=== PATIENT | female | born 1930 | race Caucasian/White ===

== ENCOUNTER 2018-12-13 03:43 | Emergency (ER) | payer MEDICARE ==
--- NOTE | 2018-12-13 03:53 | Emergency Department Record ---
History of Present Illness - General Chief Complaint: Shortness of breath Stated Complaint: MARLON Time Seen by Provider: 12/13/18 03:47 Source: Patient, EMS Mode of Arrival: Ambulatory Limitations: No limitations - History of Present Illness Initial Comments: 88 yo female presents with shortness of breath for three days per EMS. The patient denies any chest pain. Per the retirement records she moved into the facility on December 10. The EMS providers otherwise were unable to provide any other history. The patient has dementia and is a limited historian regarding historical details. The patient has not been to [facility] prior. The patient states she has not had cough, fever, pain. Other than a medication list no other medical history was provided. The patient was found hypoxic at the retirement in the 's. She was placed on BiPap with improvement into the s. MD Complaint: Shortness of breath -: Days(s) Severity: Moderate Quality: Other Consistency: Constant Improves With: Nothing Worsens With: Exertion Known History Of: Other Context: Other Associated Symptoms: Denies other symptoms Treatments Prior to Arrival: Other (BiPap) - Related Data Home Medications Medication Instructions Recorded Confirmed Last Taken Acetaminophen [Tylenol Es] 1 tab PO Q8HR PRN 12/13/18 12/13/18 12/12/18 Alendronate Sodium 70 mg PO WEEKLY 12/13/18 12/13/18 12/07/18 Calcium Carbonate/Vitamin D3 1 each PO DAILY 12/13/18 12/13/18 12/12/18 [Calcium 600 + Vit D Tablet] Cyanocobalamin (Vitamin B-12) 5,000 mcg PO DAILY 12/13/18 12/13/18 12/12/18 [Vitamin B12] Danazol 200 mg PO DAILY 12/13/18 12/13/18 12/12/18 Eltrombopag Olamine [Promacta] 75 mg PO DAILY 12/13/18 12/13/18 12/12/18 Folic Acid 1 mg PO DAILY 12/13/18 12/13/18 12/12/18 Levothyroxine Sodium 50 mcg PO DAILY 12/13/18 12/13/18 12/12/18 Metoprolol Succinate 25 mg PO DAILY 12/13/18 12/13/18 12/12/18 Multivitamin [Multiple Vitamins] 1 each PO DAILY 12/13/18 12/13/18 12/12/18 Prednisone 10 mg PO DAILY 12/13/18 12/13/18 12/12/18 Sertraline HCl [Zoloft] 50 mg PO DAILY 12/13/18 12/13/18 12/12/18 Warfarin Sodium 2.5 mg PO DAILY 12/13/18 12/13/18 12/12/18 Allergies Allergy/AdvReac Type Severity Reaction Status Date / Time No Known Drug Allergies Allergy Verified 12/13/18 03:59 Review of Systems ROS unobtainable: Other (On BiPap) Constitutional: Reports: Malaise, Weakness. Denies: Chills, Fever Eyes: Denies: Eye discharge ENT: Denies: Congestion, Throat pain Respiratory: Reports: Dyspnea. Denies: Cough Cardiovascular: Reports: Dyspnea on exertion, Edema. Denies: Chest pain, Palpitations, Syncope Endocrine: Reports: Fatigue Gastrointestinal: Denies: Abdominal pain, Diarrhea, Nausea, Vomiting Genitourinary: Denies: Dysuria, Urgency Musculoskeletal: Denies: Arthralgia, Back pain, Myalgia Skin: Denies: Bruising, Change in color, Rash Neurological: Denies: Headache Psychiatric: Denies: Anxiety Hematological/Lymphatic: Reports: Blood Clots. Denies: Easy bleeding, Easy bruising Physical Exam - General General Appearance: Alert, Cooperative, Mild distress - Head Head exam: Atraumatic, Normal inspection - Eye Eye exam: Normal appearance, PERRL. negative: Conjunctival injection, Scleral icterus - ENT ENT exam: Normal exam Ear exam: Normal external inspection Nasal Exam: Normal inspection Mouth exam: Normal external inspection - Neck Neck exam: Normal inspection - Respiratory Respiratory exam: Accessory muscle use, Decreased breath sounds, Prolonged expiratory, Rales. negative: Normal lung sounds bilaterally, Rhonchi - Cardiovascular Cardiovascular Exam: Regular rate, Normal rhythm, Normal heart sounds - GI/Abdominal GI/Abdominal exam: Soft. negative: Tenderness - Rectal Rectal exam: Deferred - exam: Deferred - Extremities Extremities exam: Normal inspection, Pedal edema (+1 bilateral) - Back Back exam: Denies: CVA tenderness (R), CVA tenderness (L) - Neurological Neurological exam: Alert - Psychiatric Psychiatric exam: Normal affect, Normal mood - Skin Skin exam: Dry, Intact, Normal color, Warm Course - Reevaluation(s) Reevaluation #1: [facility] was reviewed. 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 12/13/18 04:24 CBC Hgb 7.8 Plt 66 ABG: pO2 118 pCO2 35 pH 7.48 Pt 14.7 INR 1.5 12/13/18 04:27 CR is 1.1 with a GFR of 50 Pro BNP is 9774 12/13/18 04:29 CXR reviewed by me. CMG with PVC 12/13/18 04:30 NO aspirin given due to anemia and thrombocytopenia 12/13/18 04:32 The patient continues to tolerate the Bipap with improved effort in breathing. 12/13/18 04:39 12/13/18 04:41 Troponin is elevated at 0.043 [facility] contacted for transfer. 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 12/13/18 05:12 [facility] called back. I SW Dr Cheema. The patient was accepted to [facility] but no female telemetry beds are available and she will wait for a bed The son ,Enrique, strongly prefers to wait for a bed at [facility] to become available and not pursue a bed at [facility] at this time. Enrique was informed if bed do not become available then other plans wound need to be made. The patient is stable and improving so she will be trialed off Bipap. [facility] call and stated they plan on opening an over flow unit at 7am and we will be updated. 12/13/18 06:04 850 ml or urine out put Medical Decision Making - Lab Data Result diagrams: 12/13/18 03:53 12/13/18 03:53 Disposition Disposition: Transfer Clinical Impression: Hypoxia, Acute CHF, DNR (do not resuscitate) Anemia Qualifiers: Anemia type: unspecified type Qualified Code(s): D64.9 - Anemia, unspecified Disposition: Acute Care Hospital Transfer Transfer To: [facility] Reason For Transfer: CHF Accepting Physician: Arturo Time Discussed w/Accepting Physician: 04:54 Condition: (3) Guarded Forms: Patient Portal Access Time of Disposition: 04:54 Quality - Quality Measures Quality Measures: N/A - Blood Pressure Screening Does Patient Have Any of the Following: Active Dx of HTN Blood Pressure Classification: Hypertensive Reading Systolic Measurement: 133 Diastolic Measurement: 95 Screening for High Blood Pressure: Patient Exclusion, Hx of HTN [G9744]
[2018-12-13 04:02] LABS: HEMATOCRIT 27.6 % (35.0-47.0); HEMOGLOBIN 7.8 gm/dl (11.6-16.0); MEAN CELL VOLUME 101.1 fl (81-97); MEAN CORPUSCULAR HGB CONC 28.3 g/dl (32-36); RED BLOOD COUNT 2.73 M/uL (3.80-5.40); RED CELL DISTRIBUTION WIDTH 21.5 % (11.5-14.5); WHITE BLOOD COUNT W/O DIFF 8.9 K/uL (4.2-12.2)
[2018-12-13] MEDS ORDERED: FUROSEMIDE IV 40MG/4ML VIAL IVP ONE (04:03)
[2018-12-13 04:08] LABS: MEAN CORPUSCULAR HEMOGLOBIN 28.5 pg (27-33)
[2018-12-13 04:10] LABS: INR 1.5; PARTIAL THROMBOPLASTIN TIME 30.1 SECONDS (24.5-39.1); PROTHROMBIN TIME (PATIENT) 14.7 SECONDS (9.5-12.1)
[2018-12-13] MEDS ORDERED: NITROGLYCERIN/D5W 50 MG/250 ML ML IV SCH (04:15)
[2018-12-13 04:18] LABS: BILIRUBIN,TOTAL 0.4 mg/dL (0.2-1.0); CREATININE 1.1 mg/dL (0.5-0.9); TOTAL PROTEIN 5.3 g/dL (6.6-8.7)
[2018-12-13 04:19] LABS: ARTERIAL BLOOD GAS BASE EXCESS 2.7 mmol/L (-2 - 3); ARTERIAL BLOOD GAS PCO2 35.7 mmHg (35-48); ARTERIAL BLOOD GAS pH 7.48 (7.35-7.45)
[2018-12-13 04:21] LABS: ARTERIAL BLD GAS O2 SATURATION 97.4 % (95-98)
[2018-12-13 04:22] LABS: CARBOXYHEMOGLOBIN 6.1 % (0-1.5); TOTAL HEMOGLOBIN 7.2 g/dl (11.6-16)
[2018-12-13 04:23] LABS: ALB/GLOB RATIO 1.7 (1.1-1.8); ALBUMIN 3.3 g/dL (4.0-5.0)
[2018-12-13 04:23] LABS: ALLEN TEST PASS; O2 HEMOGLOBIN 95.3 % vol (94-99)
[2018-12-13 04:36] LABS: ABSOLUTE NEUTROPHIL COUNT 5.42
[2018-12-13 04:37] LABS: ANISOCYTOSIS 2+; HYPOCHROMIA 1+; PLATELET COUNT 66 K/uL (130-400); PLATELET ESTIMATE DECREASED (NORMAL)
[2018-12-13 04:46] LABS: URINE APPEARANCE CLEAR; URINE BILIRUBIN NEGATIVE (NEGATIVE); URINE BLOOD NEGATIVE (NEGATIVE); URINE COLOR YELLOW; URINE GLUCOSE (UA) NEGATIVE (NEGATIVE); URINE KETONE NEGATIVE (NEGATIVE); URINE LEUKOCYTE ESTERASE NEGATIVE (NEGATIVE); URINE NITRITE NEGATIVE (NEGATIVE); URINE PROTEIN NEGATIVE (NEGATIVE); URINE UROBILINOGEN 0.2 E.U./dL (0.20 - 1.00)
--- NOTE | 2018-12-15 07:29 | RADIOLOGY REPORT ---
EXAM: CHEST, SINGLE VIEW HISTORY: DYSPNEA FOR 2-3 DAYS. TECHNIQUE: A single view of the chest was obtained. Comparison: None. FINDINGS: The cardiomediastinal silhouette is enlarged. There is moderate bilateral upper lobe air space disease. Scattered air space disease elsewhere. Small bilateral pleural effusions. There is a pleural opacity within the lateral right lung which may relate to loculated fluid. Additionally the trachea is initially deviated to the left and subsequently deviated to the right with space occupying mass is in these regions, not excluded. Some of this could relate to patient positioning. IMPRESSION: 1. MODERATE BILATERAL UPPER LOBE AIR SPACE DISEASE. 2. THERE APPEARS TO BE A PLEURAL OPACITY IN THE LATERAL RIGHT HEMITHORAX WHICH COULD RELATE TO LOCULATED FLUID OR OTHER PROCESS. 3. SMALL BILATERAL PLEURAL EFFUSIONS. 4. THERE IS SOME DEVIATION OF THE TRACHEA OF UNCERTAIN SIGNIFICANCE. MASS NOT EXCLUDED. 5. CT CHEST COULD BE PERFORMED FOR FURTHER ASSESSMENT CLINICALLY INDICATED. JOB NUMBER: [id number] MTDD
== END 2018-12-13 08:25 | disposition short-term general hospital (02) ==
LOC: ER 03:43
DX: I11.0 Hypertensive heart disease with heart failure (principal); I50.9 Heart failure, unspecified; E03.9 Hypothyroidism, unspecified; D59.1 Other autoimmune hemolytic anemias; B20 Human immunodeficiency virus [HIV] disease; F02.80 Dementia in other diseases classified elsewhere, unspecified severity, without behavioral disturbance, psychotic disturbance, mood disturbance, and anxiety; I25.2 Old myocardial infarction; Z79.01 Long term (current) use of anticoagulants
CPT/HCPCS: 36600; 71045; 80053; 81003; 82375; 82803; 83880; 84484; 85027; 85610; 85730; 93005; 93010; 93041; 94660; 96365; 96375; 99285; J1940

== ENCOUNTER 2018-12-17 23:07 | Emergency (ER) | payer MEDICARE ==
[2018-12-17 23:56] LABS: ABSOLUTE NEUTROPHIL COUNT 3.07; HEMATOCRIT 27.6 % (35.0-47.0); HEMOGLOBIN 7.7 gm/dl (11.6-16.0); MEAN CELL VOLUME 101.5 fl (81-97); MEAN CORPUSCULAR HEMOGLOBIN 28.3 pg (27-33); MEAN CORPUSCULAR HGB CONC 27.9 g/dl (32-36); PLATELET COUNT 97 K/uL (130-400); RED BLOOD COUNT 2.72 M/uL (3.80-5.40); RED CELL DISTRIBUTION WIDTH 20.1 % (11.5-14.5); WHITE BLOOD COUNT W/O DIFF 5.4 K/uL (4.2-12.2)
[2018-12-18 00:03] LABS: HYPOCHROMIA 1+
[2018-12-18 00:08] LABS: INR 2.3; PARTIAL THROMBOPLASTIN TIME 34.7 SECONDS (24.5-39.1); PROTHROMBIN TIME (PATIENT) 22.4 SECONDS (9.5-12.1)
--- NOTE | 2018-12-18 00:23 | Emergency Department Record ---
History of Present Illness - General Chief Complaint: Fall Injury Stated Complaint: FALL Time Seen by Provider: 12/17/18 23:25 Source: Patient, EMS Mode of Arrival: EMS Limitations: No limitations - History of Present Illness Initial Comments: pt fell tripping over oxygen tubing. she hit head and r elbow. she has pain in her r hip. she was just d/cd from [facility] for chf and copd and was sent home on o2. originally we were told that she did not have coumadin since 12/13. MD Complaint: Fall Onset/Timin -: Days(s) Fall From: Standing When Fall Occurred: Just prior to arrival Fall Witnessed: No Place Fall Occurred: jail[facility]SNF Loss of Consciousness: None Prolonged Down Time?: No Symptoms Prior to Fall: None Location: Head, Neck Location - Extremities: Right: Elbow, Thigh Severity: Moderate Context: Tripped/slipped Associated Symptoms: Denies - [place] Coma Scale Eye Response: (4) Open spontaneously Motor Response: (6) Obeys commands Verbal Response: (5) Oriented [place] Total: 15 - Related Data Home Medications Medication Instructions Recorded Confirmed Last Taken Furosemide 40 mg PO DAILY 12/17/18 12/17/18 Unknown Potassium Chloride 10 meq PO DAILY 12/17/18 12/17/18 Unknown Previous Rx's Medication Instructions Recorded Cephalexin [Keflex] 500 mg PO TID #20 cap 12/18/18 Allergies Allergy/AdvReac Type Severity Reaction Status Date / Time No Known Drug Allergies Allergy Verified 12/13/18 03:59 Travel Screening - Travel/Exposure Within Last 30 Days Have you traveled within the last 30 days?: No Review of Systems Reviewed: No additional complaints except as noted below Constitutional: Reports: As per HPI. Denies: Chills, Fever, Malaise, Night sweats, Weakness, Weight change Eyes: Reports: As per HPI. Denies: Eye discharge, Eye pain, Photophobia, Vision change ENT: Reports: As per HPI. Denies: Congestion, Dental pain, Ear pain, Epistaxis, Hearing loss, Throat pain Respiratory: Reports: As per HPI, Dyspnea. Denies: Cough, Hemoptysis, Stridor, Wheezes Cardiovascular: Reports: As per HPI, Arrhythmia. Denies: Chest pain, Dyspnea on exertion, Edema, Murmurs, Orthopnea, Palpitations, Paroxysmal nocturnal dyspnea, Rheumatic Fever, Syncope Endocrine: Reports: As per HPI. Denies: Fatigue, Heat or cold intolerance, Polydipsia, Polyuria Gastrointestinal: Reports: As per HPI. Denies: Abdominal pain, Constipation, Diarrhea, Hematemesis, Hematochezia, Melena, Nausea, Vomiting Genitourinary: Reports: As per HPI. Denies: Abnormal menses, Discharge, Dyspareunia, Dysuria, Frequency, Hematuria, Incontinence, Retention, Urgency Musculoskeletal: Reports: As per HPI. Denies: Arthralgia, Back pain, Gout, Joint swelling, Myalgia, Neck pain Skin: Reports: As per HPI. Denies: Bruising, Change in color, Change in hair/nails, Lesions, Pruritus, Rash Neurological: Reports: As per HPI. Denies: Abnormal gait, Confusion, Headache, Numbness, Paresthesias, Seizure, Tingling, Tremors, Vertigo, Weakness Psychiatric: Reports: As per HPI. Denies: Anxiety, Auditory hallucinations, Depression, Homicidal thoughts, Suicidal thoughts, Visual hallucinations Hematological/Lymphatic: Reports: As per HPI. Denies: Anemia, Blood Clots, Easy bleeding, Easy bruising, Swollen glands Past Medical History - SOCIAL HISTORY Smoking Status: Never smoker Alcohol Use: None Drug Use: None - RESPIRATORY Hx Respiratory Disorders: Yes Hx COPD: Yes - CARDIOVASCULAR Hx Cardio Disorders: Yes Hx Heart Attack: Yes - NEURO Hx Neuro Disorders: Yes Hx CVA: Yes - GI Hx GI Disorders: No - Hx Genitourinary Disorders: No - ENDOCRINE Hx Endocrine Disorders: No - MUSCULOSKELETAL Hx Musculoskeletal Disorders: No - PSYCH Hx Psych Problems: No - HEMATOLOGY/ONCOLOGY Hx Hematology/Oncology Disorders: No Family Medical History Any Significant Family History?: No Physical Exam - General General Appearance: Alert, Oriented x3, Cooperative, Mild distress - Head Head exam: Normal inspection - Eye Eye exam: Normal appearance, PERRL, EOMI Pupils: Normal accommodation - ENT ENT exam: Normal exam, Mucous membranes moist, Normal external ear exam, Normal orophraynx Ear exam: Normal external inspection. negative: External canal tenderness Nasal Exam: Normal inspection. negative: Discharge, Sinus tenderness Mouth exam: Normal external inspection, Tongue normal Teeth exam: Normal inspection. negative: Dental caries Throat exam: Normal inspection. negative: Tonsillar erythema, Tonsillar exudate - Neck Neck exam: Normal inspection, Full ROM. negative: Tenderness - Respiratory Respiratory exam: Normal lung sounds bilaterally. negative: Respiratory distress - Cardiovascular Cardiovascular Exam: Regular rate, Normal heart sounds, Irregular rhythm - GI/Abdominal GI/Abdominal exam: Soft, Normal bowel sounds. negative: Tenderness - Rectal Rectal exam: Deferred - exam: Deferred - Extremities Extremities exam: Normal inspection, Full ROM, Normal capillary refill, Tenderness (r elbow and r hip. bursa has swelling) - Back Back exam: Reports: Normal inspection, Full ROM. Denies: Muscle spasm, Rash noted, Tenderness - Neurological Neurological exam: Alert, Normal gait, Oriented X3, Reflexes normal - Psychiatric Psychiatric exam: Normal affect, Normal mood - Skin Skin exam: Dry, Intact, Normal color, Warm Course Vital Signs 12/17/18 23:23 Temperature 97.6 F Pulse Rate [ 89 Pulse Ox Probe] Respiratory 20 Rate Blood Pressure 132/80 [Left Arm] Pulse Ox 99 Medical Decision Making - Lab Data Result diagrams: 12/17/18 23:52 12/17/18 23:52 Lab Results 12/17/18 12/17/18 12/17/18 Range/Units 23:52 23:52 23:52 WBC 5.4 (4.2-12.2) K/uL RBC 2.72 L (3.80-5.40) M/uL Hgb 7.7 L (11.6-16.0) gm/dl Hct 27.6 L (35.0-47.0) % MCV 101.5 H (81-97) fl MCH 28.3 (27-33) pg MCHC 27.9 L (32-36) g/dl RDW 20.1 H (11.5-14.5) % Plt Count 97 L (130-400) K/uL Neutrophils % 60.0 (47-80) % Band Neutrophils % 0.0 (0-5) % Eosinophils % Not Reportable Basophils % Not Reportable Absolute Neutrophils 3.07 Lymphocytes 13.0 L (16-45) % Monocytes 27.0 H (0-9) % Basophils 0.0 (0-6) % Hypochromasia 1+ Eosinophil Count 0.0 (0-6) % PT 22.4 H (9.5-12.1) SECONDS INR 2.3 APTT 34.7 (24.5-39.1) SECONDS Sodium 144 (136-145) mmol/L Potassium 4.6 H (3.4-4.5) mmol/L Chloride 103 (98-107) mmol/L Carbon Dioxide 29.0 (22-29) mmol/L Anion Gap 12.0 (7-16) BUN 33 H (8-23) mg/dL Creatinine 1.0 H (0.5-0.9) mg/dL Estimated GFR 56 mL/min Random Glucose 101 (74-109) mg/dL Calcium 8.7 L (8.8-10.2) mg/dL Disposition Disposition: Discharge Clinical Impression: Multiple contusions Head injury Qualifiers: Encounter type: initial encounter Qualified Code(s): S09.90XA - Unspecified injury of head, initial encounter Anemia Qualifiers: Anemia type: unspecified type Qualified Code(s): D64.9 - Anemia, unspecified Bursitis Qualifiers: Bursitis location: elbow Elbow bursitis location: olecranon bursitis Laterality: right Qualified Code(s): M70.21 - Olecranon bursitis, right elbow Disposition: [facility] Care Facility Condition: (1) Good Instructions: Fall Prevention for Older Adults (ED), Head Injury (ED), Contusion in Adults (ED), Anemia (ED) Additional Instructions: recheck hgb in 4 days and PT and transfuse if necessary if below 7.5. return sooner if worse Prescriptions: Cephalexin [Keflex] 500 mg PO TID #20 cap Forms: Patient Portal Access Quality - Quality Measures Quality Measures: N/A - Blood Pressure Screening Does Patient Have Any of the Following: Active Dx of HTN Blood Pressure Classification: Pre-Hypertensive BP Reading Systolic Measurement: 132 Diastolic Measurement: 80 Screening for High Blood Pressure: Patient Exclusion, Hx of HTN [G9744]
--- NOTE | 2018-12-20 20:55 | RADIOLOGY REPORT ---
EXAM: HIP,UNILAT, 2-3 VIEW RIGHT HISTORY: RIGHT HIP PAIN STATUS POST FALL. PREVIOUS ARTHROPLASTY. TECHNIQUE: An AP view of the pelvis and AP and lateral views of the right hip were obtained. COMPARISON: None. FINDINGS: The patient is status post right total hip arthroplasty. The orthopedic components appear normal. There is no evidence for component loosening or dislocation. There is the suggestion for a nondisplaced fracture involving the right inferior pubic ramus. No other fractures are identified. IMPRESSION: 1. SUSPECTED NONDISPLACED FRACTURE OF THE RIGHT INFERIOR PUBIC RAMUS. 2. STATUS POST RIGHT TOTAL HIP ARTHROPLASTY WITH NO COMPLICATING FEATURES. JOB NUMBER: [id number] MTDD
--- NOTE | 2018-12-20 20:59 | RADIOLOGY REPORT ---
EXAM: ELBOW, RIGHT 3 VIEWS HISTORY: RIGHT ELBOW PAIN STATUS POST FALL. TECHNIQUE: Three views of the right elbow were obtained. COMPARISON: None. ENCOUNTER: Initial. FINDINGS: There is prominent soft tissue swelling within the region of the olecranon bursa suggesting traumatic bursitis. The bones appear intact. There is no acute fracture or joint effusion. There is an oval circumscribed lucent mass- like lesion involving the anterolateral aspect of the elbow just deep to the skin surface at the olecranon process. This may represent a lipoma or sebaceous cyst. Correlate clinically. IMPRESSION: 1. FINDINGS SUGGESTIVE OF TRAUMATIC OLECRANON BURSITIS. 2. NO ACUTE FRACTURE OR JOINT EFFUSION. 3. SUSPECTED SEBACEOUS CYST OR LIPOMA SUPERFICIALLY ALONG THE ANTEROLATERAL ASPECT OF THE ELBOW. JOB NUMBER: [id number] MTDD
--- NOTE | 2018-12-20 21:19 | CT SCAN REPORT ---
EXAM: CT SCAN HEAD WO CONTRAST HISTORY: PATIENT FELL AND HIT THE BACK OF THE HEAD. TECHNIQUE: Standard CT imaging of the brain was performed in the axial plane without contrast. HAND DOMINANCE: Unknown. ENCOUNTER: Initial. COMPARISON: None. FINDINGS: There is mild generalized atrophy. Mild chronic small vessel ischemic changes are present within the periventricular and subcortical white matter of both cerebral hemispheres. There are small old infarcts involving the left parietal and bilateral occipital lobes. There is no mass, mass effect, intracranial hemorrhage, visible acute infarct, or abnormal extraaxial fluid. The skull is intact. There is a mucous retention cyst at the floor of the right maxillary sinus. The sinuses and mastoids are otherwise normal. The orbits are unremarkable. IMPRESSION: 1. NO ACUTE INTRACRANIAL ABNORMALITY OR SKULL FRACTURE. 2. MILD ATROPHY AND CHRONIC SMALL VESSEL ISCHEMIC CHANGES. 3. SMALL OLD CORTICAL INFARCTS WITHIN THE LEFT PARIETAL AND BOTH OCCIPITAL LOBES. JOB NUMBER: [id number] MTDD
--- NOTE | 2018-12-20 21:24 | CT SCAN REPORT ---
EXAM: CT SCAN CERVICAL SPINE WO CONTRAST HISTORY: STATUS POST FALL. HIT THE BACK OF THE HEAD. TECHNIQUE: Standard CT imaging of the cervical spine was performed in the axial plane without contrast. Additional coronal and sagittal reformatted images were also performed. COMPARISON: None. ENCOUNTER: Initial. FINDINGS: There is normal cervical lordosis. The craniocervical and cervicothoracic junctions are normal. Disc space narrowing, endplate degenerative changes, and facet arthropathy are present throughout. There is no central canal stenosis. There is mild neural foraminal narrowing at multiple levels. Very slight anterolisthesis of C7 on T1 appears degenerative in nature. Multiple old right posterior rib fractures are present. Dextroconvex scoliosis is noted within the upper thoracic spine. The neck soft tissues appear normal. A mucous retention cyst is present within the right maxillary sinus. Pleural and parenchymal scarring are noted at the lung apices. IMPRESSION: 1. NO ACUTE CERVICAL SPINE PATHOLOGY. 2. MULTILEVEL DEGENERATIVE DISC DISEASE AND FACET ARTHROPATHY. JOB NUMBER: [id number] [facility]
== END 2018-12-18 02:02 ==
LOC: ER 23:07
DX: S70.01XA Contusion of right hip, initial encounter (principal); S09.90XA Unspecified injury of head, initial encounter; S50.811A Abrasion of right forearm, initial encounter; M70.32 Other bursitis of elbow, left elbow; D64.9 Anemia, unspecified; M54.2 Cervicalgia; I50.9 Heart failure, unspecified; J44.9 Chronic obstructive pulmonary disease, unspecified; Z99.81 Dependence on supplemental oxygen; W01.10XA Fall on same level from slipping, tripping and stumbling with subsequent striking against unspecified object, initial encounter; Y92.129 Unspecified place in nursing home as the place of occurrence of the external cause; I25.2 Old myocardial infarction; Z96.641 Presence of right artificial hip joint
CPT/HCPCS: 70450; 72125; 80048; 85027; 85610; 85730; 99284

== ENCOUNTER 2019-01-15 16:20 | Inpatient (IN) | payer MEDICARE ==
[2019-01-15] MEDS ORDERED: ACETAMINOPHEN 325 MG TAB PO PRN (19:12)
[2019-01-15] MEDS: DANAZOL 200 MG MC SCH (21:25)
[2019-01-15] MEDS: PROMACTA 75 MG MC SCH (21:26)
[2019-01-16] MEDS: HYDROCODONE/APAP 7.5/325MG TABLET PO PRN (06:29)
[2019-01-16] MEDS: LEVOTHYROXINE SODIUM 50 MCG TABLET PO SCH (06:29)
[2019-01-16] MEDS: PREDNISONE 1 MG TABLET PO SCH (09:18)
[2019-01-16] MEDS: POTASSIUM CHLORIDE 10 MEQ TAB PO SCH (09:19)
[2019-01-16] MEDS: FOLIC ACID 1 MG TABLET PO SCH (09:19)
[2019-01-16] MEDS: FUROSEMIDE 40 MG TABLET PO SCH (09:20)
[2019-01-16] MEDS: POLYETHYLENE GLY 17 GM PACKET PO SCH (09:20)
[2019-01-16] MEDS: DANAZOL 200 MG MC SCH (09:22)
[2019-01-16] MEDS: PROMACTA 75 MG MC SCH (09:22)
[2019-01-16] MEDS: METOPROLOL SUCC 25 MG TAB.ER PO SCH (09:23)
[2019-01-16] MEDS: CYANOCOBALAMIN (VITAMIN B-12) 100 MCG TABLET PO SCH (09:24)
[2019-01-16] MEDS: SERTRALINE HCL 50 MG TABLET PO SCH (09:25)
[2019-01-16] MEDS ORDERED: ACETAMINOPHEN 500 MG TABLET PO PRN (10:28)
--- NOTE | 2019-01-16 10:45 | History & Physical ---
History of Present Illness - Date Date of Service for History & Physical: 01/16/19 General - Cognitive Patterns Orientation: Oriented x3 - Communication Preferred Language?: [place] Car Trimmer Required: No Level of Education: College Preferred Method of Learning: Seeing, Doing, Reading Comprehension Ability: No Impairment Able to Read: Yes Able to Write: Yes Select best description of speech pattern: Clear Speech Ability to express ideas and wants: Understood Understanding verbal content: Understands - Psychosocial Well-Being Usual Living Arrangement: Custodial Facility Living Arrangement Comment: ICAL - Physical Functioning Activity Level: Up with assist x2 Turning: With partial assist Ambulation Ability: Needs Assist Bed Mobility: Needs Assist Transfer Ability: Needs Assist Bathing Ability: Needs Assist Personal Hygiene: Needs Assist Dressing Ability: Needs Assist Eating (Feeding) Ability: Independent Toileting Ability: Needs Assist Administer Own Medication: Needs Assist - Continence Bowel Pattern: Normal for Patient Bladder Pattern: Normal, Incontinent - Dental Status Unable to examine: No Broken or loosely fitting full or partial dentures: No No natural teeth or tooth fragment(s) (edentulous): No Abnormal mouth tissue (ulcers, masses, oral lesions, etc.): No Obvious or likely cavity or broken natural teeth: No Inflamed or bleeding gums or loose natural teeth: No Mouth/facial pain, discomfort or difficulty chewing: No - Nutrition Screening Poor oral intake > 1 week: No Unplanned weight loss in specified time frame: No Nutrition Support via tube feedings or parenteral nutrition: No Pressure Ulcer: No Significantly underweight define as BMI <18.5 kg/m2: No Albumin <2.5mg/dL: No Persistent nausea/vomiting/diarrhea >3 days: No Difficulty chewing/swallowing/mouth sores: No Admitting Diagnosis: Yes Nutrition Risk Score: Low Risk Past Medical History - SOCIAL HISTORY Smoking Status: Never smoker Alcohol Use: None - SURGICAL HISTORY Past Surgical History: hyesterectomy. tonsils - RESPIRATORY Hx Respiratory Disorders: Yes Hx COPD: Yes - CARDIOVASCULAR Hx Cardio Disorders: Yes Hx Heart Attack: Yes - NEURO Hx Neuro Disorders: Yes Hx CVA: Yes - GI Hx GI Disorders: No - Hx Genitourinary Disorders: No - ENDOCRINE Hx Endocrine Disorders: No - MUSCULOSKELETAL Hx Musculoskeletal Disorders: No - PSYCH Hx Psych Problems: No - HEMATOLOGY/ONCOLOGY Hx Hematology/Oncology Disorders: No Family Medical History Any Significant Family History?: No Hx Dementia: Father, Brother/Sister Hx Diabetes: Grandparents Hx Heart Disease: Father H&P Meds/Allergies - Allergies Allergies: Allergies Allergy/AdvReac Type Severity Reaction Status Date / Time No Known Drug Allergies Allergy Verified 12/13/18 03:59 - Home Medications Previous Rx's Medication Instructions Recorded Cephalexin [Keflex] 500 mg PO TID #20 cap 12/18/18 - Active Medications Active Medications: Current Medications Acetaminophen (Tylenol 325mg) 500 mg PO Q6H PRN PRN Reason: PAIN/HEADACHE/TEMP>100.5 Hydrocodone Bitart/Acetaminophen ([place] 7.5mg/325mg) 1 each PO Q6H PRN PRN Reason: PAIN - MILD (1-4) Last Admin: 01/16/19 06:29 Dose: 1 each Documented by: Cyanocobalamin (Vitamin B-12) 500 mcg PO DAILY [facility] Last Admin: 01/16/19 09:24 Dose: 500 mcg Documented by: Folic Acid () 1 mg PO DAILY [facility] Last Admin: 01/16/19 09:19 Dose: 1 mg Documented by: Furosemide (Lasix) 40 mg PO DAILY [facility] Last Admin: 01/16/19 09:20 Dose: 40 mg Documented by: Levothyroxine Sodium (Synthroid) 50 mcg PO DAILYTHY [facility] Last Admin: 01/16/19 06:29 Dose: 50 mcg Documented by: Metoprolol Succinate (Toprol Xl) 12.5 mg PO DAILY [facility] Last Admin: 01/16/19 09:23 Dose: 12.5 mg Documented by: Patient Own Med: (Promacta 75mg) 1 each MC DAILY [facility] Last Admin: 01/16/19 09:22 Dose: 1 each Documented by: Patient Own Med: (Danazol 200mg) 1 each MC DAILY [facility] Last Admin: 01/16/19 09:22 Dose: 1 each Documented by: Polyethylene Glycol (Miralax) 17 gm PO DAILY [facility] Last Admin: 01/16/19 09:20 Dose: 17 gm Documented by: Potassium Chloride (Klor-Con) 10 meq PO DAILY [facility] Last Admin: 01/16/19 09:19 Dose: 10 meq Documented by: Prednisone (Prednisone 1mg) 2.5 mg PO DAILYWM [facility] Last Admin: 01/16/19 09:18 Dose: 2.5 mg Documented by: Sertraline HCl (Zoloft) 50 mg PO DAILY [facility] Last Admin: 01/16/19 09:25 Dose: 50 mg Documented by: Warfarin Sodium (Coumadin) 3 mg PO [id number] [facility] Physical Exam - Vital Signs Vital Signs: Vital Signs - Last 24 Hrs Temp Pulse Resp BP Pulse Ox 01/16/19 07:39 98.4 F 94 H 18 136/78 97 01/15/19 21:14 98.3 F 109 H 20 141/73 92 L 01/15/19 18:34 97.8 F 110 H 18 130/58 91 L Discharge Potential - Discharge Needs Community Services Used Prior to Admission: None Patient Discharge Plan Description: AFC/Assisted Living Community Services Needed at Discharge: None Plan - Swing Bed Certification Initial Certification Due: 01/16/19 14 Day Re-Cert Due: 01/30/19 44 Day Re-Cert Due: 03/01/19 74 Day Re-Cert Due: 03/31/19
[2019-01-16 11:17] LABS: INR 1.5; PROTHROMBIN TIME (PATIENT) 15.5 SECONDS (9.5-12.1)
--- NOTE | 2019-01-16 14:08 | History & Physical ---
History of Present Illness - Date Date of Service for History & Physical: 01/16/19 - History of Present Illness History of Present Illness: Mrs. Sousa is an 88 y/o female with recent admission to [facility] after developing a a hematoma of the right hip. The patient hand total right hip replacement in September of this year and and subsequently she had a dislocation of the prosthetic joint. The joint was reduced by Orthopedic surgery and knee immobilizer fitted. It was recommended that the patient go to subacute rehab on after recent admission for CHF exacerbation but the family and the patient decided to have the patient return to [facility] living. 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 The patient is admitting to swing bed for deconditioning. PCP: Dr. Maurice Gracia General - Cognitive Patterns Orientation: Oriented x3, Person, Place, Time - Communication Preferred Language?: Romanian Bed Teacher Required: No Level of Education: College Preferred Method of Learning: Seeing, Doing, Reading Comprehension Ability: No Impairment Able to Read: Yes Able to Write: Yes Select best description of speech pattern: Clear Speech Ability to express ideas and wants: Understood Understanding verbal content: Understands - Psychosocial Well-Being Usual Living Arrangement: [facility] Living Arrangement Comment: ICAL - Physical Functioning Activity Level: Up with assist x2 Turning: With partial assist ROM Ability: Moves all extremities Assistive Devices: Walker Ambulation Ability: Needs Assist Bed Mobility: Needs Assist Transfer Ability: Needs Assist Bathing Ability: Needs Assist Personal Hygiene: Needs Assist Dressing Ability: Needs Assist Eating (Feeding) Ability: Independent Toileting Ability: Needs Assist Administer Own Medication: Needs Assist - Continence Bowel Pattern: Normal for Patient Bladder Pattern: Normal - Dental Status Unable to examine: No Broken or loosely fitting full or partial dentures: No No natural teeth or tooth fragment(s) (edentulous): No Abnormal mouth tissue (ulcers, masses, oral lesions, etc.): No Obvious or likely cavity or broken natural teeth: No Inflamed or bleeding gums or loose natural teeth: No Mouth/facial pain, discomfort or difficulty chewing: No - Nutrition Screening Poor oral intake > 1 week: No Unplanned weight loss in specified time frame: No Nutrition Support via tube feedings or parenteral nutrition: No Pressure Ulcer: No Significantly underweight define as BMI <18.5 kg/m2: No Albumin <2.5mg/dL: No Persistent nausea/vomiting/diarrhea >3 days: No Difficulty chewing/swallowing/mouth sores: No Admitting Diagnosis: Yes Nutrition Risk Score: Low Risk Past Medical History - SOCIAL HISTORY Smoking Status: Never smoker Alcohol Use: None - SURGICAL HISTORY Past Surgical History: hyesterectomy. tonsils - RESPIRATORY Hx Respiratory Disorders: Yes Hx COPD: Yes - CARDIOVASCULAR Hx Cardio Disorders: Yes Hx Heart Attack: Yes - NEURO Hx Neuro Disorders: Yes Hx CVA: Yes - GI Hx GI Disorders: No - Hx Genitourinary Disorders: No - ENDOCRINE Hx Endocrine Disorders: No - MUSCULOSKELETAL Hx Musculoskeletal Disorders: No - PSYCH Hx Psych Problems: No - HEMATOLOGY/ONCOLOGY Hx Hematology/Oncology Disorders: No Family Medical History Any Significant Family History?: No Hx Dementia: Father, Brother/Sister Hx Diabetes: Grandparents Hx Heart Disease: Father H&P Meds/Allergies - Allergies Allergies: Allergies Allergy/AdvReac Type Severity Reaction Status Date / Time No Known Drug Allergies Allergy Verified 12/13/18 03:59 - Home Medications Previous Rx's Medication Instructions Recorded Cephalexin [Keflex] 500 mg PO TID #20 cap 12/18/18 - Active Medications Active Medications: Current Medications Acetaminophen (Tylenol 325mg) 500 mg PO Q6H PRN PRN Reason: PAIN/HEADACHE/TEMP>100.5 Hydrocodone Bitart/Acetaminophen ([place] 7.5mg/325mg) 1 each PO Q6H PRN PRN Reason: PAIN - MILD (1-4) Last Admin: 01/16/19 06:29 Dose: 1 each Documented by: Cyanocobalamin (Vitamin B-12) 500 mcg PO DAILY [facility] Last Admin: 01/16/19 09:24 Dose: 500 mcg Documented by: Folic Acid () 1 mg PO DAILY [facility] Last Admin: 01/16/19 09:19 Dose: 1 mg Documented by: Furosemide (Lasix) 40 mg PO DAILY [facility] Last Admin: 01/16/19 09:20 Dose: 40 mg Documented by: Levothyroxine Sodium (Synthroid) 50 mcg PO DAILYTHY [facility] Last Admin: 01/16/19 06:29 Dose: 50 mcg Documented by: Metoprolol Succinate (Toprol Xl) 12.5 mg PO DAILY [facility] Last Admin: 01/16/19 09:23 Dose: 12.5 mg Documented by: Patient Own Med: (Promacta 75mg) 1 each MC DAILY [facility] Last Admin: 01/16/19 09:22 Dose: 1 each Documented by: Patient Own Med: (Danazol 200mg) 1 each MC DAILY [facility] Last Admin: 01/16/19 09:22 Dose: 1 each Documented by: Polyethylene Glycol (Miralax) 17 gm PO DAILY [facility] Last Admin: 01/16/19 09:20 Dose: 17 gm Documented by: Potassium Chloride (Klor-Con) 10 meq PO DAILY [facility] Last Admin: 01/16/19 09:19 Dose: 10 meq Documented by: Prednisone (Prednisone 1mg) 2.5 mg PO DAILYWM [facility] Last Admin: 01/16/19 09:18 Dose: 2.5 mg Documented by: Sertraline HCl (Zoloft) 50 mg PO DAILY [facility] Last Admin: 01/16/19 09:25 Dose: 50 mg Documented by: Warfarin Sodium (Coumadin) 3 mg PO [id number] [facility] Physical Exam - Vital Signs Vital Signs: Vital Signs - Last 24 Hrs Temp Pulse Resp BP Pulse Ox 01/16/19 07:39 98.4 F 94 H 18 136/78 97 01/15/19 21:14 98.3 F 109 H 20 141/73 92 L 01/15/19 18:34 97.8 F 110 H 18 130/58 91 L - General General Appearance: Alert, Cooperative Limitations: Physical limitation - Head Head exam: Atraumatic, Normocephalic - Eye Eye exam: Normal appearance, PERRL - ENT ENT exam: Normal exam - Respiratory Respiratory exam: Normal lung sounds bilaterally - Cardiovascular Cardiovascular Exam: Regular rate, Normal rhythm Peripheral Pulses: 3+: Radial (R), Radial (L), Dorsalis Pedis (R), Dorsalis Pedis (L) - GI/Abdominal GI/Abdominal exam: Soft, Normal bowel sounds - Extremities Extremities exam: Tenderness (right hip), Other (right hip/trochanter mildly tender to touch, no significant erythema ). negative: Normal inspection (postsurgical scar of right hip, right knee immobilzer. ) - Neurological Neurological exam: negative: Abnormal gait - Skin Skin exam: Erythema (mild of right hip), Other (ecchymosis of bilateral right upper ext) H&P Results - Labs Labs Last 24 Hours: Laboratory Results - last 24 hr 01/16/19 10:54 PT 15.5 H INR 1.5 Discharge Potential - Discharge Needs Community Services Used Prior to Admission: None Patient Discharge Plan Description: AFC/Assisted Living Community Services Needed at Discharge: None Plan - Swing Bed Certification Initial Certification Due: 01/16/19 14 Day Re-Cert Due: 01/30/19 44 Day Re-Cert Due: 03/01/19 74 Day Re-Cert Due: 03/31/19 - Detailed Diagnosis and Plan (1) Physical deconditioning Current Visit: Yes Status: Acute Base Code: R53.81 - OTHER MALAISE Comment: 01/16/19: - 2/2 to right hip pain from recent total hip replacement with complication of dislocation and hematoma. - Difficulty with transfering from wheelchair and is an assist with ambulation. - PT/OT evaluation on FridayJanuary 18. (2) Hematoma of right hip Current Visit: Yes Status: Acute Base Code: S70.01XA - CONTUSION OF RIGHT HIP, INITIAL ENCOUNTER Comment: 01/16/19: - Resolving. - PT/INR at [facility] 01/14: 15/1.6 - Resuming Warfarin dose of 3mg QD. - Repeat PT/INR today. (3) Status post right hip replacement Current Visit: Yes Status: Acute Base Code: Z96.641 - PRESENCE OF RIGHT ARTIFICIAL HIP JOINT Comment: 01/16/19: - Total hip replacement 09/2018 w/ complication of dislocation and most recently hematoma. - Baldwin 7.5mg/325mg Q6H prn, Tylenol 500mg Q6H prn. - Follow up with Orthopedic surgery as planned. (4) History of ITP Current Visit: Yes Status: Acute Base Code: Z86.2 - PRSNL HISTORY OF DIS OF THE BLD/BLD-FORM ORG/IMMUN MECHNSM Comment: 01/16/19: - Resume Prednisone 2.5 mg, Danocrine 200mg QD, and Promacta 75mg daily. (5) Systolic and diastolic CHF, chronic Current Visit: Yes Status: Chronic Base Code: I50.42 - CHRONIC COMBINED SYSTOLIC AND DIASTOLIC HRT FAIL Comment: 01/16/19: - Reported EF 45-50% - On Metoprolol 12.5mg daily, Lasix 40mg daily. (6) CAD (coronary artery disease) Current Visit: Yes Status: Acute Base Code: I25.10 - ATHSCL HEART DISEASE OF [place] CORONARY ARTERY W/O ANG PCTRS Comment: 01/16/19: - Hx of NSTEMI - Continue with BB, Nitrostat. Not on statin or ASA. (7) Hypothyroidism Current Visit: Yes Status: Chronic Base Code: E03.9 - HYPOTHYROIDISM, UNSPECIFIED Comment: 01/16/19: - Resume Levothyroxine 50mcg daily. 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 - Warfarin held 2/2 hematoma formation. - Ordered PT/INR, resuming Warfarin 30mg daily. (9) Anticoagulated Current Visit: Yes Status: Acute Base Code: Z79.01 - AEROLOGIST (CURRENT) USE OF ANTICOAGULANTS Comment: 01/16/19: - Resume Warfarin 3mg. - PT/INR ordered. (10) Depression Current Visit: Yes Status: Chronic Base Code: F32.9 - MAJOR DEPRESSIVE DISORDER, SINGLE EPISODE, UNSPECIFIED Comment: 01/16/19: - Resume Zoloft 50mg daily. (11) Chronic anemia Current Visit: Yes Status: Acute Base Code: D64.9 - ANEMIA, UNSPECIFIED Comment: 01/16/19: - Hx of Autoimmune hemolytic anemia. - Labs from [facility] 01/14: Hgb 8, MCV 84, Plts 150. (12) DNR (do not resuscitate) Current Visit: No Status: Acute Base Code: Z66 - DO NOT RESUSCITATE Comment: 01/16/19: - Discussed code status with the patient and her son.
[2019-01-16] MEDS: WARFARIN 1 MG TABLET PO SCH (18:06)
[2019-01-17] MEDS: HYDROCODONE/APAP 7.5/325MG TABLET PO PRN ×3 (05:18→20:19)
[2019-01-17] MEDS: LEVOTHYROXINE SODIUM 50 MCG TABLET PO SCH ×2 (05:19→06:00)
[2019-01-17] MEDS: PREDNISONE 1 MG TABLET PO SCH (07:50)
[2019-01-17] MEDS: SERTRALINE HCL 50 MG TABLET PO SCH (09:31)
[2019-01-17] MEDS: CYANOCOBALAMIN (VITAMIN B-12) 100 MCG TABLET PO SCH (09:31)
[2019-01-17] MEDS: POTASSIUM CHLORIDE 10 MEQ TAB PO SCH (09:31)
[2019-01-17] MEDS: POLYETHYLENE GLY 17 GM PACKET PO SCH (09:31)
[2019-01-17] MEDS: METOPROLOL SUCC 25 MG TAB.ER PO SCH (09:32)
[2019-01-17] MEDS: FUROSEMIDE 40 MG TABLET PO SCH (09:32)
[2019-01-17] MEDS: FOLIC ACID 1 MG TABLET PO SCH (09:32)
[2019-01-17] MEDS: DANAZOL 200 MG MC SCH (09:35)
[2019-01-17] MEDS: PROMACTA 75 MG MC SCH (09:36)
[2019-01-17] MEDS: WARFARIN 1 MG TABLET PO SCH (16:35)
[2019-01-18] MEDS: HYDROCODONE/APAP 7.5/325MG TABLET PO PRN ×3 (00:21→12:47)
[2019-01-18] MEDS: LEVOTHYROXINE SODIUM 50 MCG TABLET PO SCH (06:13)
[2019-01-18] MEDS: PREDNISONE 1 MG TABLET PO SCH (09:01)
[2019-01-18] MEDS: CYANOCOBALAMIN (VITAMIN B-12) 100 MCG TABLET PO SCH (10:30)
[2019-01-18] MEDS: METOPROLOL SUCC 25 MG TAB.ER PO SCH (10:32)
[2019-01-18] MEDS: FOLIC ACID 1 MG TABLET PO SCH (10:33)
[2019-01-18] MEDS: POLYETHYLENE GLY 17 GM PACKET PO SCH (10:33)
[2019-01-18] MEDS: POTASSIUM CHLORIDE 10 MEQ TAB PO SCH (10:33)
[2019-01-18] MEDS: FUROSEMIDE 40 MG TABLET PO SCH (10:33)
[2019-01-18] MEDS: SERTRALINE HCL 50 MG TABLET PO SCH (10:33)
[2019-01-18] MEDS: DANAZOL 200 MG MC SCH (10:34)
[2019-01-18] MEDS: PROMACTA 75 MG MC SCH (10:35)
--- NOTE | 2019-01-18 11:33 | Rehab Evaluation ---
Patient Information - Patient Information Diagnosis: Deconditioning, R hip hematoma s/p R RETA dislocation/reduction Ordered Treatment: PT Evaluate and Treat Status: Initial Evaluation Surgery: Yes (R RETA 09/2018) History: Detail (Pt lives at [facility], apparently had a fall resulting in RETA dislocation that was reduced in the ED at [facility]. She was admitted for short term rehabilitation.) Past Medical/Surgical Hx: PAST MEDICAL/SURGICAL HISTORY Past Surgical History hyesterectomy tonsils PMH - Respiratory Hx Respiratory Disorders Yes Hx Chronic Obstructive Yes Pulmonary Disease (COPD) PMH - Cardiovascular Hx Cardiovascular Disorders Yes Hx Heart Attack Yes PMH - Neuro Hx Neurological Disorders Yes Hx Cerebrovascular Accident Yes PMH - GI Hx Gastrointestinal Disorders No PMH - Hx Genitourinary Disorders No PMH - Endocrine Hx Endocrine Disorders No PMH - Musculoskeletal Hx Musculoskeletal Disorders No PMH - Psych Hx Psychiatric Problems No PMH - Hematology/Oncology Hx Hematology/Oncology No Disorders Premorbid Status: Detail (Pt lives at [facility]; she states she was not walking since her surgery, but was walking with a walker prior to surgery. It was not clear if she required assist for self-care activities.) Precautions: [place], Fall, Other (RETA precautions for posterior surgical approach; to wear knee immobilizer when up and hip abduction pillow in bed.) - Time With Patient Total Time Spent With Patient (Min): 35 Treatment Procedures: Detail (PT Evaluation) Subjective Information - Subjective Information Per Patient (Pt reported pain in R hip and lateral thigh at rest; unable to rate on pain scale.) Objective Data - Pain Pain Present: Yes - Mental Status Patient Orientation: Person, Place - Visual Perception Appears within normal limits for therapeutic activities - ROM Not within normal limits (Seated in recliner and in wheelchair, R hip is flexed to about 80 degrees; maintains R LE adducted and somewhat internally rotated despite knee immobilizer. R ankle ROM is WNL. L LE AROM is grossly WNL at the hip, knee and ankle.), Other - Strength/Tone Not within normal limits (4/5 strength in L hip flexion and extension, R hip extension. 3-/5 L hip adduction and abduction, R hip flexion, abduction, adduction; 3/5 B ankle dorsiflexion, plantarflexion.) - Coordination Appears within normal limits for therapeutic activities - Bed Mobility Needs Assist (Not assessed at this time, as pt was up in recliner upon arrival.) - Transfers Needs Assist (Required minimal assist of 2 to stand initially to pull pants up, sat with poor control after weight obtained on standing scale, requiring minimal assist to control descent. Required minimal assistance of 1 to stand to front wheeled walker from wheelchair.) - Balance Balance Sitting: Good Balance Standing: Fair, Poor (Pt tended to lean backward somewhat with pulling pants up and with initial standing at walker.) - Sensation Intact - Gait Detail (Ambulated from recliner to standing scale w/minimal assist of 1, VCs to ascend/descend scale. Ambulated from room to hallway to [facility] station, about 25 feet, with CGA/min assist. Transported back to room in wheelchair.) Therapy Assessment - Therapy Assessment Detail (Pt exhibits general weakness and specific weakness of R LE consistent with her post surgical condition and subsequent dislocation/reduction. She is a good candidate for physical therapy.) Patient Education - Patient Education Teaching Topic: Equipment Use Response: Reinforcement Needed Teaching Method: Discussion Teaching Recipient: Patient Barriers To Learning: Age Related Problem List - Problem List Physical Therapy Problem List: Detail (1. Requires assist w/bed mobility and transfers. 2. Difficulty walking. 3. Weakness in R hip. 4. History of falls.) Goals - Goals Physical Therapy Goals: 1. Pt will be independent with bed mobility. 2. Pt will be independent with transfers. 3. Pt will safely ambulate with front wheeled walker over household distances/surfaces with supervision. 4. Pt will exhibit 4/5 strength in proximal R LE and weak LE muscles for greater stability w/ambulation. Prognosis - Prognosis Good Plan - Plan Physical Therapy Plan: Patient will be seen 1-2x/daily M-F for bed mobility and transfer traing, gait training, LE strengthening and endurance training, balance training.
--- NOTE | 2019-01-18 12:02 | Rehab Evaluation ---
Patient Information - Patient Information Diagnosis: Deconditioning D/T R hip hematoma, s/p R RETA dislocation/reduction Ordered Treatment: OT Evaluate and Treat Status: Initial Evaluation Surgery: Yes (R RETA 09/2018) History: Detail (Pt lives at [facility], apparently had a fall resulting in RETA dislocation that was reduced in the ED at [facility]. She was admitted for short term rehabilitation.) Past Medical/Surgical Hx: PAST MEDICAL/SURGICAL HISTORY Past Surgical History hyesterectomy tonsils PMH - Respiratory Hx Respiratory Disorders Yes Hx Chronic Obstructive Yes Pulmonary Disease (COPD) PMH - Cardiovascular Hx Cardiovascular Disorders Yes Hx Heart Attack Yes PMH - Neuro Hx Neurological Disorders Yes Hx Cerebrovascular Accident Yes PMH - GI Hx Gastrointestinal Disorders No PMH - Hx Genitourinary Disorders No PMH - Endocrine Hx Endocrine Disorders No PMH - Musculoskeletal Hx Musculoskeletal Disorders No PMH - Psych Hx Psychiatric Problems No PMH - Hematology/Oncology Hx Hematology/Oncology No Disorders Premorbid Status: Detail (Pt lives at [facility]; she states she was not walking since her surgery, but was walking with a walker prior to surgery. Pt reports staff at [facility] assist with all self cares including showering and dressing.) Precautions: Mary D, Fall, Other (RETA precautions for posterior surgical approach; to wear knee immobilizer when up and hip abduction pillow in bed; WBAT right LE) - Time With Patient Total Time Spent With Patient (Min): 50 Treatment Procedures: Detail (OT eval low complexity) Subjective Information - Subjective Information Per Patient Objective Data - Pain Pain Present: Yes (Pt reports pain at 2-3/10 during rest and 10/10 with mobility) - Mental Status Patient Orientation: Person (Pt oriented to self, birthday. States location as [facility]. She was not oriented to month, year, age or reason for hospitalization. She required repeated verbal cues throughout the evaluation although this may have been due to impaired hearing.), Place - Visual Perception Deficit (Pt wears glasses and reports she was scheduled to have cataract surgery prior to fall.) - ROM Within normal limits (Juan R UE AROM WNL) - Strength/Tone Not within normal limits (Juan R UE strength 4/5 throughout) - Coordination Appears within normal limits for therapeutic activities (Coordination appears WNL per observation with self cares.) - Bed Mobility Needs Assist (Pt requires min assist to move legs to EOB and mod-hand held assist to pull self to sitting at EOB.) - Transfers Needs Assist (Min assist x 1-2 for sit to stand from EOB, chair and wheelchair heights. Pt c/o significant increase in pain with transfers.) - Balance Balance Sitting: Fair Balance Standing: Fair - Sensation Intact - Gait Detail (Pt able to ambulate several feet with 2 wheeled walker and min assist x 1.) - ADL's/IADL's Detail (Pt able to complete washing face, brushing hair and oral hygiene with set up and min assist. Pt was able to don shirt with mod assist and pants with total assist to start over feet as well as mod assist to stand and pull pants over hips.) Therapy Assessment - Therapy Assessment Detail (Pt requires significant assist with self cares and functional mobility due to increased pain and decreased endurance.) Problem List - Problem List Physical Therapy Problem List: Detail (1. Requires assist w/bed mobility and transfers. 2. Difficulty walking. 3. Weakness in R hip. 4. History of falls.) Occupational Therapy Problem List: Detail (1. Decreased Ind with total body dressing. 2. Decreased Ind with grooming/hygiene tasks. 3. Decreased Ind with showering. 4. Decreased endurance needed for safe and Ind mobility and self cares.) Goals - Goals Physical Therapy Goals: 1. Pt will be independent with bed mobility. 2. Pt will be independent with transfers. 3. Pt will safely ambulate with front wheeled walker over household distances/surfaces with supervision. 4. Pt will exhibit 4/5 strength in proximal R LE and weak LE muscles for greater stability w/ambulation. Occupational Therapy Goals: 1. Pt will be Ind with total body dressing using adaptive equipment while maintaining total hip precautions. 2. Pt will be Ind with grooming/hygiene tasks. 3. Pt will be Ind with showering in sitting. 4. Pt will demonstrate improved overall endurance needed for safe and Ind ADLs and functional mobility. Prognosis - Prognosis Good Plan - Plan Physical Therapy Plan: Patient will be seen 1-2x/daily M-F for bed mobility and transfer traing, gait training, LE strengthening and endurance training, balance training. Occupational Therapy Plan: OT 2-4 times per week to address goals and problem list as above.
[2019-01-18] MEDS: WARFARIN 1 MG TABLET PO SCH (16:54)
[2019-01-18 20:00] LABS: URINE APPEARANCE CLOUDY; URINE BILIRUBIN NEGATIVE (NEGATIVE); URINE BLOOD SMALL (NEGATIVE); URINE COLOR YELLOW; URINE GLUCOSE (UA) NEGATIVE (NEGATIVE); URINE KETONE NEGATIVE (NEGATIVE); URINE LEUKOCYTE ESTERASE LARGE (NEGATIVE); URINE NITRITE POSITIVE (NEGATIVE); URINE PROTEIN TRACE (NEGATIVE); URINE UROBILINOGEN 0.2 E.U./dL (0.20 - 1.00)
[2019-01-18 20:05] LABS: URINE BACTERIA 2+; URINE RBC 0 - 2 (NONE SEEN)
[2019-01-18] MEDS: CIPROFLOXACIN HCL 500 MG TABLET PO SCH (20:57)
[2019-01-18] MEDS ORDERED: GUAIFENESIN/D-METH. 10 ML UDC PO PRN (21:48)
[2019-01-19] MEDS: LEVOTHYROXINE SODIUM 50 MCG TABLET PO SCH (06:13)
[2019-01-19 06:58] LABS: ABSOLUTE NEUTROPHIL COUNT 11.96; HEMATOCRIT 27.7 % (35.0-47.0); HEMOGLOBIN 7.8 gm/dl (11.6-16.0); MEAN CELL VOLUME 91.4 fl (81-97); MEAN CORPUSCULAR HEMOGLOBIN 25.7 pg (27-33); MEAN CORPUSCULAR HGB CONC 28.2 g/dl (32-36); PLATELET COUNT 163 K/uL (130-400); RED BLOOD COUNT 3.03 M/uL (3.80-5.40); RED CELL DISTRIBUTION WIDTH 20.1 % (11.5-14.5); WHITE BLOOD COUNT W/O DIFF 17.8 K/uL (4.2-12.2)
[2019-01-19 07:18] LABS: CREATININE 1.2 mg/dL (0.5-0.9)
--- NOTE | 2019-01-19 08:10 | Occupational Therapy Tx Note ---
Occupational Therapy Tx Note - Treatment Note Tolerated: Good Total Time Spent With Patient: 35 (ADL) Occupational Therapy Treatment Note: Detail (S: Pt awake but confused about what day it is and where she is. O: Pt reoriented to place, date and reason for hospitalization. Pt able to complete supine to sit with verbal encouragement. Pt doffed hospital gown with min assist and donned button down shirt with verbal cues/encouragement. Pt educated re:total hip precautions but will require ongoing education. She was unable to use diesel instructor or dressing stick to don pants even with physical cues. Pants donned over right foot/lower leg with max assist and pt then able to don left pant leg with verbal cues. Sit to stand from EOB with min assist to walker. Pt able to pull pants over hips with min assist to maintain balance and with verbal cues for technique with walker. Pt amb 5 feet to recliner with 2 wheeled walker and min assist and completed stand to sit with verbal cues. Pt brushed hair Indly. Pt was positioned with pillow between legs and she was educated again re: hip precautions as she did not like pillow between knees. Pt repeatedly ask the date and was reoriented. Provided pt with large print date and location which was left on bedside table. Pt left up in recliner. A: Pt continues to be very confused, improved mobility and participation today.) Occupational Therapy Problem List: Detail (1. Decreased Ind with total body dressing. 2. Decreased Ind with grooming/hygiene tasks. 3. Decreased Ind with showering. 4. Decreased endurance needed for safe and Ind mobility and self cares.) Occupational Therapy Goals: 1. Pt will be Ind with total body dressing using adaptive equipment while maintaining total hip precautions. 2. Pt will be Ind with grooming/hygiene tasks. 3. Pt will be Ind with showering in sitting. 4. Pt will demonstrate improved overall endurance needed for safe and Ind ADLs and functional mobility. Prognosis: Good Occupational Therapy Plan: OT 2-4 times per week to address goals and problem list as above.
[2019-01-19 08:29] LABS: HYPOCHROMIA 2+
[2019-01-19] MEDS: PREDNISONE 1 MG TABLET PO SCH (08:58)
[2019-01-19] MEDS: POLYETHYLENE GLY 17 GM PACKET PO SCH (08:59)
[2019-01-19] MEDS: FUROSEMIDE 40 MG TABLET PO SCH (09:00)
[2019-01-19] MEDS: METOPROLOL SUCC 25 MG TAB.ER PO SCH (09:00)
[2019-01-19] MEDS: SERTRALINE HCL 50 MG TABLET PO SCH (09:00)
[2019-01-19] MEDS: CIPROFLOXACIN HCL 500 MG TABLET PO SCH ×2 (09:01→20:45)
[2019-01-19] MEDS: DANAZOL 200 MG MC SCH (09:02)
[2019-01-19] MEDS: CYANOCOBALAMIN (VITAMIN B-12) 100 MCG TABLET PO SCH (09:02)
[2019-01-19] MEDS: POTASSIUM CHLORIDE 10 MEQ TAB PO SCH (09:03)
[2019-01-19] MEDS: PROMACTA 75 MG MC SCH (09:03)
[2019-01-19] MEDS: FOLIC ACID 1 MG TABLET PO SCH (09:05)
--- NOTE | 2019-01-19 13:40 | Physical Therapy Tx Note ---
Physical Therapy Tx Note - Treatment Note Tolerated: Fair (Patient c/o R hip pain with WB but states pain was decreased u frank sitting. Patient has difficulty with verbal commands secondary to diminished hearing.) Total Time Spent With Patient: 30 Physical Therapy Tx Note: Detail (Patient required Ax2 to get sitting at edge of bed, Mod Ax2 for sit to stand WB as tad to wheeled walker. Patient amb with wheeled walker Min/Mod Ax1, 2x15 feet then patient wheeled herself back to room x approx. 30 feet with some A to get thru doorway. Patient use the bathroom with A of nursing and amb to hip chair x10 feet and was left sitting in hip chair with chair alarm in place.) Physical Therapy Problem List: Detail (1. Requires assist w/bed mobility and transfers. 2. Difficulty walking. 3. Weakness in R hip. 4. History of falls.) Physical Therapy Goals: 1. Pt will be independent with bed mobility. 2. Pt will be independent with transfers. 3. Pt will safely ambulate with front wheeled walker over household distances/surfaces with supervision. 4. Pt will exhibit 4/5 strength in proximal R LE and weak LE muscles for greater stability w/ambulation. Prognosis: Moderate (Patient has low tolerance to exercise secondary to pain. Patient not eating well either which may decrease her endurance and drive.) Physical Therapy Plan: Patient will be seen 1-2x/daily M-F for bed mobility and transfer traing, gait training, LE strengthening and endurance training, balance training.
[2019-01-19] MEDS: WARFARIN 1 MG TABLET PO SCH (16:59)
[2019-01-19] MEDS: HYDROCODONE/APAP 7.5/325MG TABLET PO PRN (20:46)
[2019-01-20] MEDS: HYDROCODONE/APAP 7.5/325MG TABLET PO PRN (03:41)
[2019-01-20] MEDS: LEVOTHYROXINE SODIUM 50 MCG TABLET PO SCH (06:46)
[2019-01-20 08:49] LABS: INR 4.8
[2019-01-20 08:54] LABS: PROTHROMBIN TIME (PATIENT) 46.2 SECONDS (9.5-12.1)
[2019-01-20] MEDS: PREDNISONE 1 MG TABLET PO SCH (09:00)
[2019-01-20] MEDS: POLYETHYLENE GLY 17 GM PACKET PO SCH (09:03)
[2019-01-20] MEDS: SERTRALINE HCL 50 MG TABLET PO SCH (09:05)
[2019-01-20] MEDS: FUROSEMIDE 40 MG TABLET PO SCH (09:05)
[2019-01-20] MEDS: POTASSIUM CHLORIDE 10 MEQ TAB PO SCH (09:06)
[2019-01-20] MEDS: METOPROLOL SUCC 25 MG TAB.ER PO SCH (09:06)
[2019-01-20] MEDS: CYANOCOBALAMIN (VITAMIN B-12) 100 MCG TABLET PO SCH (09:06)
[2019-01-20] MEDS: FOLIC ACID 1 MG TABLET PO SCH (09:06)
[2019-01-20] MEDS: CIPROFLOXACIN HCL 500 MG TABLET PO SCH ×2 (09:09→21:24)
[2019-01-20] MEDS: DANAZOL 200 MG MC SCH (09:09)
[2019-01-20] MEDS: PROMACTA 75 MG MC SCH (09:10)
[2019-01-20] MEDS ORDERED: POLYVINYL ALCOHOL OPTH OPTH PRN (10:32)
--- NOTE | 2019-01-20 11:53 | Physical Therapy Tx Note ---
Physical Therapy Tx Note - Treatment Note Tolerated: Fair Total Time Spent With Patient: 30 Physical Therapy Tx Note: Detail (Patient was sleeping in chair reclined upon MULTIPLE SCLEROSIS NURSE arrival. Patient states right LE painful today. Patient transferred sit to and from stand min x1. Patient ambulated 10 feet with wheeled walker CGA x1. Patient transferred sit to and from stand mod assist x1. Patient ambulated 10 feet with wheeled walker CGA x1. Patient transferred sit to and from stand mod assist x1. Patient performed the following exercises reclined in chair x5-10 reps each: ankle pumps, left SAQ, left isometric hamstring sets, glut squeezes, and abdominal isometrics. Patient reported increased complaints of right hip pain with scooting forward in chair, sit to and from stand transfers, and ambulation with walker. Patient started to fall asleep in chair while p erforming exercises, required verbal cueing to continue. Patient reports feeling tired after treatment. Patient was left reclined in chair with call light within reach.) Physical Therapy Problem List: Detail (1. Requires assist w/bed mobility and transfers. 2. Difficulty walking. 3. Weakness in R hip. 4. History of falls.) Physical Therapy Goals: 1. Pt will be independent with bed mobility. 2. Pt will be independent with transfers. 3. Pt will safely ambulate with front wheeled walker over household distances/surfaces with supervision. 4. Pt will exhibit 4/5 strength in proximal R LE and weak LE muscles for greater stability w/ambulation. Prognosis: Good Physical Therapy Plan: Patient will be seen 1-2x/daily M-F for bed mobility and transfer traing, gait training, LE strengthening and endurance training, balance training.
--- NOTE | 2019-01-20 14:54 | Occupational Therapy Tx Note ---
Occupational Therapy Tx Note - Treatment Note Tolerated: Fair Total Time Spent With Patient: 30 (ther ex) Occupational Therapy Treatment Note: Detail (S: Pt finishing toileting with nursing. O: Pt seated in wheelchair and transported to rehab gym. Pt completed shruti UE strengthening/endurance activities using graded resistive clothespins and overhead reaching with right UE and she required min physical assist and mod verbal cues due to impaired vision and mild confusion. Attempted clothespins with left UE but pt reports she is too fatigued. Completed shruti UE yellow theraband exercises x 10 reps - scapular retraction, triceps and biceps with verbal cues for technique. Pt reports she is very fatigued. Transported back to room via wheelchair. Sit to stand from wheelchair to walker with min assist and took several steps to recliner with walker and min assist and verbal cues for technique. Pt left up in chair with alarm in place and call button in reach. A: Pt very fatigued, confusion continues) Occupational Therapy Problem List: Detail (1. Decreased Ind with total body dressing. 2. Decreased Ind with grooming/hygiene tasks. 3. Decreased Ind with showering. 4. Decreased endurance needed for safe and Ind mobility and self cares.) Occupational Therapy Goals: 1. Pt will be Ind with total body dressing using adaptive equipment while maintaining total hip precautions. 2. Pt will be Ind with grooming/hygiene tasks. 3. Pt will be Ind with showering in sitting. 4. Pt will demonstrate improved overall endurance needed for safe and Ind ADLs and functional mobility. Prognosis: Good Occupational Therapy Plan: OT 2-4 times per week to address goals and problem list as above.
--- NOTE | 2019-01-20 16:26 | Physician Progress Note ---
Subjective - Date Date of Progress Note: 01/20/19 - Admitting Diagnosis Diagnosis: deconditioning due to Rt hip hematoma - Subjective Nursing Care Plan Problem List Activity Intolerance (Swing Bed) Start: 01/15/19 19:16 Freq: Status: Active Protocol: Created 01/15/19 19:16 HMF (Rec: 01/15/19 19:16 HMF ASTS-1) Altered Thought Process (Fall Risk) Start: 01/15/19 19:16 Freq: Status: Active Protocol: Created 01/15/19 19:16 HMF (Rec: 01/15/19 19:16 HMF ASTS-1) Impaired Mobility (Fall Risk) Start: 01/15/19 19:16 Freq: Status: Active Protocol: Created 01/15/19 19:16 HMF (Rec: 01/15/19 19:16 HMF ASTS-1) Knowledge Deficit (Swing Bed) Start: 01/15/19 19:16 Freq: Status: Active Protocol: Created 01/15/19 19:16 HMF (Rec: 01/15/19 19:16 HMF ASTS-1) Pain (Swing Bed) Start: 01/15/19 19:16 Freq: Status: Active Protocol: Created 01/15/19 19:16 HMF (Rec: 01/15/19 19:16 HMF ASTS-1) Risk for Injury (Fall Risk) Start: 01/15/19 19:16 Freq: Status: Active Protocol: Created 01/15/19 19:16 HMF (Rec: 01/15/19 19:16 HMF ASTS-1) General - Cognitive Patterns Speech: Normal Thought Process: Intact Thought Content: Normal - Communication Select best description of speech pattern: Clear Speech Ability to express ideas and wants: Understood Understanding verbal content: Understands - Mood and Behavior Patterns Appearance: Well Groomed Mood: Normal Attitude: Cooperative Motor Activity: Calm Affect: Appropriate Hallucinations: Denies - Physical Functioning Activity Level: Up with assist x2 Turning: With partial assist ROM Ability: Moves all extremities Assistive Devices: Walker Ambulation Ability: Needs Assist Bed Mobility: Needs Assist Transfer Ability: Needs Assist Bathing Ability: Needs Assist Personal Hygiene: Needs Assist Dressing Ability: Needs Assist Eating (Feeding) Ability: Independent Toileting Ability: Needs Assist Administer Own Medication: Needs Assist - Continence Bowel Pattern: Normal for Patient Bladder Pattern: Normal, Incontinent Urinary Incontinence: Unconscious Meds/Allergies - Allergies Allergies Allergy/AdvReac Type Severity Reaction Status Date / Time No Known Drug Allergies Allergy Verified 12/13/18 03:59 - Active Medications Current Medications Acetaminophen (Tylenol 500mg Tab) 500 mg PO Q6H PRN PRN Reason: PAIN/HEADACHE/TEMP>100.5 Hydrocodone Bitart/Acetaminophen ([place] 7.5mg/325mg) 1 each PO Q6H PRN PRN Reason: PAIN - MILD (1-4) Last Admin: 01/20/19 03:41 Dose: 1 each Documented by: Artificial Tears (Akwa Tears) 1 drop OPTH QID PRN PRN Reason: DRY EYE Last Admin: 01/20/19 15:42 Dose: 1 drop Documented by: Ciprofloxacin (Cipro) 500 mg PO 0900,2100 [facility] Last Admin: 01/20/19 09:09 Dose: 500 mg Documented by: Cyanocobalamin (Vitamin B-12) 500 mcg PO DAILY [facility] Last Admin: 01/20/19 09:06 Dose: 500 mcg Documented by: Folic Acid () 1 mg PO DAILY [facility] Last Admin: 01/20/19 09:06 Dose: 1 mg Documented by: Furosemide (Lasix) 40 mg PO DAILY [facility] Last Admin: 01/20/19 09:05 Dose: 40 mg Documented by: Guaifenesin (Robitussin Dm) 10 ml PO Q6H PRN PRN Reason: COUGH Last Admin: 01/18/19 21:52 Dose: 10 ml Documented by: [facility]othyroxine [facility]) [facility] Last Admin: 01/20/19 06:46 Dose: 50 mcg Documented by: Metoprolol Succinate (Toprol Xl) 12.5 mg PO DAILY [facility] Last Admin: 01/20/19 09:06 Dose: 12.5 mg Documented by: Patient Own Med: (Promacta 75mg) 1 each MC DAILY [facility] Last Admin: 01/20/19 09:10 Dose: 1 each Documented by: Patient Own Med: (Danazol 200mg) 1 each MC DAILY [facility] Last Admin: 01/20/19 09:09 Dose: 1 each Documented by: Polyethylene Glycol (Miralax) 17 gm PO DAILY [facility] Last Admin: 01/20/19 09:03 Dose: 17 gm Documented by: Potassium Chloride (Klor-Con) 10 meq PO DAILY [facility] Last Admin: 01/20/19 09:06 Dose: 10 meq Documented by: Prednisone (Prednisone 1mg) 2.5 mg PO DAILYWM [facility] Last Admin: 01/20/19 09:00 Dose: 2.5 mg Documented by: Sertraline HCl (Zoloft) 50 mg PO DAILY [facility] Last Admin: 01/20/19 09:05 Dose: 50 mg Documented by: Warfarin Sodium (Coumadin) 2 mg PO [id number] [facility] Objective - Vital Signs Vital Signs: Vital Signs - Last 24 Hrs Temp Pulse Resp BP Pulse Ox 01/20/19 07:53 97.7 F 97 H 18 119/63 95 01/19/19 20:00 98.1 F 80 20 108/61 95 - General General Appearance: Alert, Cooperative, No acute distress Limitations: Physical limitation - Head Head exam: Atraumatic, Normocephalic - Eye Eye exam: Normal appearance, PERRL - ENT ENT exam: Normal exam, Mucous membranes moist Ear exam: Normal external inspection Nasal Exam: Normal inspection - Respiratory Respiratory exam: Normal lung sounds bilaterally - Cardiovascular Cardiovascular Exam: Normal heart sounds, Irregular rhythm Peripheral Pulses: 3+: Radial (R), Radial (L), Dorsalis Pedis (R), Dorsalis Pedis (L) - GI/Abdominal GI/Abdominal exam: Soft, Normal bowel sounds - Rectal Rectal exam: Deferred - exam: Deferred - Extremities Extremities exam: Tenderness (right hip), Other (right hip/trochanter mildly tender to touch, no significant erythema ). negative: Normal inspection (postsurgical scar of right hip, right knee immobilzer. ) - Neurological Neurological exam: negative: Abnormal gait - Skin Skin exam: Erythema (mild of right hip), Other (ecchymosis of bilateral right up per ext) H&P Results - Labs Result Diagrams: 01/19/19 06:10 01/19/19 06:10 Labs Last 24 Hours: Laboratory Results - last 24 hr 01/20/19 08:31 PT 46.2 H* INR 4.8 Discharge Potential - Discharge Needs Community Services Used Prior to Admission: Home Health Nurse, Occupational Therapy, Physical Therapy Patient Discharge Plan Description: Return Home, AFC/Assisted Living Community Services Needed at Discharge: Home Health Nurse, Occupational Therapy, Physical Therapy Discharge Needs Comment: Current with [facility] for in home services Plan - Swing Bed Certification Initial Certification Due: 01/16/19 14 Day Re-Cert Due: 01/30/19 44 Day Re-Cert Due: 03/01/19 74 Day Re-Cert Due: 03/31/19 - Detailed Diagnosis and Plan (1) Physical deconditioning Current Visit: Yes Status: Acute Base Code: R53.81 - OTHER MALAISE Comment: 01/20/19: - 2/2 to right hip pain from recent total hip replacement with complication of dislocation and hematoma. - Difficulty with transfering from wheelchair and is an assist with ambulation. - PT/OT evaluation on FridayJanuary 18. (2) Anticoagulated Current Visit: Yes Status: Acute Base Code: Z79.01 - USP (CURRENT) USE OF ANTICOAGULANTS Comment: 01/20/19 -pharmacy managing INR -INR 4.5, holding for 2 days and then decreased dosing -continue to monitor PT/INR 01/16/19: - Resume Warfarin 3mg. - PT/INR ordered. (3) CAD (coronary artery disease) Current Visit: Yes Status: Acute Base Code: I25.10 - ATHSCL HEART DISEASE OF [place] CORONARY ARTERY W/O ANG PCTRS Comment: 01/20/19: - Hx of NSTEMI - Continue with BB, Nitrostat. Not on statin or ASA. (4) Chronic anemia Current Visit: Yes Status: Acute Base Code: D64.9 - ANEMIA, UNSPECIFIED Comment: 01/20/19: - Hx of Autoimmune hemolytic anemia. - Labs from [facility] 01/14: Hgb 8, MCV 84, Plts 150. -pt has lab orders from [facility] Hemoc to be completed before next OV (5) Hematoma of right hip Current Visit: Yes Status: Acute Base Code: S70.01XA - CONTUSION OF RIGHT HIP, INITIAL ENCOUNTER Comment: 01/20/19: -elevated PT/INR, holding coumadin for 2 days, pharmacy adjusting - Resolving. - PT/INR at [facility] 01/14: 15/1.6, - Resuming Warfarin dose of 3mg QD. - Repeat PT/INR today. (6) History of ITP Current Visit: Yes Status: Acute Base Code: Z86.2 - PRSNL HISTORY OF DIS OF THE BLD/BLD-FORM ORG/IMMUN MECHNSM Comment: 01/20/19: - Resume Prednisone 2.5 mg, Danocrine 200mg QD, and Promacta 75mg daily. (7) Status post right hip replacement Current Visit: Yes Status: Acute Base Code: Z96.641 - PRESENCE OF RIGHT ARTIFICIAL HIP JOINT Comment: 01/20/19: - Total hip replacement 09/2018 w/ complication of dislocation and most recently hematoma. - [place] 7.5mg/325mg Q6H prn, Tylenol 500mg Q6H prn. - Follow up with Orthopedic surgery as planned. (8) Depression Current Visit: Yes Status: Chronic Base Code: F32.9 - MAJOR DEPRESSIVE DISORDER, SINGLE EPISODE, UNSPECIFIED Comment: 01/20/19: - Resume Zoloft 50mg daily. (9) Hypothyroidism Current Visit: Yes Status: Chronic Base Code: E03.9 - HYPOTHYROIDISM, UNSPECIFIED Comment: 01/20/19: - Resume Levothyroxine 50mcg daily. 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 (11) UTI (urinary tract infection) Current Visit: Yes Status: Acute Base Code: N39.0 - URINARY TRACT INFECTION, SITE NOT SPECIFIED Comment: 01/20/19 -UA positive, Cipro 500mg PO BID started several days ago -mentation improved with tx -INR elevated with tx, phamacy dosing adjustments (12) DNR (do not resuscitate) Current Visit: No Status: Acute Base Code: Z66 - DO NOT RESUSCITATE Comment: 01/20/19 -maintain DNR status 01/16/19: - Discussed code status with the patient and her son.
[2019-01-21] MEDS: HYDROCODONE/APAP 7.5/325MG TABLET PO PRN ×3 (03:23→17:57)
[2019-01-21] MEDS ORDERED: ZINC OXIDE 28.35 GM TUBE TOP ONE (03:25)
[2019-01-21] MEDS ORDERED: ZINC OXIDE 28.35 GM TUBE TOP PRN (03:27)
[2019-01-21] MEDS: LEVOTHYROXINE SODIUM 50 MCG TABLET PO SCH (06:06)
[2019-01-21] MEDS: PREDNISONE 1 MG TABLET PO SCH (09:12)
[2019-01-21] MEDS: CIPROFLOXACIN HCL 500 MG TABLET PO SCH ×2 (09:12→21:20)
[2019-01-21] MEDS: CYANOCOBALAMIN (VITAMIN B-12) 100 MCG TABLET PO SCH (09:34)
[2019-01-21] MEDS: POTASSIUM CHLORIDE 10 MEQ TAB PO SCH (09:35)
[2019-01-21] MEDS: FOLIC ACID 1 MG TABLET PO SCH (09:35)
[2019-01-21] MEDS: FUROSEMIDE 40 MG TABLET PO SCH (09:35)
[2019-01-21] MEDS: SERTRALINE HCL 50 MG TABLET PO SCH (09:35)
[2019-01-21] MEDS: METOPROLOL SUCC 25 MG TAB.ER PO SCH (09:36)
[2019-01-21] MEDS: POLYETHYLENE GLY 17 GM PACKET PO SCH (09:37)
[2019-01-21] MEDS: DANAZOL 200 MG MC SCH (09:40)
[2019-01-21] MEDS: PROMACTA 75 MG MC SCH (09:40)
--- NOTE | 2019-01-21 11:41 | Physical Therapy Tx Note ---
Physical Therapy Tx Note - Treatment Note Tolerated: Good Total Time Spent With Patient: 20 Physical Therapy Tx Note: Detail (Patient was reclined in chair upon WATER OPERATOR arrival. Patient states no complaints of right hip pain at rest. Patient transferred sit to and from stand min assist x1. Patient ambulated 23 feet with wheeled walker CGA x1. Patient transferred sit to and from stand min assist x1. Patient ambulated 25 feet with wheeled walker CGA x1. Patient transferred sit to and from stand min assist x1. Patient ambulated 48 feet with wheeled walker CGA x1. Patient tolerated treatment well. Patient reports dizziness with ambulation and standing. Patient required several seated rest breaks with ambulation due to fatigue. Patient required some verbal cueing to keep walker close to body with ambulation. Patient declined exercises due to fatigue. Juhi ent was left reclined in chair with call light within reach.) Physical Therapy Problem List: Detail (1. Requires assist w/bed mobility and transfers. 2. Difficulty walking. 3. Weakness in R hip. 4. History of falls.) Physical Therapy Goals: 1. Pt will be independent with bed mobility. 2. Pt will be independent with transfers. 3. Pt will safely ambulate with front wheeled walker over household distances/surfaces with supervision. 4. Pt will exhibit 4/5 strength in proximal R LE and weak LE muscles for greater stability w/ambulation. Prognosis: Good Physical Therapy Plan: Patient will be seen 1-2x/daily M-F for bed mobility and transfer traing, gait training, LE strengthening and endurance training, balance training.
--- NOTE | 2019-01-21 13:49 | Physical Therapy Tx Note ---
Physical Therapy Tx Note - Treatment Note Tolerated: Good Total Time Spent With Patient: 20 Physical Therapy Tx Note: Detail (Patient was reclined in chair upon PHOTO OPTICS TECHNICIAN arrival. Patient states she's dizzy this afternoon. Patient declined ambulation due to dizziness. Patient performed the following exercises x10 reps in chair: ankle pumps, quad sets, glut squeezes, hip abduction ROM right, isometric hip abduction left, adductor squeezes, isometric hamstring sets left, SLR left x10, SLR right x5, shoulder flexion, shoulder abduction, bicep curls with yellow theraband, and tricep extension with yellow theraband. Patient required verbal cueing to rouse throughout exercises due to falling asleep. Patient declined further exercises due to fatigue. Patient was left reclined in chair with call light within reach.) Physical Therapy Problem List: Detail (1. Requires assist w/bed mobility and transfers. 2. Difficulty walking. 3. Weakness in R hip. 4. History of falls.) Physical Therapy Goals: 1. Pt will be independent with bed mobility. 2. Pt will be independent with transfers. 3. Pt will safely ambulate with front wheeled walker over household distances/surfaces with supervision. 4. Pt will exhibit 4/5 strength in proximal R LE and weak LE muscles for greater stability w/ambulation. Prognosis: Good Physical Therapy Plan: Patient will be seen 1-2x/daily M-F for bed mobility and transfer traing, gait training, LE strengthening and endurance training, balance training.
[2019-01-22] MEDS: HYDROCODONE/APAP 7.5/325MG TABLET PO PRN ×2 (01:03→06:28)
[2019-01-22] MEDS: LEVOTHYROXINE SODIUM 50 MCG TABLET PO SCH (06:28)
--- NOTE | 2019-01-22 08:13 | Occupational Therapy Tx Note ---
Occupational Therapy Tx Note - Treatment Note Tolerated: Fair Total Time Spent With Patient: 50 (ADL) Occupational Therapy Treatment Note: Detail (S: Pt in bed, sleepy but willing to begin OT. O: Supine to sit with verbal cues for technique and using bed rail. Sit to stand with min assist to walker and amb 15 feet to shower with walker and CG assist. Pt seated on shower bench with verbal cues to use grab bar. Pt doffed shirt and bra with verbal cues for modified technique (for bra). Pt sit to stand to walker and pulled briefs over hips with min-mod assist and doffed briefs over feet with dressing stick, verbal cues and min assist. Pt doffed left slipper sock Indly and right slipper sock with min assist using dressing stick. Pt completed partial body shower in sitting and standing with verbal cues for upper body and mod-max assist for lower body including standing for alicia area. Pt dried self with min assist for upper body and max assist for lower body. Pt donned bra with total assist to hook and mod assist for positioning, shirt with verbal cues, brace with total assist, pants with max assist, left slipper sock Ind, right slipper sock max assist. Pt amb to chair with walker and min assist. Pt brushed hair Indly. A: Pt requires significant assist with showering and dressing due to mild confusion, significant fatigue and also she has significant difficulty with vision which is impeding her ability to use adaptive equipment for total hip precautions.) Occupational Therapy Problem List: Detail (1. Decreased Ind with total body dressing. 2. Decreased Ind with grooming/hygiene tasks. 3. Decreased Ind wit h showering. 4. Decreased endurance needed for safe and Ind mobility and self cares.) Occupational Therapy Goals: 1. Pt will be Ind with total body dressing using adaptive equipment while maintaining total hip precautions. 2. Pt will be Ind with grooming/hygiene tasks. 3. Pt will be Ind with showering in sitting. 4. Pt will demonstrate improved overall endurance needed for safe and Ind ADLs and functional mobility. Prognosis: Moderate Occupational Therapy Plan: OT 2-4 times per week to address goals and problem list as above.
[2019-01-22] MEDS: PREDNISONE 1 MG TABLET PO SCH (09:18)
[2019-01-22] MEDS: CIPROFLOXACIN HCL 500 MG TABLET PO SCH ×2 (09:19→21:02)
[2019-01-22] MEDS: CYANOCOBALAMIN (VITAMIN B-12) 100 MCG TABLET PO SCH (09:19)
[2019-01-22] MEDS: METOPROLOL SUCC 25 MG TAB.ER PO SCH (09:20)
[2019-01-22] MEDS: FUROSEMIDE 40 MG TABLET PO SCH (09:20)
[2019-01-22] MEDS: POTASSIUM CHLORIDE 10 MEQ TAB PO SCH (09:20)
[2019-01-22] MEDS: SERTRALINE HCL 50 MG TABLET PO SCH (09:26)
[2019-01-22] MEDS: FOLIC ACID 1 MG TABLET PO SCH (09:27)
[2019-01-22] MEDS: DANAZOL 200 MG MC SCH (09:27)
[2019-01-22] MEDS: POLYETHYLENE GLY 17 GM PACKET PO SCH (09:27)
[2019-01-22] MEDS: PROMACTA 75 MG MC SCH (09:27)
[2019-01-22 09:34] LABS: INR 4.3
--- NOTE | 2019-01-22 14:07 | Physical Therapy Tx Note ---
Physical Therapy Tx Note - Treatment Note Tolerated: Fair Total Time Spent With Patient: 30 Physical Therapy Tx Note: Detail (The patient was up in chair when PT arrived and moaning. Patient complained of R hip pain. Patient refused pain meds when offered by RN, stating they didn't help. The patient was independent with sit to stand transfer from recliner. The patient ambulated with front wheeled walker 20 feet x 2 with CG for safety. The patient ambulated back to bed. The patient was independent with sit to supine. The patient scooted up in bed with minimal to moderate PA of 1. The patient completed the following LE exercies supine: ankle pumps, gluteal sets, quad sets, hip adductor squeezes, SAQ L LE and L SLRm x 10 reps. The patient's son arrived during PT session and was updated on the patient's progress. The patient was left in bed with son present. Will practice car transfer in patient's car on 01/25/19.) Physical Therapy Problem List: Detail (1. Requires assist w/bed mobility and transfers. 2. Difficulty walking. 3. Weakness in R hip. 4. History of falls.) Physical Therapy Goals: 1. Pt will be independent with bed mobility. 2. Pt will be independent with transfers. 3. Pt will safely ambulate with front wheeled walker over household distances/surfaces with supervision. 4. Pt will exhibit 4/5 strength in proximal R LE and weak LE muscles for greater stability w/ambulation. Physical Therapy Plan: Patient will be seen 1-2x/daily M-F for bed mobility and transfer traing, gait training, LE strengthening and endurance training, balance training.
[2019-01-22] MEDS ORDERED: WARFARIN 1 MG TABLET PO SCH (16:00)
[2019-01-22] MEDS: ACETAMINOPHEN 500 MG TABLET PO PRN (21:02)
[2019-01-23] MEDS: HYDROCODONE/APAP 7.5/325MG TABLET PO PRN ×2 (00:36→13:51)
[2019-01-23] MEDS: LEVOTHYROXINE SODIUM 50 MCG TABLET PO SCH (06:22)
[2019-01-23] MEDS: ACETAMINOPHEN 500 MG TABLET PO PRN ×2 (06:48→23:55)
[2019-01-23] MEDS ORDERED: TEMAZEPAM 15 MG CAPSULE PO PRN (09:51)
[2019-01-23] MEDS ORDERED: PREGABALIN 25 MG CAPSULE PO SCH (10:00)
[2019-01-23] MEDS: CYANOCOBALAMIN (VITAMIN B-12) 100 MCG TABLET PO SCH (10:04)
[2019-01-23] MEDS: FOLIC ACID 1 MG TABLET PO SCH (10:04)
[2019-01-23] MEDS: POTASSIUM CHLORIDE 10 MEQ TAB PO SCH (10:05)
[2019-01-23] MEDS: SERTRALINE HCL 50 MG TABLET PO SCH (10:05)
[2019-01-23] MEDS: METOPROLOL SUCC 25 MG TAB.ER PO SCH (10:05)
[2019-01-23] MEDS: PREDNISONE 1 MG TABLET PO SCH (10:06)
[2019-01-23] MEDS: PREGABALIN 25 MG CAPSULE PO SCH ×2 (10:06→21:22)
[2019-01-23] MEDS: FUROSEMIDE 40 MG TABLET PO SCH (10:07)
[2019-01-23] MEDS: CIPROFLOXACIN HCL 500 MG TABLET PO SCH ×2 (10:07→21:22)
[2019-01-23] MEDS: POLYETHYLENE GLY 17 GM PACKET PO SCH (10:11)
--- NOTE | 2019-01-23 10:33 | Physician Progress Note ---
Subjective - Date Date of Progress Note: 01/23/19 - Admitting Diagnosis Diagnosis: deconditioning due to Rt hip hematoma - Subjective Nursing Care Plan Problem List Activity Intolerance (Swing Bed) Start: 01/15/19 19:16 Freq: Status: Active Protocol: Created 01/15/19 19:16 HMF (Rec: 01/15/19 19:16 HMF ASTS-1) Altered Thought Process (Fall Risk) Start: 01/15/19 19:16 Freq: Status: Active Protocol: Created 01/15/19 19:16 HMF (Rec: 01/15/19 19:16 HMF ASTS-1) Impaired Mobility (Fall Risk) Start: 01/15/19 19:16 Freq: Status: Active Protocol: Created 01/15/19 19:16 HMF (Rec: 01/15/19 19:16 HMF ASTS-1) Impaired Skin Integrity Start: 01/22/19 01:57 Freq: Status: Active Protocol: Created 01/22/19 01:57 LMS (Rec: 01/22/19 01:57 LMS ASTS-1) Knowledge Deficit (Swing Bed) Start: 01/15/19 19:16 Freq: Status: Active Protocol: Created 01/15/19 19:16 HMF (Rec: 01/15/19 19:16 HMF ASTS-1) Pain (Swing Bed) Start: 01/15/19 19:16 Freq: Status: Active Protocol: Created 01/15/19 19:16 HMF (Rec: 01/15/19 19:16 HMF ASTS-1) Risk for Injury (Fall Risk) Start: 01/15/19 19:16 Freq: Status: Active Protocol: Created 01/15/19 19:16 HMF (Rec: 01/15/19 19:16 HMF ASTS-1) General - Cognitive Patterns Speech: Normal Thought Process: Intact Thought Content: Normal - Communication Select best description of speech pattern: Clear Speech Ability to express ideas and wants: Understood Understanding verbal content: Understands - Mood and Behavior Patterns Appearance: Well Groomed Mood: Normal Attitude: Cooperative Motor Activity: Calm Affect: Appropriate Hallucinations: Denies - Physical Functioning Activity Level: Up with assist x1 Turning: With partial assist ROM Ability: Moves all extremities, Limited/Compromised Assistive Devices: 2 Wheel Walker Ambulation Ability: Dependent Bed Mobility: Dependent Transfer Ability: Independent Bathing Ability: Independent Personal Hygiene: Independent Dressing Ability: Independent Eating (Feeding) Ability: Independent Toileting Ability: Independent Administer Own Medication: Dependent - Continence Bowel Pattern: Normal for Patient Bladder Pattern: Normal Urinary Incontinence: Unconscious Meds/Allergies - Allergies Allergies Allergy/AdvReac Type Severity Reaction Status Date / Time No Known Drug Allergies Allergy Verified 12/13/18 03:59 - Active Medications Current Medications Acetaminophen (Tylenol 500mg Tab) 500 mg PO Q6H PRN PRN Reason: PAIN/HEADACHE/TEMP>100.5 Last Admin: 01/23/19 06:48 Dose: 500 mg Documented by: Hydrocodone Bitart/Acetaminophen ([place] 7.5mg/325mg) 1 each PO Q6H PRN PRN Reason: PAIN - MILD (1-4) Last Admin: 01/23/19 00:36 Dose: 1 each Documented by: Artificial Tears (Akwa Tears) 1 drop OPTH QID PRN PRN Reason: DRY EYE Last Admin: 01/20/19 15:42 Dose: 1 drop Documented by: Ciprofloxacin (Cipro) 500 mg PO 0900,2100 [facility] Last Admin: 01/23/19 10:07 Dose: 500 mg Documented by: Cyanocobalamin (Vitamin B-12) 500 mcg PO DAILY [facility] Last Admin: 01/23/19 10:04 Dose: 500 mcg Documented by: Folic Acid () 1 mg PO DAILY [facility] Last Admin: 01/23/19 10:04 Dose: 1 mg Documented by: Furosemide (Lasix) 40 mg PO DAILY [facility] Last Admin: 01/23/19 10:07 Dose: 40 mg Documented by: Guaifenesin (Robitussin Dm) 10 ml PO Q6H PRN PRN Reason: COUGH Last Admin: 01/18/19 21:52 Dose: 10 ml Documented by: [facility]othy[facility]ine [facility]) [facility] Admin: 01/23/19 06:22 Dose: 50 mcg Documented by: Metoprolol Succinate (Toprol Xl) 12.5 mg PO DAILY [facility] Last Admin: 01/23/19 10:05 Dose: 12.5 mg Documented by: Patient Own Med: (Promacta 75mg) 1 each MC DAILY [facility] Last Admin: 01/22/19 09:27 Dose: 1 each Documented by: Patient Own Med: (Danazol 200mg) 1 each MC DAILY [facility] Last Admin: 01/22/19 09:27 Dose: 1 each Documented by: Polyethylene Glycol (Miralax) 17 gm PO DAILY [facility] Last Admin: 01/23/19 10:11 Dose: Not Given Documented by: Potassium Chloride (Klor-Con) 10 meq PO DAILY [facility] Last Admin: 01/23/19 10:05 Dose: 10 meq Documented by: Prednisone (Prednisone 1mg) 2.5 mg PO DAILYWM [facility] Last Admin: 01/23/19 10:06 Dose: 2.5 mg Documented by: Pregabalin (Lyrica) 25 mg PO BID [facility] Last Admin: 01/23/19 10:06 Dose: 25 mg Documented by: Sertraline HCl (Zoloft) 50 mg PO DAILY [facility] Last Admin: 01/23/19 10:05 Dose: 50 mg Documented by: Temazepam (Restoril) 7.5 mg PO QHS PRN PRN Reason: INSOMNIA Warfarin Sodium (Coumadin) 2 mg PO [id number] [facility] Zinc Oxide (Desitin) 10 gm TOP ASDIR PRN PRN Reason: RASH Objective - Vital Signs Vital Signs: Vital Signs - Last 24 Hrs Temp Pulse Resp BP BP Pulse Ox 01/22/19 20:00 98.8 F 79 16 116/75 94 L 01/22/19 14:07 97.5 F L 136/73 - General General Appearance: Alert, Cooperative, No acute distress Limitations: Physical limitation - Head Head exam: Atraumatic, Normocephalic - Eye Eye exam: Normal appearance, PERRL - ENT ENT exam: Normal exam, Mucous membranes moist Ear exam: Normal external inspection Nasal Exam: Normal inspection - Respiratory Respiratory exam: Normal lung sounds bilaterally - Cardiovascular Cardiovascular Exam: Normal heart sounds, Irregular rhythm Peripheral Pulses: 3+: Radial (R), Radial (L), Dorsalis Pedis (R), Dorsalis Pedis (L) - GI/Abdominal GI/Abdominal exam: Soft, Normal bowel sounds - Rectal Rectal exam: Deferred - exam: Deferred - Extremities Extremities exam: Tenderness (right hip), Other (right hip/trochanter mildly tender to touch, no significant erythema ). negative: Normal inspection (postsurgical scar of right hip, right knee immobilzer. ), Full ROM - Neurological Neurological exam: negative: Abnormal gait - Skin Skin exam: Erythema (mild of right hip), Other (ecchymosis of bilateral right upper ext) H&P Results - Labs Result Diagrams: 01/19/19 06:10 01/19/19 06:10 Discharge Potential - Discharge Needs Community Services Used Prior to Admission: Home Health Nurse, Occupational Therapy, Physical Therapy Patient Discharge Plan Description: Return Home, AFC/Assisted Living Community Services Needed at Discharge: Home Health Nurse, Occupational Therapy, Physical Therapy Discharge Needs Comment: Current with [facility] home services Plan - Swing Bed Certification Initial Certification Due: 01/16/19 14 Day Re-Cert Due: 01/30/19 44 Day Re-Cert Due: 03/01/19 74 Day Re-Cert Due: 03/31/19 - Detailed Diagnosis and Plan (1) Physical deconditioning Current Visit: Yes Status: Acute Base Code: R53.81 - OTHER MALAISE Comment: 01/20/19: - 2/2 to right hip pain from recent total hip replacement with complication of dislocation and hematoma. - Difficulty with transfering from wheelchair and is an assist with ambulation. - PT/OT evaluation on FridayJanuary 18. 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 - PT/INR ordered. (3) CAD (coronary artery disease) Current Visit: Yes Status: Acute Base Code: I25.10 - ATHSCL HEART DISEASE OF [place] CORONARY ARTERY W/O ANG PCTRS Comment: 01/20/19: - Hx of NSTEMI - Continue with BB, Nitrostat. Not on statin or ASA. (4) Chronic anemia Current Visit: Yes Status: Acute Base Code: D64.9 - ANEMIA, UNSPECIFIED Comment: 01/20/19: - Hx of Autoimmune hemolytic anemia. - Labs from [facility] 01/14: Hgb 8, MCV 84, Plts 150. -pt has lab orders from [facility]oc to be completed before next OV (5) Hematoma of right hip Current Visit: Yes Status: Acute Base Code: S70.01XA - CONTUSION OF RIGHT HIP, INITIAL ENCOUNTER Comment: 01/23/19 -pt heard moaning from pain, reports "nerve pain" from right lateral hip to the ankle -hematoma is resolving from closed relocation done in ER, no worsen of edema or hematoma -starting lyrica 25mg BID today 01/20/19: -elevated PT/INR, holding coumadin for 2 days, pharmacy adjusting - Resolving. - PT/INR at [facility] 01/14: 15/1.6, - Resuming Warfarin dose of 3mg QD. - Repeat PT/INR today. (6) History of ITP Current Visit: Yes Status: Acute Base Code: Z86.2 - PRSNL HISTORY OF DIS OF THE BLD/BLD-FORM ORG/IMMUN MECHNSM Comment: 01/20/19: - Resume Prednisone 2.5 mg, Danocrine 200mg QD, and Promacta 75mg daily. (7) Status post right hip replacement Current Visit: Yes Status: Acute Base Code: Z96.641 - PRESENCE OF RIGHT ARTIFICIAL HIP JOINT Comment: 01/23/19 -pt heard moaning from pain, reports "nerve pain" from right lateral hip to the ankle -hematoma is resolving from closed relocation done in ER, no worsen of edema or hematoma -starting lyrica 25mg BID today 01/20/19: - Total hip replacement 09/2018 w/ complication of dislocation and most recently hematoma. - Layton 7.5mg/325mg Q6H prn, Tylenol 500mg Q6H prn. - Follow up with Orthopedic surgery as planned. (8) Depression Current Visit: Yes Status: Chronic Base Code: F32.9 - MAJOR DEPRESSIVE DISORDER, SINGLE EPISODE, UNSPECIFIED Comment: 01/20/19: - Resume Zoloft 50mg daily. (9) Hypothyroidism Current Visit: Yes Status: Chronic Base Code: E03.9 - HYPOTHYROIDISM, UNSPECIFIED Comment: 01/20/19: - Resume Levothyroxine 50mcg daily. 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 (11) UTI (urinary tract infection) Current Visit: Yes Status: Acute Base Code: N39.0 - URINARY TRACT INFECTION, SITE NOT SPECIFIED Comment: 01/20/19 -UA positive, Cipro 500mg PO BID started several days ago -mentation improved with tx -INR elevated with tx, phamacy dosing adjustments (12) DNR (do not resuscitate) Current Visit: No Status: Acute Base Code: Z66 - DO NOT RESUSCITATE Comment: 01/20/19 -maintain DNR status 01/16/19: - Discussed code status with the patient and her son.
[2019-01-23] MEDS: DANAZOL 200 MG MC SCH (11:30)
[2019-01-23] MEDS: PROMACTA 75 MG MC SCH (11:30)
[2019-01-24] MEDS: LEVOTHYROXINE SODIUM 50 MCG TABLET PO SCH (07:52)
[2019-01-24] MEDS: METOPROLOL SUCC 25 MG TAB.ER PO SCH ×2 (08:16→11:18)
[2019-01-24] MEDS: PREDNISONE 1 MG TABLET PO SCH (08:17)
[2019-01-24] MEDS: CIPROFLOXACIN HCL 500 MG TABLET PO SCH ×2 (08:18→21:16)
[2019-01-24] MEDS: FOLIC ACID 1 MG TABLET PO SCH ×2 (08:18→11:17)
[2019-01-24] MEDS: FUROSEMIDE 40 MG TABLET PO SCH ×2 (08:18→11:17)
[2019-01-24] MEDS: PREGABALIN 25 MG CAPSULE PO SCH (08:22)
[2019-01-24 09:46] LABS: INR 3.6; PROTHROMBIN TIME (PATIENT) 35.1 SECONDS (9.5-12.1)
[2019-01-24] MEDS: POLYETHYLENE GLY 17 GM PACKET PO SCH (11:18)
[2019-01-24] MEDS: CYANOCOBALAMIN (VITAMIN B-12) 100 MCG TABLET PO SCH (11:20)
[2019-01-24] MEDS: SERTRALINE HCL 50 MG TABLET PO SCH (11:21)
[2019-01-24] MEDS: POTASSIUM CHLORIDE 10 MEQ TAB PO SCH (11:21)
[2019-01-24] MEDS: DANAZOL 200 MG MC SCH (11:27)
[2019-01-24] MEDS: PROMACTA 75 MG MC SCH (11:27)
[2019-01-24] MEDS ORDERED: PREGABALIN 25 MG CAPSULE PO SCH (22:00)
[2019-01-25] MEDS: CYANOCOBALAMIN (VITAMIN B-12) 100 MCG TABLET PO SCH (09:17)
[2019-01-25] MEDS: LEVOTHYROXINE SODIUM 50 MCG TABLET PO SCH (09:17)
[2019-01-25] MEDS: METOPROLOL SUCC 25 MG TAB.ER PO SCH (09:17)
[2019-01-25] MEDS: POTASSIUM CHLORIDE 10 MEQ TAB PO SCH (09:18)
[2019-01-25] MEDS: FOLIC ACID 1 MG TABLET PO SCH (09:18)
[2019-01-25] MEDS: FUROSEMIDE 40 MG TABLET PO SCH (09:18)
[2019-01-25] MEDS: CIPROFLOXACIN HCL 500 MG TABLET PO SCH (09:18)
[2019-01-25] MEDS: SERTRALINE HCL 50 MG TABLET PO SCH (09:18)
[2019-01-25] MEDS: PROMACTA 75 MG MC SCH (09:21)
[2019-01-25] MEDS: DANAZOL 200 MG MC SCH (09:21)
[2019-01-25] MEDS: PREDNISONE 1 MG TABLET PO SCH (09:27)
[2019-01-25] MEDS: POLYETHYLENE GLY 17 GM PACKET PO SCH (09:28)
--- NOTE | 2019-01-25 10:14 | Physical Therapy Tx Note ---
Physical Therapy Tx Note - Treatment Note Tolerated: Fair Total Time Spent With Patient: 25 Physical Therapy Tx Note: Detail (The patient was up in chair when PT arrived and moaning in pain which she stated was her R hip. The patient put on bra and shirt with assist to hook bra only and minimal PA and occasional assist to button . The patient required minimal to moderate assist to pull up briefs and pants. The patient was independent with sit to and from stand transfer with verbal cues to push up from chair. The patient ambulated with front wheeled walker with CG of one to bathroom x 10 feet. The patient stood to sink and brushed teeth and required CG due to LOB x 1. The patient walked 5 feet out of bathroom with walker then stated she had to go to bathroom. Patient transfered to toilet with CG of 1 with use of wheeled walker. The patient then ambulated back to recliner with front wheeled walker with CG a distance of 12 feet. Patient stated she was too fatigued to complete further physical activities. The patient was left in recliner with chair alarm set and son present.) Physical Therapy Problem List: Detail (1. Requires assist w/bed mobility and transfers. 2. Difficulty walking. 3. Weakness in R hip. 4. History of falls.) Physical Therapy Goals: 1. Pt will be independent with bed mobility. 2. Pt will be independent with transfers. 3. Pt will safely ambulate with front wheeled walker over household distances/surfaces with supervision. 4. Pt will exhibit 4/5 strength in proximal R LE and weak LE muscles for greater stability w/ambulation. Physical Therapy Plan: Patient will be seen 1-2x/daily M-F for bed mobility and transfer traing, gait training, LE strengthening and endurance training, balance training.
[2019-01-25 10:36] LABS: HEMOGLOBIN 8.7 gm/dl (11.6-16.0); MEAN CORPUSCULAR HEMOGLOBIN 25.8 pg (27-33); MEAN CORPUSCULAR HGB CONC 28.1 g/dl (32-36); PLATELET COUNT 188 K/uL (130-400); RED BLOOD COUNT 3.37 M/uL (3.80-5.40); RED CELL DISTRIBUTION WIDTH 21.4 % (11.5-14.5); RETICULOCYTE COUNT 3.5 % (0.0-2.0); WHITE BLOOD COUNT W/O DIFF 9.2 K/uL (4.2-12.2)
[2019-01-25 10:58] LABS: ALB/GLOB RATIO 1.5 (1.1-1.8); ALBUMIN 3.5 g/dL (4.0-5.0); BILIRUBIN,TOTAL 0.3 mg/dL (0.2-1.0); CREATININE 1.7 mg/dL (0.5-0.9); TOTAL PROTEIN 5.9 g/dL (6.6-8.7)
[2019-01-25 11:00] LABS: ANISOCYTOSIS 2+; HYPOCHROMIA 2+; PLATELET ESTIMATE NORMAL (NORMAL); POIKILOCYTOSIS 1+
[2019-01-25 11:03] LABS: FERRITIN 130.2 ng/mL (13-150)
[2019-01-25] MEDS: 0.9 % SODIUM CHLORIDE 1000ML 1,000 ML IV PRN (13:00)
--- NOTE | 2019-01-25 13:59 | Occupational Therapy Tx Note ---
Occupational Therapy Tx Note - Treatment Note Tolerated: Good Total Time Spent With Patient: 20 Occupational Therapy Treatment Note: Detail (Pt up in chair upon arrival w/ nsg getting IV in order to rehydrate kidneys. Cleared to work with OT/PT for car t/f. See PT note for car t/f details. Patient able to don L sock with min A and mod verbal cues using sock aid. Attempted to complete with R sock but unable to see R foot or maneuver sock aid effectively enough to thread over R foot. Dependent w/c mobility to rehab gym to complete UE exercises from table top level. Patient completed resistive clothespins yellow, red and green on vertical pole with BUE's. Patient required multiple rest breaks to complete this exercise and requested to be taken back to room due to fatigue. Patient escorted back to room by PT.) Occupational Therapy Problem List: Detail (1. Decreased Ind with total body dressing. 2. Decreased Ind with grooming/hygiene tasks. 3. Decreased Ind with showering. 4. Decreased endurance needed for safe and Ind mobility and self cares.) Occupational Therapy Goals: 1. Pt will be Ind with total body dressing using adaptive equipment while maintaining total hip precautions. 2. Pt will be Ind with grooming/hygiene tasks. 3. Pt will be Ind with showering in sitting. 4. Pt will demonstrate improved overall endurance needed for safe and Ind ADLs and functional mobility. Prognosis: Moderate Occupational Therapy Plan: OT 2-4 times per week to address goals and problem list as above.
--- NOTE | 2019-01-25 15:16 | Physical Therapy Tx Note ---
Physical Therapy Tx Note - Treatment Note Tolerated: Fair Total Time Spent With Patient: 15 Physical Therapy Tx Note: Detail (The patient was up in recliner when PT arrived. The patient ambulated 10 feet to wheelchair with front wheeled walker with CG of 1 and verbal cues for proper use of walker. The patient was taken to her car and completed car transfer with CG/minimal assist of 1 and minimal PA to scoot R LE in. Patient was unable to get R LE in with shoe on due to R knee immobilizer. With shoe off, patient was able to get foot in with seat positioned all the way back and tilted all the way back. The patient was able to get out of car with just minimal assist to lift R LE out of car. The patient was too fatigued to attempt another car transfer. Will practice car transfer tomorrow. The patient exhibited some unsteadiness with both ambulation and transferring due to occasional L knee buckling.) Physical Therapy Problem List: Detail (1. Requires assist w/bed mobility and transfers. 2. Difficulty walking. 3. Weakness in R hip. 4. History of falls.) Physical Therapy Goals: 1. Pt will be independent with bed mobility. 2. Pt will be independent with transfers. 3. Pt will safely ambulate with front wheeled walker over household distances/surfaces with supervision. 4. Pt will exhibit 4/5 strength in proximal R LE and weak LE muscles for greater stability w/ambulation. Physical Therapy Plan: Patient will be seen 1-2x/daily M-F for bed mobility and transfer traing, gait training, LE strengthening and endurance training, balance training.
[2019-01-25] MEDS ORDERED: WARFARIN 1 MG TABLET PO SCH (16:00)
[2019-01-25] MEDS: GABAPENTIN 100 MG CAPSULE PO SCH (22:43)
[2019-01-26] MEDS: LEVOTHYROXINE SODIUM 50 MCG TABLET PO SCH (06:01)
[2019-01-26] MEDS: 0.9 % SODIUM CHLORIDE 1000ML 1,000 ML IV PRN (08:08)
[2019-01-26] MEDS: SERTRALINE HCL 50 MG TABLET PO SCH (09:00)
[2019-01-26] MEDS: PREDNISONE 1 MG TABLET PO SCH (09:01)
[2019-01-26] MEDS: POLYETHYLENE GLY 17 GM PACKET PO SCH (09:03)
[2019-01-26] MEDS: CYANOCOBALAMIN (VITAMIN B-12) 100 MCG TABLET PO SCH (09:04)
[2019-01-26] MEDS: DANAZOL 200 MG MC SCH (09:04)
[2019-01-26] MEDS: PROMACTA 75 MG MC SCH (09:04)
[2019-01-26] MEDS: METOPROLOL SUCC 25 MG TAB.ER PO SCH (09:04)
[2019-01-26] MEDS: POTASSIUM CHLORIDE 10 MEQ TAB PO SCH (09:05)
[2019-01-26] MEDS: FUROSEMIDE 40 MG TABLET PO SCH (09:07)
[2019-01-26] MEDS: CIPROFLOXACIN HCL 500 MG TABLET PO SCH (09:08)
[2019-01-26] MEDS: FOLIC ACID 1 MG TABLET PO SCH (09:08)
[2019-01-26 09:45] LABS: CREATININE 1.4 mg/dL (0.5-0.9)
[2019-01-26] MEDS ORDERED: CIPROFLOXACIN HCL 500 MG TABLET PO SCH (10:00)
--- NOTE | 2019-01-26 10:34 | Physical Therapy Tx Note ---
Physical Therapy Tx Note - Treatment Note Tolerated: Good Total Time Spent With Patient: 20 Physical Therapy Tx Note: Detail (The patient was seen this am for car transfer after OT treatment. Patient completed car transfer x 3 with CG to minimal PA of 1 and verbal cues for proper technique(scooting over prior to putting legs in)and not to break THR precautions. Patient was returned to room and transferred to chair with use of walker to recliner. Knee immobilizer was in place and chair alarm set. The call light was within reach. Will see patient this pm for ambulation, LE strengthening exercises.) Physical Therapy Problem List: Detail (1. Requires assist w/bed mobility and transfers. 2. Difficulty walking. 3. Weakness in R hip. 4. History of falls.) Physical Therapy Goals: 1. Pt will be independent with bed mobility. 2. Pt will be independent with transfers. 3. Pt will safely ambulate with front wheeled walker over household distances/surfaces with supervision. 4. Pt will exhibit 4/5 strength in proximal R LE and weak LE muscles for greater stability w/ambulation. Physical Therapy Plan: Patient will be seen 1-2x/daily M-F for bed mobility and transfer traing, gait training, LE strengthening and endurance training, balance training.
--- NOTE | 2019-01-26 11:00 | Swing Bed Certification/Recert ---
Initial Certification Due: 01/16/19 14 Day Re-Cert Due: 01/30/19 44 Day Re-Cert Due: 03/01/19 74 Day Re-Cert Due: 03/31/19 CERTIFICATION CERTIFICATION OF PATIENT ADMISSION Required at time of admission. Due: 01/16/19 I certify that SNF services are required to be given on an inpatient basis because of the above named patient's need for intermediate care on a continui ng basis for the condition(s) for which he/she was receiving inpatient hospital services prior to his/her transfer to the SNF. The patient's current needs for skilled care includes: [PT/OT, intermediate care, lab monitoring] Shwetha Haro N.P. 01/26/19 Swing bed re-certification, pt continues PT/OT services for weakness, as well as lab monitoring
[2019-01-26] MEDS ORDERED: CALCIUM CARBONATE 500 MG TAB.CHEW PO PRN (11:58)
--- NOTE | 2019-01-26 12:28 | Occupational Therapy Tx Note ---
Occupational Therapy Tx Note - Treatment Note Tolerated: Good Total Time Spent With Patient: 32 (2 ADL) Occupational Therapy Treatment Note: Detail (significant assist with showering and dressing due to mild confusion, significant fatigue and also she has significant difficulty with vision which is impeding her ability to use adaptive equipment for total hip precautions.) Occupational Therapy Problem List: Detail (1. Decreased Ind with total body dressing. 2. Decreased Ind with grooming/hygiene tasks. 3. Decreased Ind with showering. 4. Decreased endurance needed for safe and Ind mobility and self cares.) Occupational Therapy Goals: 1. Pt will be Ind with total body dressing using adaptive equipment while maintaining total hip precautions. 2. Pt will be Ind with grooming/hygiene tasks. 3. Pt will be Ind with showering in sitting. 4. Pt will demonstrate improved overall endurance needed for safe and Ind ADLs and functional mobility. Prognosis: Good Occupational Therapy Plan: OT 2-4 times per week to address goals and problem list as above.
--- NOTE | 2019-01-26 13:28 | Physical Therapy Tx Note ---
Physical Therapy Tx Note - Treatment Note Physical Therapy Tx Note: Detail (patient refused pm treatment stating she was tired and did not feel well. Will check on patient tomorrow afternoon after her doctor's appt.) Physical Therapy Problem List: Detail (1. Requires assist w/bed mobility and tr ansfers. 2. Difficulty walking. 3. Weakness in R hip. 4. History of falls.) Physical Therapy Goals: 1. Pt will be independent with bed mobility. 2. Pt will be independent with transfers. 3. Pt will safely ambulate with front wheeled walker over household distances/surfaces with supervision. 4. Pt will exhibit 4/5 strength in proximal R LE and weak LE muscles for greater stability w/ambulation. Physical Therapy Plan: Patient will be seen 1-2x/daily M-F for bed mobility and transfer traing, gait training, LE strengthening and endurance training, balance training.
[2019-01-26] MEDS: WARFARIN 1 MG TABLET PO SCH (17:28)
[2019-01-26] MEDS: GABAPENTIN 100 MG CAPSULE PO SCH (21:22)
[2019-01-27] MEDS: LEVOTHYROXINE SODIUM 50 MCG TABLET PO SCH (06:38)
[2019-01-27] MEDS: CYANOCOBALAMIN (VITAMIN B-12) 100 MCG TABLET PO SCH (09:58)
[2019-01-27] MEDS: FUROSEMIDE 40 MG TABLET PO SCH (09:58)
[2019-01-27] MEDS: SERTRALINE HCL 50 MG TABLET PO SCH (09:59)
[2019-01-27] MEDS: FOLIC ACID 1 MG TABLET PO SCH (09:59)
[2019-01-27] MEDS: METOPROLOL SUCC 25 MG TAB.ER PO SCH (09:59)
[2019-01-27] MEDS: POTASSIUM CHLORIDE 10 MEQ TAB PO SCH (09:59)
[2019-01-27] MEDS: POLYETHYLENE GLY 17 GM PACKET PO SCH (10:01)
[2019-01-27] MEDS: DANAZOL 200 MG MC SCH (10:01)
[2019-01-27] MEDS: PROMACTA 75 MG MC SCH (10:01)
[2019-01-27] MEDS: CIPROFLOXACIN HCL 500 MG TABLET PO SCH (10:44)
[2019-01-27] MEDS: PREDNISONE 1 MG TABLET PO SCH (10:44)
--- NOTE | 2019-01-27 14:50 | Physical Therapy Tx Note ---
Physical Therapy Tx Note - Treatment Note Tolerated: Good Total Time Spent With Patient: 30 Physical Therapy Tx Note: Detail (Patient was in chair when PT arrived. Per orthopedic physician's order R knee immobilizer was discontinued. NMES was placed on R gluteus medius (per Orthopedic Physician's order) x 3 min. 10/10 cycle with patient completing gluteal set during active cycle. Patient reported she did not feel NMES- trace contraction palpated. Patient feel asleep during treatment. The patient then completed the following LE exercises standing gluteal sets, resisted hip abduction/adduction, LAQ and resisted hamstring curls all x 10 reps. The patient was able to acheive sit to stand from recliner independently. The patient ambulated with front wheeled walker with CG and verbal cues to stand tall a distance of 15 feet x 1 and 10 feet x 1. Patient has difficulty weight bearing on R LE and states" it feels like my right leg is going to give out." Will reposition electrodes next session to maximize / increase palpable contractions of R gluteal musculature.) Physical Therapy Problem List: Detail (1. Requires assist w/bed mobility and transfers. 2. Difficulty walking. 3. Weakness in R hip. 4. History of falls.) Physical Therapy Goals: 1. Pt will be independent with bed mobility. 2. Pt will be independent with transfers. 3. Pt will safely ambulate with front wheeled walker over household distances/surfaces with supervision. 4. Pt will exhibit 4/5 strength in proximal R LE and weak LE muscles for greater stability w/ambulation. Physical Therapy Plan: Patient will be seen 1-2x/daily M-F for bed mobility and transfer traing, gait training, LE strengthening and endurance training, balance training.
[2019-01-27] MEDS: WARFARIN 1 MG TABLET PO SCH (17:35)
[2019-01-27] MEDS: GABAPENTIN 100 MG CAPSULE PO SCH (21:22)
[2019-01-28] MEDS: LEVOTHYROXINE SODIUM 50 MCG TABLET PO SCH (06:07)
[2019-01-28] MEDS: PREDNISONE 1 MG TABLET PO SCH (07:46)
[2019-01-28 08:40] LABS: INR 2.1; PROTHROMBIN TIME (PATIENT) 20.9 SECONDS (9.5-12.1)
[2019-01-28] MEDS: CIPROFLOXACIN HCL 500 MG TABLET PO SCH (09:08)
[2019-01-28] MEDS: SERTRALINE HCL 50 MG TABLET PO SCH (09:48)
[2019-01-28] MEDS: FOLIC ACID 1 MG TABLET PO SCH (09:48)
[2019-01-28] MEDS: CYANOCOBALAMIN (VITAMIN B-12) 100 MCG TABLET PO SCH (09:48)
[2019-01-28] MEDS: POLYETHYLENE GLY 17 GM PACKET PO SCH (09:49)
[2019-01-28] MEDS: METOPROLOL SUCC 25 MG TAB.ER PO SCH (09:49)
[2019-01-28] MEDS: POTASSIUM CHLORIDE 10 MEQ TAB PO SCH (09:49)
[2019-01-28] MEDS: FUROSEMIDE 40 MG TABLET PO SCH (09:49)
[2019-01-28] MEDS: DANAZOL 200 MG MC SCH (09:50)
[2019-01-28] MEDS: PROMACTA 75 MG MC SCH (09:50)
--- NOTE | 2019-01-28 15:27 | Physical Therapy Tx Note ---
Physical Therapy Tx Note - Treatment Note Tolerated: Good Total Time Spent With Patient: 30 Physical Therapy Tx Note: Detail (Patient was sleeping in chair upon [employer]PECT[employer] arrival. Patient states she's feeling good today. Patient transferred sit to and from stand x3 CGA x1. Patient ambulated 25 feet, 30 feet, and 55 feet with wheeled walker CGA x1. Patient performed the following seated exercises x10 reps each: heel raises, toe raises, LAQ, hamstring curls with yellow theraband, hip abduction with yellow theraband, isometric hip adduction, glut squeezes, and marching. Patient tolerated treatment well. Patient displays decreased endurance with ambulation, requiring seated rest breaks. Patient required verbal cueing with stand to sit transfers to reach back for chair and with ambulation to keep walker close to body. Patient was left seated in chair with call light within reach.) Physical Therapy Problem List: Detail (1. Requires assist w/bed mobility and transfers. 2. Difficulty walking. 3. Weakness in R hip. 4. History of falls.) Physical Therapy Goals: 1. Pt will be independent with bed mobility. 2. Pt will be independent with transfers. 3. Pt will safely ambulate with front wheeled walker over household distances/surfaces with supervision. 4. Pt will exhibit 4/5 strength in proximal R LE and weak LE muscles for greater stability w/ambulation. Prognosis: Good Physical Therapy Plan: Patient will be seen 1-2x/daily M-F for bed mobility and transfer traing, gait training, LE strengthening and endurance training, balance training.
[2019-01-28] MEDS: WARFARIN 1 MG TABLET PO SCH (16:45)
--- NOTE | 2019-01-28 20:11 | Physical Therapy Tx Note ---
Physical Therapy Tx Note - Treatment Note Tolerated: Good Total Time Spent With Patient: 40 Physical Therapy Tx Note: Detail (Pt asleep in chair upon arrival; awakened easily and cooperative for therapy. Discussed planned activity (electrical stimulation for hip); applied electrodes to R gluteus medius with no muscle contraction elicited. Pt recruits muscle effectively with isometric gluteal and with resisted hip abduction. Pt performed 10 reps each of seated hip flexion, isometric hip abduction and adduction, isometric knee flexion, seated knee extension, and ankle dorsiflexion. Performed sit/stand transfer with SBA, was able to stand unsupported briefly while attempting to button her pants, then ambulated with front wheeled walker out to wheelchair in hallway by chapel (about 40 feet) w/CGA. Sat and rested briefly in wheelchair then stood w/CGA and ambulated back to bedside chair (another 40 feet) w/CGA. Positioned in chair w/towel roll around neck and pillow behind head to attempt to change sleeping posture where head leans heavily to L. Call light placed in reach, bedside table next to chair, chair alarm in place and active. Nrsg notified.) Physical Therapy Problem List: Detail (1. Requires assist w/bed mobility and transfers. 2. Difficulty walking. 3. Weakness in R hip. 4. History of falls.) Physical Therapy Goals: 1. Pt will be independent with bed mobility. 2. Pt will be independent with transfers. 3. Pt will safely ambulate with front wheeled walker over household distances/surfaces with supervision. 4. Pt will exhibit 4/5 strength in proximal R LE and weak LE muscles for greater stability w/ambulation. Physical Therapy Plan: Patient will be seen 1-2x/daily M-F for bed mobility and transfer traing, gait training, LE strengthening and endurance training, balance training.
[2019-01-28] MEDS: ACETAMINOPHEN 500 MG TABLET PO PRN (21:31)
[2019-01-28] MEDS: GABAPENTIN 100 MG CAPSULE PO SCH (21:32)
[2019-01-29] MEDS: ACETAMINOPHEN 500 MG TABLET PO PRN (03:48)
[2019-01-29] MEDS: LEVOTHYROXINE SODIUM 50 MCG TABLET PO SCH (06:59)
[2019-01-29] MEDS: PREDNISONE 1 MG TABLET PO SCH (08:43)
--- NOTE | 2019-01-29 09:53 | Physical Therapy Tx Note ---
Physical Therapy Tx Note - Treatment Note Tolerated: Good Total Time Spent With Patient: 30 Physical Therapy Tx Note: Detail (The patient was sitting on the edge of the bed when PT arrived. The patient initially had no complaints of pain. The patient acheived sit to stand with supervision for safety and ambulated 5 feet to the chair with CG of one and verbal cues to stand tall. The patient was taken to Rehab Department . LE strength was retested; refer to discharge summary for strength grades. The patient transferred to and from the mat table with CG of 1 and verbal cues to reach for mat. NMES was applied to glut. medius using larger electrodes to facilitate contraction. Trace contraction was palpated. The patient completed both isometric gluteal contraction and gluteal herminia sets during 10 sec on cycle for 5 minutes when patient became fatigued. Stronger p alpable contractions were noted with isometric contractions however significant weakness in gluteal herminia and medius remains. The patient was independent with supine to and from sit transfer from mat table. The patient was returned to room following OT session the patient ambulated 20 feet with CG of one for safety. Improved weight bearing was noted on R LE . The patient was left in recliner wit h chair alarm on and tray table placed in front. Nursing staff was notified that patient had returned.) Physical Therapy Problem List: Detail (1. Requires assist w/bed mobility and transfers. 2. Difficulty walking. 3. Weakness in R hip. 4. History of falls.) Physical Therapy Goals: 1. Pt will be independent with bed mobility. 2. Pt will be independent with transfers. 3. Pt will safely ambulate with front wheeled walker over household distances/surfaces with supervision. 4. Pt will exhibit 4/5 strength in proximal R LE and weak LE muscles for greater stability w/ambulation. Physical Therapy Plan: Patient will be seen 1-2x/daily M-F for bed mobility and transfer traing, gait training, LE strengthening and endurance training, balance training.
[2019-01-29] MEDS: POLYETHYLENE GLY 17 GM PACKET PO SCH (11:01)
[2019-01-29] MEDS: METOPROLOL SUCC 25 MG TAB.ER PO SCH (11:01)
[2019-01-29] MEDS: FUROSEMIDE 40 MG TABLET PO SCH (11:03)
[2019-01-29] MEDS: SERTRALINE HCL 50 MG TABLET PO SCH (11:03)
[2019-01-29] MEDS: CYANOCOBALAMIN (VITAMIN B-12) 100 MCG TABLET PO SCH (11:04)
[2019-01-29] MEDS: POTASSIUM CHLORIDE 10 MEQ TAB PO SCH (11:04)
[2019-01-29] MEDS: FOLIC ACID 1 MG TABLET PO SCH (11:04)
[2019-01-29] MEDS: PROMACTA 75 MG MC SCH (11:06)
[2019-01-29] MEDS: DANAZOL 200 MG MC SCH (11:06)
--- NOTE | 2019-01-29 12:08 | Occupational Therapy Tx Note ---
Occupational Therapy Tx Note - Treatment Note Tolerated: Fair Total Time Spent With Patient: 25 Occupational Therapy Treatment Note: Detail (Patient seen in rehab gym to work on upper extremity strengthening. Patient completed resistive clothespins yellow, red, green, and blue on vertical pole with blue on horizontal pole bilateral hands. Pt required 3 rest breaks per arm due to fatigue in shoulder musculature. Patient also completed gross grasp strengthening with hand helper (3 red rubber bands) 20x each hand. Patient fatigued post treatment. Escorted back to room by PT.) Occupational Therapy Problem List: Detail (1. Decreased Ind with total body dressing. 2. Decreased Ind with grooming/hygiene tasks. 3. Decreased Ind with showering. 4. Decreased endurance needed for safe and Ind mobility and self cares.) Occupational Therapy Goals: 1. Pt will be Ind with total body dressing using adaptive equipment while maintaining total hip precautions. 2. Pt will be Ind with grooming/hygiene tasks. 3. Pt will be Ind with showering in sitting. 4. Pt will demonstrate improved overall endurance needed for safe and Ind ADLs and functional mobility. Prognosis: Moderate Occupational Therapy Plan: OT 2-4 times per week to address goals and problem list as above.
[2019-01-29] MEDS: WARFARIN 1 MG TABLET PO SCH (15:42)
--- NOTE | 2019-01-29 17:27 | Rehab Discharge Summary ---
Patient Information - Patient Information Diagnosis: Deconditioning D/T R hip hematoma, s/p R RETA dislocation/reduction Ordered Treatment: PT Evaluate and Treat Surgery: Yes (R RETA 09/2018) History: Detail (Pt lives at [facility], apparently had a fall resulting in RETA dislocation that was reduced in the ED at [facility]. She was admitted for short term rehabilitation.) Past Medical/Surgical Hx: PAST MEDICAL/SURGICAL HISTORY Past Surgical History hyesterectomy tonsils PMH - Respiratory Hx Respiratory Disorders Yes Hx Chronic Obstructive Yes Pulmonary Disease (COPD) PMH - Cardiovascular Hx Cardiovascular Disorders Yes Hx Heart Attack Yes PMH - Neuro Hx Neurological Disorders Yes Hx Cerebrovascular Accident Yes PMH - GI Hx Gastrointestinal Disorders No PMH - Hx Genitourinary Disorders No PMH - Endocrine Hx Endocrine Disorders No PMH - Musculoskeletal Hx Musculoskeletal Disorders No PMH - Psych Hx Psychiatric Problems No PMH - Hematology/Oncology Hx Hematology/Oncology No Disorders Premorbid Status: Detail (Pt lives at [facility]; she states she was not walking since her surgery, but was walking with a walker prior to surgery. Pt reports staff at [facility] assist with all self cares including showering and dressing.) Precautions: [place], Fall, Other (RETA precautions for posterior surgical approach; to wear knee immobilizer when up and hip abduction pillow in bed; WBAT right LE) Subjective Information - Subjective Information Per Patient (The patient occasionally complained of R hip pain with movement. The patient had less complaints of pain then initially. The patient was unable to rate her pain using 0-10 pain scale.) Objective Data - Mental Status Patient Orientation: Person, Place (The patient was able to follow simple commands. The patient was impulsive at times and demonstrated poor safety judgement.) - ROM Within normal limits (The patient's R LE AROM is now WFL. Use of R knee immobilizer was discontinued by orthopedic surgeon.) - Strength/Tone Not within normal limits (L LE strength was generally 4+ to 5/5 throughout. R hip extensors, rotators, abductors 3-/5, hip adductors 3+/5, knee extensors 4/5, knee flexors 4-/5, ankle musculature 4/5.) - Bed Mobility Independent (The patient is independent with supine to and from sit.) - Transfers Independent (The patient is independent with sit to stand with verbal cues to push up from chair and to position LE's appropriately so she can use them to push up.) - Balance Balance Sitting: Good Balance Standing: Fair (Patient required support of walker and occasionally leaned back especially when pulling pants up.) - Gait Detail (The patient ambulated with front wheeled walker a maximal distance of 55 feet with CG for safety. The patient typically ambulated 35 to 35 feet. The patient had improved weight bearing in R LE after removal of R knee immobilizer .) Therapy Assessment - Therapy Assessment Detail (The patient had improvement in LE strength in some muscle groups, however continues to have significant weakness in R gluteal group. NMES was used per Orthopedic Physician's orders to gluteal group with minimal palpable contractions. Gluteus Medius contractions were palpated with hip abduction resistance. Patient was able to complete Gluteal set with significant less contraction on the R vs. L. Patient required less assistance with transfers, bed mobility and ambulation then initially. The patient is to receive ongoing Home PT services upon discharge from [facility].) Patient Education - Patient Education Teaching Topic: Exercise/Activity (Patient completed LE strengthening exercises with supervision and verbal cueing of PT's.) Response: Return Demonstration Teaching Method: Discussion, Demonstration Teaching Recipient: Patient Barriers To Learning: Age Related Problem List - Problem List Physical Therapy Problem List: Detail (1. Requires assist w/bed mobility and transfers. 2. Difficulty walking. 3. Weakness in R hip. 4. History of falls.) Occupational Therapy Problem List: Detail (1. Decreased Ind with total body dressing. 2. Decreased Ind with grooming/hygiene tasks. 3. Decreased Ind with showering. 4. Decreased endurance needed for safe and Ind mobility and self cares.) Goals - Goals Physical Therapy Goals: 1. Pt will be independent with bed mobility.(Goal Met). 2. Pt will be independent with transfers.(Goal Partially Met-supervison for safety). 3. Pt will safely ambulate with front wheeled walker over household distances/surfaces with supervision.(Partially Met-CG for safety). 4. Pt will exhibit 4/5 strength in proximal R LE and weak LE muscles for greater stability w/ambulation.(Goal partially met- hip musculature remains 3- to 3/5.) Occupational Therapy Goals: 1. Pt will be Ind with total body dressing using adaptive equipment while maintaining total hip precautions. 2. Pt will be Ind with grooming/hygiene tasks. 3. Pt will be Ind with showering in sitting. 4. Pt will demonstrate improved overall endurance needed for safe and Ind ADLs and functional mobility. Plan - Plan Physical Therapy Plan: Patient discharging to [facility]. Patient to recieve Home OT/PT services. Occupational Therapy Plan: OT 2-4 times per week to address goals and problem list as above.
[2019-01-30] MEDS: PREDNISONE 1 MG TABLET PO SCH (07:02)
[2019-01-30] MEDS: LEVOTHYROXINE SODIUM 50 MCG TABLET PO SCH (07:02)
[2019-01-30 09:22] LABS: INR 2.4; PROTHROMBIN TIME (PATIENT) 23.2 SECONDS (9.5-12.1)
[2019-01-30] MEDS: POTASSIUM CHLORIDE 10 MEQ TAB PO SCH (09:30)
[2019-01-30] MEDS: CYANOCOBALAMIN (VITAMIN B-12) 100 MCG TABLET PO SCH (09:30)
[2019-01-30] MEDS: METOPROLOL SUCC 25 MG TAB.ER PO SCH (09:30)
[2019-01-30] MEDS: FOLIC ACID 1 MG TABLET PO SCH (09:31)
[2019-01-30] MEDS: SERTRALINE HCL 50 MG TABLET PO SCH (09:31)
[2019-01-30] MEDS: POLYETHYLENE GLY 17 GM PACKET PO SCH (09:31)
[2019-01-30] MEDS: FUROSEMIDE 40 MG TABLET PO SCH (09:31)
[2019-01-30] MEDS: DANAZOL 200 MG MC SCH (09:31)
[2019-01-30] MEDS: PROMACTA 75 MG MC SCH (09:32)
[2019-01-30] MEDS: WARFARIN 1 MG TABLET PO SCH (15:23)
[2019-01-31] MEDS: LEVOTHYROXINE SODIUM 50 MCG TABLET PO SCH (06:31)
[2019-01-31] MEDS: PREDNISONE 1 MG TABLET PO SCH (08:08)
[2019-01-31] MEDS: CYANOCOBALAMIN (VITAMIN B-12) 100 MCG TABLET PO SCH (09:58)
[2019-01-31] MEDS: FOLIC ACID 1 MG TABLET PO SCH (09:59)
[2019-01-31] MEDS: SERTRALINE HCL 50 MG TABLET PO SCH (09:59)
[2019-01-31] MEDS: FUROSEMIDE 40 MG TABLET PO SCH (09:59)
[2019-01-31] MEDS: POTASSIUM CHLORIDE 10 MEQ TAB PO SCH (09:59)
[2019-01-31] MEDS: METOPROLOL SUCC 25 MG TAB.ER PO SCH (09:59)
[2019-01-31] MEDS: POLYETHYLENE GLY 17 GM PACKET PO SCH (10:00)
[2019-01-31] MEDS: DANAZOL 200 MG MC SCH (10:00)
[2019-01-31] MEDS: PROMACTA 75 MG MC SCH (10:00)
[2019-01-31] MEDS: WARFARIN 1 MG TABLET PO SCH (15:40)
[2019-01-31 21:26] LABS: URINE APPEARANCE CLEAR; URINE BILIRUBIN NEGATIVE (NEGATIVE); URINE BLOOD SMALL (NEGATIVE); URINE COLOR YELLOW; URINE GLUCOSE (UA) NEGATIVE (NEGATIVE); URINE KETONE NEGATIVE (NEGATIVE); URINE LEUKOCYTE ESTERASE NEGATIVE (NEGATIVE); URINE NITRITE NEGATIVE (NEGATIVE); URINE UROBILINOGEN 0.2 E.U./dL (0.20 - 1.00)
[2019-01-31 21:29] LABS: URINE BACTERIA NONE SEEN; URINE EPITHELIAL CELLS 0 - 2 (FEW); URINE WBC 0 - 2 (0-2/hpf)
[2019-02-01] MEDS: PREDNISONE 1 MG TABLET PO SCH (07:37)
[2019-02-01] MEDS: LEVOTHYROXINE SODIUM 50 MCG TABLET PO SCH (07:37)
--- NOTE | 2019-02-01 08:46 | Discharge Summary ---
Providers Discharge Summary Date: 02/01/19 Date of admission: 01/16/19 02:43 Expected Date of Discharge: 02/01/19 Attending physician: KALANI KWONG Primary care physician: LAUREL ROLDAN D.O. Physical Exam - Vital Signs Vital Signs: Vital Signs - Last 24 Hrs Temp Pulse Resp BP Pulse Ox 02/01/19 07:52 97.8 F 87 18 140/62 92 L 01/31/19 20:00 98.1 F 87 18 100/54 96 - General General Appearance: Alert, Cooperative, No acute distress Limitations: Physical limitation - Head Head exam: Atraumatic, Normocephalic - Eye Eye exam: Normal appearance, PERRL - ENT ENT exam: Normal exam, Mucous membranes moist Ear exam: Normal external inspection Nasal Exam: Normal inspection - Respiratory Respiratory exam: Normal lung sounds bilaterally - Cardiovascular Cardiovascular Exam: Normal heart sounds, Irregular rhythm Peripheral Pulses: 3+: Radial (R), Radial (L), Dorsalis Pedis (R), Dorsalis Pedis (L) - GI/Abdominal GI/Abdominal exam: Soft, Normal bowel sounds - Rectal Rectal exam: Deferred - exam: Deferred - Extremities Extremities exam: Tenderness (right hip), Other (right hip/trochanter mildly tender to touch, no significant erythema ). negative: Normal inspection (postsurgical scar of right hip, right knee immobilzer. ), Full ROM - Neurological Neurological exam: negative: Abnormal gait - Skin Skin exam: Erythema (mild of right hip), Other (ecchymosis of bilateral right upper ext) Hospitalization - Hospitalization Admission Diagnosis: deconditioning due to Rt hip hematoma - Problem List/Discharge Diagnosis (1) Physical deconditioning Current Visit: Yes Status: Acute Base Code: R53.81 - OTHER MALAISE Comment: 02/01/19: - 2/2 to right hip pain from recent total hip replacement with complication of dislocation and hematoma. - Difficulty with transfering from wheelchair and is an assist with ambulation. - PT/OT to continue with [facility] at [facility] (2) Anticoagulated Current Visit: Yes Status: Acute Base Code: Z79.01 - COIL BUILDER (CURRENT) USE OF ANTICOAGULANTS Comment: 02/01/19 -pharmacy managing INR -INR 2.4, continue coumadin 1.5mg/day (3) CAD (coronary artery disease) Current Visit: Yes Status: Acute Base Code: I25.10 - ATHSCL HEART DISEASE OF [place] CORONARY ARTERY W/O ANG PCTRS Comment: 02/01/19: - Hx of NSTEMI - Continue with BB, Nitrostat. Not on statin or ASA. (4) Chronic anemia Current Visit: Yes Status: Acute Base Code: D64.9 - ANEMIA, UNSPECIFIED Comment: 02/01/19: - Hx of Autoimmune hemolytic anemia. (5) Hematoma of right hip Current Visit: Yes Status: Acute Base Code: S70.01XA - CONTUSION OF RIGHT HIP, INITIAL ENCOUNTER Comment: 02/01/19 -INR therapeutic -Lyrica was changed to gabapentin 100mg qhs- d/c'd due to drowsiness and pt is tolerating pain well now (6) History of ITP Current Visit: Yes Status: Acute Base Code: Z86.2 - PRSNL HISTORY OF DIS OF THE BLD/BLD-FORM ORG/IMMUN MECHNSM Comment: 02/01/19: - Resume Prednisone 2.5 mg, Danocrine 200mg QD, and Promacta 75mg daily. (7) Status post right hip replacement Current Visit: Yes Status: Acute Base Code: Z96.641 - PRESENCE OF RIGHT ARTIFICIAL HIP JOINT Comment: 02/01/19 -hematoma is resolving from closed relocation done in ER, no worsen of edema or hematoma - Total hip replacement 09/2018 w/ complication of dislocation and most recently hematoma. - Follow up with Orthopedic surgery as planned. (8) UTI (urinary tract infection) Current Visit: Yes Status: Acute Base Code: N39.0 - URINARY TRACT INFECTION, SITE NOT SPECIFIED Comment: 02/01/19 -UA resolved (9) Depression Current Visit: Yes Status: Chronic Base Code: F32.9 - MAJOR DEPRESSIVE DISORDER, SINGLE EPISODE, UNSPECIFIED Comment: 02/01/19: - Resume Zoloft 50mg daily. (10) Hypothyroidism Current Visit: Yes Status: Chronic Base Code: E03.9 - HYPOTHYROIDISM, UNSPECIFIED Comment: 02/01/19: - Resume Levothyroxine 50mcg daily. 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 (12) DNR (do not resuscitate) Current Visit: No Status: Acute Base Code: Z66 - DO NOT RESUSCITATE Comment: 02/01/19: -maintain DNR status - Hospitalization Course Disposition: Change Analyst Care Facility Hospital Course: Mrs. Sousa is an 88 y/o female with recent admission to [facility] after developing a a hematoma of the right hip. The patient hand total right hip replacement in September of this year and and subsequently she had a dislocation of the prosthetic joint. The joint was reduced by Orthopedic surgery and knee immobilizer fitted. It was recommended that the patient go to subacute rehab on after recent admission for CHF exacerbation but the family and the patient decided to have the patient return to [facility] living. 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 The patient is admitting to swing bed for deconditioning. 02/01/19: Will discharge to [facility] today with [facility] PT/OT and nurse in place. PCP: Dr. Maurice Roldan Abnormal Labs: Abnormal Lab Results 01/16/19 01/18/19 01/19/19 Range/Units 10:54 19:40 06:10 WBC 17.8 H (4.2-12.2) K/uL RBC 3.03 L (3.80-5.40) M/uL Hgb 7.8 L (11.6-16.0) gm/dl Hct 27.7 L (35.0-47.0) % MCH 25.7 L (27-33) pg MCHC 28.2 L (32-36) g/dl RDW 20.1 H (11.5-14.5) % Lymphocytes 6.0 L (16-45) % Monocytes 23.0 H (0-9) % Retic Count (0.0-2.0) % Haptoglobin (36-195) mg/dL PT 15.5 H (9.5-12.1) SECONDS BUN (8-23) mg/dL Creatinine (0.5-0.9) mg/dL Random Glucose (74-109) mg/dL Calcium (8.8-10.2) mg/dL Iron (37-145) ug/dL TIBC (105-326) ug/dL Lactate Dehydrogenase (135-214) U/L Total Protein (6.6-8.7) g/dL Albumin (4.0-5.0) g/dL Urine Protein Trace H (NEGATIVE) Urine Blood Small H (NEGATIVE) Urine Nitrite Positive H (NEGATIVE) Ur Leukocyte Esterase Large H (NEGATIVE) 01/19/19 01/20/19 01/22/19 Range/Units 06:10 08:31 09:00 WBC (4.2-12.2) K/uL RBC (3.80-5.40) M/uL Hgb (11.6-16.0) gm/dl Hct (35.0-47.0) % MCH (27-33) pg MCHC (32-36) g/dl RDW (11.5-14.5) % Lymphocytes (16-45) % Monocytes (0-9) % Retic Count (0.0-2.0) % Haptoglobin (36-195) mg/dL PT 46.2 H* 41.0 H* (9.5-12.1) SECONDS BUN (8-23) mg/dL Creatinine 1.2 H (0.5-0.9) mg/dL Random Glucose (74-109) mg/dL Calcium (8.8-10.2) mg/dL Iron (37-145) ug/dL TIBC (105-326) ug/dL Lactate Dehydrogenase (135-214) U/L Total Protein (6.6-8.7) g/dL Albumin (4.0-5.0) g/dL Urine Protein (NEGATIVE) Urine Blood (NEGATIVE) Urine Nitrite (NEGATIVE) Ur Leukocyte Esterase (NEGATIVE) 01/24/19 01/25/19 01/25/19 Range/Units 09:21 10:20 10:20 WBC (4.2-12.2) K/uL RBC 3.37 L (3.80-5.40) M/uL Hgb 8.7 L (11.6-16.0) gm/dl Hct 31.0 L (35.0-47.0) % MCH 25.8 L (27-33) pg MCHC 28.1 L (32-36) g/dl RDW 21.4 H (11.5-14.5) % Lymphocytes 12.0 L (16-45) % Monocytes 19.0 H (0-9) % Retic Count 3.5 H (0.0-2.0) % Haptoglobin (36-195) mg/dL PT 35.1 H (9.5-12.1) SECONDS BUN 26 H (8-23) mg/dL Creatinine 1.7 H (0.5-0.9) mg/dL Random Glucose 126 H (74-109) mg/dL Calcium 8.6 L (8.8-10.2) mg/dL Iron 149 H (37-145) ug/dL TIBC 442 H (105-326) ug/dL Lactate Dehydrogenase 802 H (135-214) U/L Total Protein 5.9 L (6.6-8.7) g/dL Albumin 3.5 L (4.0-5.0) g/dL Urine Protein (NEGATIVE) Urine Blood (NEGATIVE) Urine Nitrite (NEGATIVE) Ur Leukocyte Esterase (NEGATIVE) 01/25/19 01/26/19 01/26/19 Range/Units 10:20 09:24 09:24 WBC (4.2-12.2) K/uL RBC (3.80-5.40) M/uL Hgb (11.6-16.0) gm/dl Hct (35.0-47.0) % MCH (27-33) pg MCHC (32-36) g/dl RDW (11.5-14.5) % Lymphocytes (16-45) % Monocytes (0-9) % Retic Count (0.0-2.0) % Haptoglobin 446 H (36-195) mg/dL PT 20.0 H (9.5-12.1) SECONDS BUN (8-23) mg/dL Creatinine 1.4 H (0.5-0.9) mg/dL Random Glucose 138 H (74-109) mg/dL Calcium 8.4 L (8.8-10.2) mg/dL Iron (37-145) ug/dL TIBC (105-326) ug/dL Lactate Dehydrogenase (135-214) U/L Total Protein (6.6-8.7) g/dL Albumin (4.0-5.0) g/dL Urine Protein (NEGATIVE) Urine Blood (NEGATIVE) Urine Nitrite (NEGATIVE) Ur Leukocyte Esterase (NEGATIVE) 01/28/19 01/30/19 01/31/19 Range/Units 08:27 09:03 21:28 WBC (4.2-12.2) K/uL RBC (3.80-5.40) M/uL Hgb (11.6-16.0) gm/dl Hct (35.0-47.0) % MCH (27-33) pg MCHC (32-36) g/dl RDW (11.5-14.5) % Lymphocytes (16-45) % Monocytes (0-9) % Retic Count (0.0-2.0) % Haptoglobin (36-195) mg/dL PT 20.9 H 23.2 H (9.5-12.1) SECONDS BUN (8-23) mg/dL Creatinine (0.5-0.9) mg/dL Random Glucose (74-109) mg/dL Calcium (8.8-10.2) mg/dL Iron (37-145) ug/dL TIBC (105-326) ug/dL Lactate Dehydrogenase (135-214) U/L Total Protein (6.6-8.7) g/dL Albumin (4.0-5.0) g/dL Urine Protein 30 mg/dl H (NEGATIVE) Urine Blood Small H (NEGATIVE) Urine Nitrite (NEGATIVE) Ur Leukocyte Esterase (NEGATIVE) Condition at Discharge: (2) Stable Discharge Diagnosis: Deconditioning secondary to right hip hematoma VTE Discharge VTE Reason For No Overlap Therapy: Not Indicated (on coumadin) Discharge Medications - Discharge Medications Prescriptions: Warfarin Sodium [Coumadin] 1.5 mg PO [id number] 14 Days #21 tablet Prednisone [Prednisone 1Mg] 2.5 mg PO DAILYWM 14 Days #35 tablet Home Medications: Ambulatory Orders Acetaminophen [Tylenol 500Mg Tab] 1 tab PO Q8HR PRN 12/13/18 [Last Taken 12/12/18] Alendronate Sodium 70 mg PO WEEKLY 12/13/18 [Last Taken 12/07/18] Calcium Carbonate/Vitamin D3 [Calcium 600 + Vit D Tablet] 1 each PO DAILY [Last Taken 12/12/18] Cyanocobalamin (Vitamin B-12) [Vitamin B12] 5,000 mcg PO DAILY 12/13/18 [Last Taken 12/12/18] Danazol 200 mg PO DAILY 12/13/18 [Last Taken 12/12/18] Folic Acid 1 mg PO DAILY 12/13/18 [Last Taken 12/12/18] Levothyroxine Sodium 50 mcg PO DAILY 12/13/18 [Last Taken 12/12/18] Metoprolol Succinate 12.5 mg PO DAILY 12/13/18 [Last Taken 12/12/18] Multivitamin [Multiple Vitamins] 1 each PO DAILY 12/13/18 [Last Taken 12/12/18] Sertraline HCl [Zoloft] 50 mg PO DAILY 12/13/18 [Last Taken 12/12/18] Furosemide 40 mg PO DAILY 12/17/18 [Last Taken Unknown] Potassium Chloride 10 meq PO DAILY 12/17/18 [Last Taken Unknown] Prednisone [Prednisone 1Mg] 2.5 mg PO DAILYWM 14 Days #35 tablet 02/01/19 [Last Taken Unknown] Warfarin Sodium [Coumadin] 1.5 mg PO [id number] 14 Days #21 tablet 02/01/19 [Last Taken Unknown] Zinc Oxide [Desitin] 10 gm TOP ASDIR PRN tube 02/01/19 [Last Taken Unknown] Discharge Plan - Discharge Instructions Activity at Discharge: As Per Physical Therapy Diet at Discharge: Advance to Usual Diet Additional Instructions: Appointment with Dr. Roldan on February 09 at 10:50 Morning medications given today 02/01-see medication record Diet as previiously Ambulate with walker Quality Measures - Quality Measures Quality Measures: Advance Directives, Coronary Artery Disease: Antiplatelet Therapy, Documentation of Current Medications in Medical Record, Elder Maltreatment Screen and Follow-Up Plan, Heart Failure, Screening for High Blood Pressure and F/U Documented - Current Medications Quality Measure: Measure #130: Documentation of Current Medications Documentation of Current Medications: <Current Medications Documented/Reviewed> [G8427] - Blood Pressure Screening Quality Measure: Screening for High Blood Pressure and Follow-Up Documented Does Patient Have Any of the Following: Active Dx of HTN Blood Pressure Classification: Pre-Hypertensive BP Reading Systolic Measurement: 123 Diastolic Measurement: 65 Screening for High Blood Pressure: Patient Exclusion, Hx of HTN [G9744] - Coronary Artery Disease Quality Measure: Measure #6: Coronary Artery Disease (CAD) Antiplatelet Therapy: Not Prescribed, Reason not Specified [4086F with 8P] (on coumadin) - Heart Failure (LAURIE/ARB Therapy) Quality Measure: Heart Failure Left Ventricular Systolic Function: LV Ejection Fraction less than 40% [3021F] LAURIE Inhibitor or ARB Therapy for LVSD: Not Prescribed for Medical Reason [4010F with 1P] Medical Reason for NOT Prescribing: Other Medical Reason - Heart Failure (Beta-elder Therapy) Quality Measure: Heart Failure Left Ventricular Systolic Function: LV Ejection Fraction less than 40% [3021F] Beta-Elder Therapy for LVEF < 40%: <Beta-Elder Therapy Prescribed> [G0950] - Advance Directives Quality Measure: Measure #47: Care Plan Advance Directives Established: No Advance Directives Information Provided To Patient: No Advance Directives on File: No Advance Care Planning: <Care Plan/Decision Maker Documented; Discussed & Do cumented> [1123F] - Elder Abuse Suspicion Index Screening: Elder Abuse Suspicion Index Screening Rely on people for bathing, dressing, shopping, banking, etc: Yes Prevented from getting food, clothes, medication, etc: No Made to feel shamed or threatened by someone: No Forced to sign papers or use money against will: No Feel afraid, touched in ways not wanted or hurt physically: No Poor eye contact, withdrawn, malnourished, cuts or bruises: No Screening Result: Negative result EASI Reference Information: Antonella GLORIA, Sisi C, Abdullahi D, Araceli Trujillo.Development and validation of a tool to assist physicians identification of elder abuse: The Elder Abuse Suspicion Index (EASI ). Journal of Elder Abuse and Neglect, 2008; 20 (3): 276-300. - Elder Maltreatment Screen Quality Measures: Elder Maltreatment Screen and Follow-Up Plan Elder Maltreatment Screen: <Negative, No Follow-Up Plan Required> [G5971]
[2019-02-01] MEDS: SERTRALINE HCL 50 MG TABLET PO SCH (09:33)
[2019-02-01] MEDS: CYANOCOBALAMIN (VITAMIN B-12) 100 MCG TABLET PO SCH (09:33)
[2019-02-01] MEDS: METOPROLOL SUCC 25 MG TAB.ER PO SCH (09:34)
[2019-02-01] MEDS: FUROSEMIDE 40 MG TABLET PO SCH (09:34)
[2019-02-01 09:35] LABS: INR 2.4; PROTHROMBIN TIME (PATIENT) 23.6 SECONDS (9.5-12.1)
[2019-02-01] MEDS: FOLIC ACID 1 MG TABLET PO SCH (09:35)
[2019-02-01] MEDS: POTASSIUM CHLORIDE 10 MEQ TAB PO SCH (09:35)
[2019-02-01] MEDS: DANAZOL 200 MG MC SCH (09:36)
[2019-02-01] MEDS: POLYETHYLENE GLY 17 GM PACKET PO SCH (09:36)
[2019-02-01] MEDS: PROMACTA 75 MG MC SCH (09:36)
[2019-02-01 09:52] LABS: ABSOLUTE NEUTROPHIL COUNT 3.05; WHITE BLOOD COUNT W/O DIFF 6.1 K/uL (4.2-12.2)
[2019-02-01 09:53] LABS: HEMOGLOBIN 8.3 gm/dl (11.6-16.0); MEAN CELL VOLUME 90.6 fl (81-97); MEAN CORPUSCULAR HEMOGLOBIN 25.9 pg (27-33); MEAN CORPUSCULAR HGB CONC 28.6 g/dl (32-36); MEAN PLATELET VOLUME 12.7 fl (7.4-10.4); PLATELET COUNT 228 K/uL (130-400); RED CELL DISTRIBUTION WIDTH 22.7 % (11.5-14.5)
[2019-02-01 09:55] LABS: ANISOCYTOSIS 2+; HYPOCHROMIA 2+
--- NOTE | 2019-02-01 10:12 | Rehab Discharge Summary ---
Patient Information - Patient Information Diagnosis: Deconditioning D/T R hip hematoma, s/p R RETA dislocation/reduction Ordered Treatment: OT Evaluate and Treat Surgery: Yes (R RETA 09/2018) History: Detail (Pt lives at [facility], apparently had a fall resulting in RETA dislocation that was reduced in the ED at [facility]. She was admitted for short term rehabilitation.) Past Medical/Surgical Hx: PAST MEDICAL/SURGICAL HISTORY Past Surgical History hyesterectomy tonsils PMH - Respiratory Hx Respiratory Disorders Yes Hx Chronic Obstructive Yes Pulmonary Disease (COPD) PMH - Cardiovascular Hx Cardiovascular Disorders Yes Hx Heart Attack Yes PMH - Neuro Hx Neurological Disorders Yes Hx Cerebrovascular Accident Yes PMH - GI Hx Gastrointestinal Disorders No PMH - Hx Genitourinary Disorders No PMH - Endocrine Hx Endocrine Disorders No PMH - Musculoskeletal Hx Musculoskeletal Disorders No PMH - Psych Hx Psychiatric Problems No PMH - Hematology/Oncology Hx Hematology/Oncology No Disorders Premorbid Status: Detail (Pt lives at [facility]; she states she was not walking since her surgery, but was walking with a walker prior to surgery. Pt reports staff at [facility] assist with all self cares including showering and dressing.) Precautions: [place], Fall, Other (RETA precautions for posterior surgical approach; to wear knee immobilizer when up and hip abduction pillow in bed; WBAT right LE) Objective Data - Pain Pain Present: No - Mental Status Patient Orientation: Person (Pt oriented to self and inconsistently oriented to place. She is pleasant but confused at times and requires verbal cues for activity.) - Visual Perception Deficit (Pt demonstrates decreased vision and she reports she was scheduled to have cataract surgery.) - ROM Within normal limits (Juan R UE AROM WNL) - Strength/Tone Not within normal limits (Pt continues with 4/5 strength throughout. She becomes very easily fatigued with activity.) - Coordination Appears within normal limits for therapeutic activities (WNL although difficult to formally evaluate due to decreased vision.) - Bed Mobility Independent - Transfers Needs Assist (Pt requires contact guarding with sit to stand transfers due to decreased cognition.) - Balance Balance Sitting: Good Balance Standing: Fair - Sensation Intact - Gait Detail (Pt ambulated short distances with 2 wheeled walker and CG assist.) - ADL's/IADL's Detail (Pt inconsistently able to complete dressing, showering and grooming/hygiene tasks due to confusion. She was not able to consistently recall and adhere to total hip precautions.) Therapy Assessment - Therapy Assessment Detail (Pt improved her endurance and functional mobility skills. She continues to require assist with self cares due to cognition.) Problem List - Problem List Physical Therapy Problem List: Detail (1. Requires assist w/bed mobility and transfers. 2. Difficulty walking. 3. Weakness in R hip. 4. History of falls.) Occupational Therapy Problem List: Detail (1. Decreased Ind with total body dressing. 2. Decreased Ind with grooming/hygiene tasks. 3. Decreased Ind with showering. 4. Decreased endurance needed for safe and Ind mobility and self cares.) Goals - Goals Physical Therapy Goals: 1. Pt will be independent with bed mobility.(Goal Met). 2. Pt will be independent with transfers.(Goal Partially Met-supervison for safety). 3. Pt will safely ambulate with front wheeled walker over household distances/surfaces with supervision.(Partially Met-CG for safety). 4. Pt will exhibit 4/5 strength in proximal R LE and weak LE muscles for greater stability w/ambulation.(Goal partially met- hip musculature remains 3- to 3/5.) Occupational Therapy Goals: Goals partially met: 1. Pt will be Ind with total body dressing using adaptive equipment while maintaining total hip precautions. 2. Pt will be Ind with grooming/hygiene tasks. 3. Pt will be Ind with showering in sitting. 4. Pt will demonstrate improved overall endurance needed for safe and Ind ADLs and functional mobility. Prognosis - Prognosis Good Plan - Plan Physical Therapy Plan: Patient discharging to [facility]. Patient to recieve Home OT/PT services. Occupational Therapy Plan: Pt discharging to [facility] and will receive home OT/PT services.
== END 2019-02-01 10:25 | DRG 604 ==
LOC: UNDOADMIN 18:36 → MEDSURG 18:36
PROVIDERS: ADMIT Internal Medicine; ATTEND Internal Medicine
DX: S70.01XA Contusion of right hip, initial encounter (principal); I63.9 Cerebral infarction, unspecified; I50.42 Chronic combined systolic (congestive) and diastolic (congestive) heart failure; I82.502 Chronic embolism and thrombosis of unspecified deep veins of left lower extremity; N39.0 Urinary tract infection, site not specified; Z96.641 Presence of right artificial hip joint; Z86.2 Personal history of diseases of the blood and blood-forming organs and certain disorders involving the immune mechanism; Z79.01 Long term (current) use of anticoagulants; E03.9 Hypothyroidism, unspecified; I25.10 Atherosclerotic heart disease of native coronary artery without angina pectoris; F03.90 Unspecified dementia, unspecified severity, without behavioral disturbance, psychotic disturbance, mood disturbance, and anxiety; I50.9 Heart failure, unspecified; J44.9 Chronic obstructive pulmonary disease, unspecified; F32.9 Major depressive disorder, single episode, unspecified; D64.9 Anemia, unspecified; Z66 Do not resuscitate
CPT/HCPCS: 80048; 80053; 81001; 82310; 82728; 83010; 83550; 83615; 85027; 85044; 85610; 87493; 97110; 99306; 99309; 99316; J7512

== ENCOUNTER 2019-02-09 04:40 | Emergency (ER) | payer MEDICARE ==
--- NOTE | 2019-02-09 04:47 | Emergency Department Record ---
History of Present Illness - General Stated Complaint: FALL Time Seen by Provider: 02/09/19 04:42 Source: EMS Mode of Arrival: EMS Limitations: Other - History of Present Illness Initial Comments: 88 yo female presents to ED following a fall from bed. Patient is unable to provide history due to dementia, EMS reports laceration over the left eyebrow. Patient complains of right hip pain on examination, does take Coumadin for unknown reason. ? LOC due to unwitnessed fall. Complaint: Fall -: Unknown Fall From: Out of bed When Fall Occurred: Unsure Fall Witnessed: No Place Fall Occurred: Home Loss of Consciousness: Unsure Prolonged Down Time?: Unclear Symptoms Prior to Fall: None Location: Head - Eliel Coma Scale Eye Response: (4) Open spontaneously Motor Response: (6) Obeys commands Verbal Response: (5) Oriented [place] Total: 15 - Related Data Home Medications Medication Instructions Recorded Confirmed Last Taken Eltrombopag Olamine [Promacta] 50 mg PO DAILY 02/09/19 02/09/19 1 Day Ago ~02/08/19 Warfarin Sodium [Coumadin] 4 mg PO [id number] 02/09/19 02/09/19 1 Day Ago ~02/08/19 Previous Rx's Medication Instructions Recorded Prednisone [Prednisone 1Mg] 2.5 mg PO DAILYWM 14 Days #35 02/01/19 tablet Zinc Oxide [Desitin] 10 gm TOP ASDIR PRN tube 02/01/19 Allergies Allergy/AdvReac Type Severity Reaction Status Date / Time No Known Drug Allergies Allergy Verified 02/09/19 05:00 Review of Systems ROS unobtainable: Other (Due to dementia) Past Medical History - SOCIAL HISTORY Smoking Status: Never smoker - RESPIRATORY Hx Respiratory Disorders: Yes Hx COPD: Yes - CARDIOVASCULAR Hx Cardio Disorders: Yes Hx Heart Attack: Yes - NEURO Hx Neuro Disorders: Yes Hx CVA: Yes - GI Hx GI Disorders: No - Hx Genitourinary Disorders: No - ENDOCRINE Hx Endocrine Disorders: No - MUSCULOSKELETAL Hx Musculoskeletal Disorders: No - PSYCH Hx Psych Problems: No - HEMATOLOGY/ONCOLOGY Hx Hematology/Oncology Disorders: No Family Medical History Hx Dementia: Father, Brother/Sister Hx Diabetes: Grandparents Hx Heart Disease: Father Physical Exam - General General Appearance: Alert, Oriented x3, Cooperative, Mild distress Limitations: Other (Dementia) - Head Head exam detail: Laceration (2.0 cm laceration to the left eyebrow on exmaination, bleeding controlled.). negative: Abrasion, Contusion, Malcolm's sign, General tenderness, Hematoma - Eye Eye exam: Normal appearance. negative: Conjunctival injection, Periorbital swelling, Periorbital tenderness, Scleral icterus - ENT Ear exam: negative: Auricular hematoma, Auricular trauma Nasal Exam: negative: Active bleeding, Discharge, Dried blood, Foreign body Mouth exam: negative: Drooling, Laceration, Muffled voice, Tongue elevation - Neck Neck exam: Other (Cervical collar in place) - Respiratory Respiratory exam: Normal lung sounds bilaterally. negative: Rales, Respiratory distress, Rhonchi, Stridor - Cardiovascular Cardiovascular Exam: Regular rate, Normal rhythm, Normal heart sounds - GI/Abdominal GI/Abdominal exam: Soft. negative: Rebound, Rigid, Tenderness - Rectal Rectal exam: Deferred - exam: Deferred - Extremities Extremities exam: Tenderness (TTP over chris proximal right hip on examination). negative: Calf tenderness, Pedal edema - Back Back exam: Denies: CVA tenderness (R), CVA tenderness (L) - Neurological Neurological exam: Alert, Oriented X3 - Psychiatric Psychiatric exam: Normal affect, Normal mood - Skin Skin exam: Normal color. negative: Abrasion Type of lesion: negative: abrasion Course - Reevaluation(s) Reevaluation #1: 02/09/19 05:03 Procedure note: 3.0 cm vertical laceration to the left supra-orbital region, bleeding controlled. Wound was cleaned and prepped in sterile fashion, no residual FB identified on examination. Wound was anesthetized with 1.5 mL of 1% Lidocaine with epinephrine with good anesthesia, and the laceration was repaired with 5-0 Prolene sutures in interrupted fashion (#5). Patient tolerated the procedure well without complications. Procedure Note: 3.0 cm horizontal laceration to the left supra-orbital region, bleeding controlled. Wound was cleaned and prepped in sterile fashion, no residual FB identified on examination. Wound was anesthetized with 1.5 mL of 1% Lidocaine with epinephrine with good anesthesia, and the laceration was repaired with 5-0 Prolene sutures in interrupted fashion (#5). Patient tolerated the procedure well without complications. Laboratory studies were reviewed and appear grossly unremarkable for an acute process except for the following: Hgb 9.2 (improved from 02/01) INR: 8.8 CT Brain: No acute intracranial hemorrhage CT Cervical Spine: No acute cervical fracture CT Abdomen/Pelvis: Findings concerning for Duvall-Lakshmi lesion of the right hip Significant blood may be present IVC filter failure Old rib fractures/right pelvic fractures Reevaluation #2: 02/09/19 05:36 Preliminary review of patient's CT imaging does not reveal evidence for acute, life-threatening bleeding Vitamin K ordered SQ per warfarin CHEST guidelines. 02/09/19 06:48 Call placed to [facility] 1-call for Trauma Consultation, likely transfer for further evaluation. Reevaluation #3: 02/09/19 06:53 Case was discussed with Dr. Chanel and Dr. Lind, will accept transfer for further evaluation. Medical Decision Making - Lab Data Result diagrams: 02/09/19 04:38 02/09/19 04:38 Critical Care Time Critical Care Time: Yes Total Critical Care Time: 60 Critical Care Time: Diagnosis and treatment for Level 1 Trauma activation, reversal of supra- therapeutic INR with vitamin K and K-centra, multiple CT imaging studies to exclude acute traumatic injuries and diagnosis of Duvall-Lakshmi lesion of the right hip, laboratory interpretation. Disposition Disposition: Transfer Clinical Impression: Fall from bed, initial encounter, Anticoagulation excessive, Duvall Lakshmi lesion Laceration of forehead Qualifiers: Encounter type: initial encounter Qualified Code(s): S01.81XA - Laceration without foreign body of other part of head, initial encounter Disposition: Acute Care Hospital Transfer Transfer To: [facility] Reason For Transfer: Fall with anticoagulation Accepting Physician: Darío Lind Time Discussed w/Accepting Physician: 06:56 Condition: (2) Stable Additional Instructions: Return to ED if your symptoms worsen or if you have any concerns. Follow-up with your family doctor in 3-5 days as directed. Sutures out in 7-10 days as directed. Time of Disposition: 06:56 Quality - Quality Measures Quality Measures: N/A, Blunt Head Trauma (>2yr) - [place] Coma Scale Eliel Coma Scale: [place] Coma Scale Eye Response: (4) Open spontaneously Motor Response: (6) Obeys commands Verbal Response: (5) Oriented [place] Total: 15 - Blunt Head Trauma - Adult Quality Measure: Measure #415: Utilization of CT for Minor Blunt Head Trauma ICD10 Codes Entered: Yes Was CT ordered: Yes Does Patient Have Any of the Following: No Exclusions Patient Presented Within 24 Hours of Injury: Yes Eliel Score: [address] for Minor Blunt Head Trauma: < CT Done, Appropriate Indication > [G9529] Additional Inclusion Criteria: Within 24hrs (AND) GCS of 15 (AND) CT ordered. [G9530] Indications For CT: Age 65 Years and Older, Coagulopathy - Blood Pressure Screening Does Patient Have Any of the Following: Active Dx of HTN Blood Pressure Classification: Pre-Hypertensive BP Reading Systolic Measurement: 124 Diastolic Measurement: 81 Screening for High Blood Pressure: Patient Exclusion, Hx of HTN [G9054]
[2019-02-09 04:52] LABS: ABSOLUTE NEUTROPHIL COUNT 4.27; HEMATOCRIT 31.6 % (35.0-47.0); HEMOGLOBIN 9.2 gm/dl (11.6-16.0); MEAN CELL VOLUME 88.3 fl (81-97); MEAN CORPUSCULAR HGB CONC 29.1 g/dl (32-36); PLATELET COUNT 265 K/uL (130-400); RED BLOOD COUNT 3.58 M/uL (3.80-5.40); RED CELL DISTRIBUTION WIDTH 23.7 % (11.5-14.5); WHITE BLOOD COUNT W/O DIFF 8.3 K/uL (4.2-12.2)
[2019-02-09 04:53] LABS: MEAN CORPUSCULAR HEMOGLOBIN 25.6 pg (27-33)
[2019-02-09 04:59] LABS: ANISOCYTOSIS 1+
[2019-02-09 05:03] LABS: CREATININE 1.5 mg/dL (0.5-0.9)
[2019-02-09 05:10] LABS: INR 8.8; PROTHROMBIN TIME (PATIENT) 81.7 SECONDS (9.5-12.1)
[2019-02-09] MEDS ORDERED: PHYTONADIONE 10 MG/ML AMPUL SQ ONE (05:35)
[2019-02-09] MEDS ORDERED: KCENTRA (PCC) 1,000 UNIT KIT IV ONE (06:53)
--- NOTE | 2019-02-10 05:48 | CT SCAN REPORT ---
EXAM: CT SCAN HEAD WO CONTRAST HISTORY: FALL. LACERATION OVER LEFT EYE. TECHNIQUE: Routine noncontrast CT of the brain. COMPARISON: CT brain without contrast dated 12/18/2018. FINDINGS: The subarachnoid spaces remain dilated consistent with age-related atrophy. The ventricles are not grossly enlarged. There are small areas of encephalomalacia redemonstrated in the left parietal convexity and in each occipital lobe. These are unchanged. Additionally, there are white matter lucencies scattered in each cerebral hemisphere, the pattern of which is stable. These are nonspecific but likely areas of chronic microvascular ischemia. An old lacunar infarct is again suggested in the superior left thalamus. No other area of abnormally increased or decreased attenuation is noted throughout the brain substance. No abnormal extra-axial fluid collection is seen. No skull fracture is identified. There is a retention cyst within the floor of the right maxillary sinus. There is mucosal thickening and a few ethmoid air cells in the inferior aspect of the left frontal sinus. There is opacification of a few inferior mastoid air cells bilaterally consistent with nonspecific effusions. There is left supraorbital soft tissue swelling. Soft tissue emphysema is noted in this region suggesting laceration. No foreign body. There is redemonstration of atherosclerotic calcification of the distal vertebral arteries and distal internal carotid arteries. IMPRESSION: 1. NO CT EVIDENCE OF AN ACUTE INTRACRANIAL ABNORMALITY NOR SKULL FRACTURE. 2. ATROPHY REDEMONSTRATED. OLD CORTICAL INFARCTS REDEMONSTRATED WITHIN THE LEFT PARIETAL LOBE WELL BOTH OCCIPITAL LOBES. WHITE MATTER LUCENCIES IN EACH CEREBRAL HEMISPHERE REDEMONSTRATED, CONSISTENT WITH MICROVASCULAR ISCHEMIA. 3. LEFT SUPRAORBITAL SOFT TISSUE SWELLING WITH ASSOCIATED LACERATION. NO FOREIGN BODY. 4. RETENTION CYST WITHIN THE RIGHT MAXILLARY SINUS. J[facility]BER: [id number] [facility]
--- NOTE | 2019-02-10 06:34 | CT SCAN REPORT ---
EXAM: CT SCAN ABDOMEN/PELVIS WO CONTRAST HISTORY: FALL. UPPER THIGH PAIN. TECHNIQUE: Helical CT examination of the abdomen and pelvis is performed without oral or intravenous contrast administration. COMPARISON: None. FINDINGS: Mild dependent atelectasis is demonstrated in each lung base. No pleural or pericardial effusion. The heart is enlarged. There is mild calcification of the mitral annulus. Mild to moderate calcification of the aortic valve. There are fracture deformities involving the old healed fracture deformities of the posterolateral right sixth, seventh, eighth, and tenth ribs. There are also fracture deformities involving the anterolateral aspects of the right sixth, seventh, eighth, and ninth ribs. These are likely subacute to chronic. No suspicious focal abnormality demonstrated within the liver, spleen, pancreas, right adrenal gland, nor kidneys. The left adrenal gland appears slightly prominent in size though maintains its chevron shape likely relating to hyperplasia. The gallbladder is unremarkable and no biliary ductal dilatation is seen. There is diffuse atherosclerosis without aneurysmal dilatation of the abdominal aorta nor iliac arteries. An IVC filter is in place with its tip at the level of the renal veins. One of the left lateral struts extends to the right posterolateral wall of the atherosclerotic abdominal aorta. The IVC above the tip of the filter is noted to be small in caliber. Evaluation of the inferior pelvis is limited by beam-hardening artifact from right hip prosthesis. No definite pelvic mass, lymphadenopathy, or free pelvic fluid. No intrinsic urinary bladder abnormality. There is an uncomplicated, primarily fat-containing left inguinal hernia. No gross bowel dilatation nor bowel wall thickening. There is mild diverticulosis of the distal colon without evidence of diverticulitis. The appendix is visualized and normal in appearance. There is apparent mild wall thickening of the posterior aspect of the gastric body and fundus likely due to incomplete distention. The uterus is likely surgically absent. Total right hip arthroplasty changes identified. There are healing/healed fractures of the right inferior pubic ramus and right ischial tuberosity. An old healed fracture of the proximal right superior ramus is possible. Mild thoracolumbar scoliosis. There is grade 1 anterolisthesis of L4 on L5. This likely is the result of advanced facet arthropathy. Multilevel degenerative changes are present. Multilevel neural foraminal narrowing is suggested most pronounced at the L4-L5 level on the right where it is moderate to severe. There is an incompletely imaged fluid collection within the lateral proximal right thigh and inferolateral right gluteal region adjacent to the greater trochanter of the femur. This measures at least 8 cm in oblique AP diameter. Acute hemorrhage would be difficult to exclude. This may relate to a post- traumatic lesion (Duvall Lakshmi lesion). IMPRESSION: 1. NO CT EVIDENCE OF ACUTE VISCERAL INJURY. 2. MULTIPLE SUBACUTE TO CHRONIC RIGHT RIB FRACTURES. 3. OLD FRACTURE DEFORMITIES OF THE RIGHT INFERIOR PUBIC RAMUS AND RIGHT ISCHIAL TUBEROSITY. OLD HEALED FRACTURE OF THE PROXIMAL RIGHT SUPERIOR PUBIC RAMUS IS POSSIBLE. 4. TOTAL RIGHT HIP ARTHROPLASTY. 5. INCOMPLETELY IMAGED FLUID COLLECTION ADJACENT TO THE POSTEROLATERAL MARGIN OF THE PROXIMAL RIGHT FEMUR, DISCUSSED ABOVE. IF CLINICALLY WARRANTED, THIS COULD BE FURTHER EVALUATED WITH CT EXAMINATION OF THE RIGHT LOWER EXTREMITY. 6. LEFT INGUINAL HERNIA. 7. COLONIC DIVERTICULOSIS WITHOUT EVIDENCE OF DIVERTICULITIS. 8. IVC FILTER IN PLACE, DISCUSSED ABOVE. 9. MILD THICKENING OF THE LEFT ADRENAL GLAND LIKELY DUE TO HYPERPLASIA. 10. MILD DEPENDENT ATELECTASIS IN EACH LUNG BASE. CARDIOMEGALY. 11. NOT MENTIONED ABOVE ARE BENIGN-APPEARING CALCIFICATIONS SCATTERED WITHIN THE CENTRAL LEFT BREAST. 12. NOT MENTIONED ABOVE IS POSSIBLE CYSTOCELE. JOB NUMBER: [id number] [facility]
--- NOTE | 2019-02-10 07:17 | CT SCAN REPORT ---
EXAM: CT OF THE CERVICAL SPINE WITHOUT CONTRAST HISTORY: PAIN POST FALL. TECHNIQUE: Thin collimation helical CT examination of the cervical spine was performed in the axial plane without intravenous contrast. Coronal and sagittal reformatted images are generated and reviewed. Comparison: CT of the cervical spine without contrast dated 12/18/18. FINDINGS: Diffuse osteopenia is redemonstrated. The vertebral bodies are grossly normal in alignment and height. The craniocervical and cervicothoracic junctions are intact. No acute fracture, destructive bone lesion or prevertebral soft tissue swelling. Mild multilevel degenerative disk/degenerative end plate changes are present. No osseous cervical spinal stenosis. Mild neural foraminal narrowing at multiple levels redemonstrated due to degenerative disease. There is opacification of a few inferior mastoid air cells bilaterally consistent with nonspecific effusions. Biapical lung scarring. Old fractures of several upper ribs on the right redemonstrated. No new cervical mass nor adenopathy. Mild atherosclerotic calcification of the carotid bifurcations. IMPRESSION: 1. NO ACUTE FRACTURE, SUSPICIOUS SUBLUXATION OR PREVERTEBRAL SOFT TISSUE SWELLING WITHOUT SIGNIFICANT CHANGE IN APPEARANCE OF THE CERVICAL SPINE SINCE 12/18/18. 2. MULTILEVEL DEGENERATIVE CHANGES, PRIMARILY MILD IN DEGREE REDEMONSTRATED. J[facility]BER: [id number] [facility]
== END 2019-02-09 07:46 | disposition short-term general hospital (02) ==
LOC: ER 04:40
DX: D68.32 Hemorrhagic disorder due to extrinsic circulating anticoagulants (principal); T45.515A Adverse effect of anticoagulants, initial encounter; S01.112A Laceration without foreign body of left eyelid and periocular area, initial encounter; S70.01XA Contusion of right hip, initial encounter; M54.2 Cervicalgia; M25.551 Pain in right hip; J44.9 Chronic obstructive pulmonary disease, unspecified; I10 Essential (primary) hypertension; I25.2 Old myocardial infarction; F03.90 Unspecified dementia, unspecified severity, without behavioral disturbance, psychotic disturbance, mood disturbance, and anxiety; W06.XXXA Fall from bed, initial encounter; Y92.122 Bedroom in nursing home as the place of occurrence of the external cause
CPT/HCPCS: 12013 ×2; 99291 ×2; 96374; 96372; 85610; 80048; 85027; 72125; 70450; 74176; C9132; G0390

== ENCOUNTER 2019-02-16 10:57 | Inpatient (IN) | payer MEDICARE ==
[2019-02-18] MEDS ORDERED: ZINC OXIDE 28.35 GM TUBE TOP PRN (10:03)
[2019-02-18] MEDS: DANAZOL 200 MG PO SCH (16:00)
[2019-02-18] MEDS: PROMACTA 75 MG PO SCH (16:00)
[2019-02-18] MEDS: APIXABAN 2.5MG TABLET PO SCH (21:21)
[2019-02-18] MEDS: ATORVASTATIN 20 MG TABLET PO SCH (21:21)
[2019-02-19] MEDS: LEVOTHYROXINE SODIUM 50 MCG TABLET PO SCH (07:39)
--- NOTE | 2019-02-19 07:53 | Swing Bed Certification/Recert ---
Initial Certification Due: 02/18/19 14 Day Re-Cert Due: 03/04/19 44 Day Re-Cert Due: 04/03/19 74 Day Re-Cert Due: 05/03/19 CERTIFICATION CERTIFICATION OF PATIENT ADMISSION Required at time of admission. Due: 02/18/19 I certify that SNF services are required to be given on an inpatient basis because of the above named patient's need for half-way care on a continuing basis for the condition(s) for which he/she was receiving inpatient hospital services prior to his/her transfer to the SNF. The patient's current needs for skilled care includes: [] EVERTON CRUZ, N.P. 02/19/19
--- NOTE | 2019-02-19 07:53 | History & Physical ---
History of Present Illness - Date Date of Service for History & Physical: 02/19/19 - History of Present Illness Admitting Diagnosis: Deconditioning d/t hip displacement History of Present Illness: Delano Sousa is an 88 y.o. F who was admitted to the [facility] for PT/OT d/t physical deconditioning. She recently discharged from the [facility] on 02/01/19 back to the assisted living facility ([facility]) where she has been living. Since d/c, she has had 2 hospitalizations at [facility]. She was admitted from 02/09/19 to 02/12/19 after a fall, had right hip hematoma, forehead laceration. She was discharged back to [facility] on 02/12/19. She then had another fall which resulted in a right hip dislocation. She then returned to [facility] and was inpatient there from 02/13/19 to 02/17/19. PMHx: DVT in LLE, Anemia, Autoimmune hemolytic anemia, ITP, HTN, HLD, hypothyroidism, Murmur, Alzheimer's disease, depression, acute CVA, PCP: Dr. Gracia 02/19/19 1230 Pt is sitting up in recliner chair. She is alert and appropriate. She denies having any pain. Denies sleep difficulties. Verified with pt's son that she signs her own DNR paperwork for which son agreed. DNR form signed by pt with witness present. She reports that she would like to get back home. Staff reports that she will c/o dizziness occasionally. General - Cognitive Patterns Orientation: Responds to Name, Recognizes Familiar Faces or Places - Communication Preferred Language?: Grenadian Cutter Down Required: No Level of Education: College Preferred Method of Learning: Doing Comprehension Ability: Impairment Able to Read: No (Cataract surgery needed) Able to Write: No Select best description of speech pattern: Clear Speech Ability to express ideas and wants: Usually Understood Understanding verbal content: Understands - Psychosocial Well-Being Usual Living Arrangement: Other Living Arrangement Comment: [facility] - Dental Status Unable to examine: No Broken or loosely fitting full or partial dentures: No No natural teeth or tooth fragment(s) (edentulous): No Abnormal mouth tissue (ulcers, masses, oral lesions, etc.): No Obvious or likely cavity or broken natural teeth: No Inflamed or bleeding gums or loose natural teeth: No Mouth/facial pain, discomfort or difficulty chewing: No - Nutrition Screening Poor oral intake > 1 week: No Unplanned weight loss in specified time frame: No Nutrition Support via tube feedings or parenteral nutrition: No Pressure Ulcer: Yes Significantly underweight define as BMI <18.5 kg/m2: No Albumin <2.5mg/dL: No Persistent nausea/vomiting/diarrhea >3 days: No Difficulty chewing/swallowing/mouth sores: No Admitting Diagnosis: No Nutrition Risk Score: High Risk Review of Systems Reviewed: No additional complaints except as noted below Constitutional: Reports: Weakness Respiratory: Denies: Dyspnea, Wheezes Cardiovascular: Denies: Chest pain Gastrointestinal: Denies: Abdominal pain, Constipation, Nausea Musculoskeletal: Denies: Back pain Neurological: Denies: Headache Psychiatric: Denies: Anxiety Past Medical History - SOCIAL HISTORY Smoking Status: Never smoker Alcohol Use: None - SURGICAL HISTORY Past Surgical History: hysterectomy. tonsils - RESPIRATORY Hx Respiratory Disorders: Yes Hx COPD: Yes - CARDIOVASCULAR Hx Cardio Disorders: Yes Hx Heart Attack: Yes - NEURO Hx Neuro Disorders: Yes Hx CVA: Yes - GI Hx GI Disorders: No - Hx Genitourinary Disorders: No - ENDOCRINE Hx Endocrine Disorders: No Hx Thyroid Disease: Yes (hypo) Comment:: autoimmune hemolytic anemia, ITP - MUSCULOSKELETAL Hx Musculoskeletal Disorders: No Comment:: deconditioning - PSYCH Hx Psych Problems: No - HEMATOLOGY/ONCOLOGY Hx Hematology/Oncology Disorders: No Family Medical History Any Significant Family History?: No Hx Dementia: Father, Brother/Sister Hx Diabetes: Grandparents Hx Heart Disease: Father H&P Meds/Allergies - Allergies Allergies: Allergies Allergy/AdvReac Type Severity Reaction Status Date / Time No Known Drug Allergies Allergy Verified 02/09/19 05:00 - Home Medications Previous Rx's Medication Instructions Recorded Prednisone [Prednisone 1Mg] 2.5 mg PO DAILYWM 14 Days #35 02/01/19 tablet Zinc Oxide [Desitin] 10 gm TOP ASDIR PRN tube 02/01/19 - Active Medications Active Medications: Current Medications Acetaminophen (Tylenol 500mg Tab) 500 mg PO Q6H PRN PRN Reason: PAIN - MILD (1-4) Apixaban (Eliquis) 2.5 mg PO BID [facility] Last Admin: 02/18/19 21:21 Dose: 2.5 mg Documented by: Atorvastatin Calcium (Lipitor) 40 mg PO QHS [facility] Last Admin: 02/18/19 21:21 Dose: 40 mg Documented by: Calcium/Vitamin D (Calcium 500+D Tablet) 2 tab PO DAILY ADRIEL Folic Acid () 1 mg PO DAILY ADRIEL Levothyroxine Sodium (Synthroid) 50 mcg PO DAILYTHY [facility] Last Admin: 02/19/19 07:39 Dose: 50 mcg Documented by: Metoprolol Succinate (Toprol Xl) 12.5 mg PO DAILY ADRIEL Patient Own Med: (Danazol 200 Mg) 1 each PO DAILY ADRIEL Last Admin: 02/18/19 16:00 Dose: 1 each Documented by: Patient Own Med: (Promacta 75 Mg) 1 each PO DAILY ADRIEL Last Admin: 02/18/19 16:00 Dose: 1 each Documented by: Potassium Chloride (Klor-Con) 10 meq PO DAILY ADRIEL Sertraline HCl (Zoloft) 50 mg PO DAILY ADRIEL Zinc Oxide (Desitin) 10 gm TOP ASDIR PRN PRN Reason: RASH Physical Exam - Vital Signs Vital Signs: Vital Signs - Last 24 Hrs Temp Pulse Resp BP Pulse Ox 02/18/19 20:00 98.1 F 96 H 16 127/66 96 02/18/19 13:55 98.1 F 107 H 16 119/68 96 - General General Appearance: Alert, Cooperative, No acute distress - Head Head exam detail: Abrasion (above left eye), Contusion (above left eye) - Respiratory Respiratory exam: Normal lung sounds bilaterally - Cardiovascular Cardiovascular Exam: Regular rate, Normal rhythm - GI/Abdominal GI/Abdominal exam: Soft, Normal bowel sounds - Psychiatric Psychiatric exam: Normal affect, Normal mood - Skin Skin exam: Dry Discharge Potential - Discharge Needs Community Services Used Prior to Admission: Home Health Nurse Patient Discharge Plan Description: AFC/Assisted Living Community Services Needed at Discharge: Home Health Nurse, Occupational Therapy, Physical Therapy Plan - [facility] Certification Initial Certification Due: 02/18/19 14 Day Re-Cert Due: 03/04/19 44 Day Re-Cert Due: 04/03/19 74 Day Re-Cert Due: 05/03/19 - Detailed Diagnosis and Plan (1) Physical deconditioning Current Visit: Yes Status: Acute Base Code: R53.81 - OTHER MALAISE Comment: 02/19/19 - 2/2 to right hip pain from recent total hip replacement with complication of dislocation and hematoma after multiple falls - Difficulty with transfering from wheelchair and is an assist with ambulation. - PT/OT evaluation (2) Dizziness Current Visit: Yes Status: Acute Base Code: R42 - DIZZINESS AND GIDDINESS Comment: 02/19/19 -DDx: Medication related (Promacta, Sertraline, Metoprolol) vs. CAD vs. ? -Trial decrease in Sertraline from 50mg to 25mg daily as this could be attributing to dizziness -Orthostatic BPs weekly (3) CAD (coronary artery disease) Current Visit: No Status: Acute Base Code: I25.10 - ATHSCL HEART DISEASE OF [place] CORONARY ARTERY W/O ANG PCTRS Comment: 02/01/19: - Hx of NSTEMI - Continue with BB, Nitrostat. Not on statin or ASA. 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 - Warfarin held 2/2 hematoma formation. - Ordered PT/INR, resuming Warfarin 30mg daily. (6) Depression Current Visit: Yes Status: Chronic Base Code: F32.9 - MAJOR DEPRESSIVE DISORDER, SINGLE EPISODE, UNSPECIFIED Comment: 02/19/19 -Trial decrease in Zoloft from 50mg to 25mg daily to see if depression symptoms are managed while decreasing dizziness complaints (7) Systolic and diastolic CHF, chronic Current Visit: No Status: Chronic Base Code: I50.42 - CHRONIC COMBINED SYSTOLIC AND DIASTOLIC HRT FAIL Comment: 02/19/19 - Reported EF 45-50% - Continue Metoprolol 12.5mg daily, Lasix 40mg daily and K+ 10meq daily (8) Anticoagulated Current Visit: Yes Status: Acute Base Code: Z79.01 - FDC (CURRENT) USE OF ANTICOAGULANTS Comment: 02/19/19 -Continue Eliquis 2.5mg PO BID
--- NOTE | 2019-02-19 10:55 | Rehab Evaluation ---
Patient Information - Patient Information Diagnosis: Deconditioning d/t hip displacement Ordered Treatment: PT Evaluate and Treat Status: Initial Evaluation Past Medical/Surgical Hx: PAST MEDICAL/SURGICAL HISTORY Past Surgical History hysterectomy tonsils PMH - Respiratory Hx Respiratory Disorders Yes Hx Chronic Obstructive Yes Pulmonary Disease (COPD) PMH - Cardiovascular Hx Cardiovascular Disorders Yes Hx Deep Vein Thrombosis Yes: s/p IVC filter Hx Heart Attack Yes Comment: CAD, EF 45-50% PMH - Neuro Hx Neurological Disorders Yes Hx Cerebrovascular Accident Yes Hx Dementia Yes PMH - GI Hx Gastrointestinal Disorders No PMH - Hx Genitourinary Disorders No PMH - Endocrine Hx Endocrine Disorders No Hx Thyroid Disease Yes: hypo Comment: autoimmune hemolytic anemia, ITP PMH - Musculoskeletal Hx Musculoskeletal Disorders No Comment: deconditioning PMH - Psych Hx Psychiatric Problems No PMH - Hematology/Oncology Hx Hematology/Oncology No Disorders Premorbid Status: Detail (The patient prior to recent hospital admission was a resident of [facility]. Patient was experiencing frequent falls.Pt. reports [facility] was assisting with all self care including showering and dressing. Pt. reports she was ambulating "a little"/) Precautions: [place], Fall, Other (T THR precautions.) - Time With Patient Total Time Spent With Patient (Min): 30 Treatment Procedures: Detail (Initial Evalution, minimal complexity.) Subjective Information - Subjective Information Per Patient (The patient was not complaining of R hip pain sitting but did complain of minimal pain when ambulating. The patient did not rate her pain using the 0-10 pain scale.) Objective Data - Mental Status Patient Orientation: Oriented x3 (The patient knew her birthday, current month and year. Patient did not know her age or place. Pt. stated she was in [facility].) - ROM Not within normal limits (The patient's R hip was within total hip precautions.) - Strength/Tone Not within normal limits (The patient's R LE strength is as follows: hip flexors 3+/5, hip extensors, abductors were 3-/5, hip adductors 3+/5,knee extensors 4/5, knee flexors 4-/5, ankle musculature was 4/5. L LE was generally 4+ to 5/5.) - Transfers Independent (The patient is independent with sit to and from stand transfers with verbal cues to reach back to the chair.) - Balance Balance Sitting: Good (The patient is able to sit unsupported but leans to the R.) Balance Standing: Fair (The patient tends to lean back and to the R when standing. The patient requires support of walker to stand.) - Gait Detail (The patient ambulated with front wheeled walker a distance of 46 feet x 1 with CG of 1 for safety. The patient's gait pattern is charecterized by forward trunk flexion and decreased wt. bearing on R LE.) Therapy Assessment - Therapy Assessment Detail (The patient exhibits decreased R LE strength , decreased balance and requires CG with ambulation due to unsteadiness with gait. Feel the patient would benefit from PT to improve functional level, improve strength and balance.) Problem List - Problem List Physical Therapy Problem List: Detail (1)Decreased R LE strength 2) Decreased standing balance 3) Impaired ambulation due to THR and decreased R LE strength 4) Assistance with ambulation.) Goals - Goals Physical Therapy Goals: 1) The patient will ambulate with assistive device chau sehold distances with supervision for safety. 2) Will assess the patient's bed mobility. 3)Will assess the patient's balance using an objective balance test. 4) Increase R LE strength 1/3 muscle grade to improve stability of gait. 5)The patient will be independent with all transfers. Prognosis - Prognosis Moderate Plan - Plan Physical Therapy Plan: PT 1-2 times a day M-F for gait training, transfer training, LE strengthening and balance exercises.
[2019-02-19] MEDS: METOPROLOL SUCC 25 MG TAB.ER PO SCH (11:12)
[2019-02-19] MEDS: CALCIUM CARB/VITAMIN D 500MG/200IU PO SCH (11:13)
[2019-02-19] MEDS: POTASSIUM CHLORIDE 10 MEQ TAB PO SCH (11:14)
[2019-02-19] MEDS: ACETAMINOPHEN 500 MG TABLET PO PRN (11:14)
[2019-02-19] MEDS: FOLIC ACID 1 MG TABLET PO SCH (11:15)
[2019-02-19] MEDS: APIXABAN 2.5MG TABLET PO SCH ×2 (11:15→22:46)
[2019-02-19] MEDS: SERTRALINE HCL 50 MG TABLET PO SCH (11:15)
[2019-02-19] MEDS: DANAZOL 200 MG PO SCH (11:15)
[2019-02-19] MEDS: PROMACTA 75 MG PO SCH (11:15)
--- NOTE | 2019-02-19 12:27 | Rehab Evaluation ---
Patient Information - Patient Information Diagnosis: Deconditioning d/t hip displacement Ordered Treatment: OT Evaluate and Treat Status: Initial Evaluation Past Medical/Surgical Hx: PAST MEDICAL/SURGICAL HISTORY Past Surgical History hysterectomy tonsils PMH - Respiratory Hx Respiratory Disorders Yes Hx Chronic Obstructive Yes Pulmonary Disease (COPD) PMH - Cardiovascular Hx Cardiovascular Disorders Yes Hx Deep Vein Thrombosis Yes: s/p IVC filter Hx Heart Attack Yes Comment: CAD, EF 45-50% PMH - Neuro Hx Neurological Disorders Yes Hx Cerebrovascular Accident Yes Hx Dementia Yes PMH - GI Hx Gastrointestinal Disorders No PMH - Hx Genitourinary Disorders No PMH - Endocrine Hx Endocrine Disorders No Hx Thyroid Disease Yes: hypo Comment: autoimmune hemolytic anemia, ITP PMH - Musculoskeletal Hx Musculoskeletal Disorders No Comment: deconditioning PMH - Psych Hx Psychiatric Problems No PMH - Hematology/Oncology Hx Hematology/Oncology No Disorders Premorbid Status: Detail (The patient prior to recent hospital admission was a resident of [facility]. Patient was experiencing frequent falls.Pt. reports [facility] was assisting with all self care including showering and dressing. Pt. reports she was ambulating "a little") Precautions: [place], Fall, Other (R THR precautions.) - Time With Patient Total Time Spent With Patient (Min): 35 Treatment Procedures: Detail ( OT eval LOW) Subjective Information - Subjective Information Per Patient Objective Data - Pain Pain Present: Yes (R hip) - Mental Status Patient Orientation: Person (Patient able to state name, and birthdate but stated she was 85 instead of 88. She knew the current month was February and year was 2018 but said she was located at "[facility] She stated she "gets them all confused.") - Visual Perception Deficit (Pt wears glasses, is in need of cataract surgery.) - ROM Within normal limits (BUE's) - Strength/Tone Not within normal limits (Patient grossly 3+/5 for all shoulder MMT bilaterally but 4/5 for elbow flex and ext.) - Coordination Appears within normal limits for therapeutic activities - Transfers Independent (sit <>stand t/f with verbal cues for hand placement from bedside chair.) - Balance Balance Sitting: Good (but with lateral lean to the right) Balance Standing: Fair (uses 2WW for support) - Sensation Intact - Gait Detail (See PT note) - ADL's/IADL's Detail (Pt able to don short sleeve button down shirt independently and button 3 buttons. Pt would have been able to do all buttons with time. Min A needed for reaching back and threading LUE into sleeve of button up sweater. Dependent pants thread over feet due to hip precautions and no appeals nurse and pull to above knee level. Ind. sit<>stand t/f from chair level to pull pants over hips indpendently. Patient unable to locate zipper or top button of pants for closure. Ind. with brushing teeth in seated position after initial set-up.) Problem List - Problem List Physical Therapy Problem List: Detail (1)Decreased R LE strength 2) Decreased standing balance 3) Impaired ambulation due to THR and decreased R LE strength 4) Assistance with ambulation.) Occupational Therapy Problem List: Detail (1. Min A for UB drsg 2. Weakness BUE's 3. Decreased endurance to safely complete self-care tasks) Goals - Goals Physical Therapy Goals: 1) The patient will ambulate with assistive device household distances with supervision for safety. 2) Will assess the patient's bed mobility. 3)Will assess the patient's balance using an objective balance test. 4) Increase R LE strength 1/3 muscle grade to improve stability of gait. 5)The patient will be independent with all transfers. Occupational Therapy Goals: 1. Independent with UB drsg. 2. Increased endurance to safely complete self care tasks. 3. Grossly 4/5 BUE MMT Prognosis - Prognosis Good Plan - Plan Physical Therapy Plan: PT 1-2 times a day M-F for gait training, transfer tr aining, LE strengthening and balance exercises. Occupational Therapy Plan: OT to see patient 2-4x a week M-F to address UB weakness, decreased endurace for self-care tasks, and decreased indpendence with UB drsg.
--- NOTE | 2019-02-19 16:40 | Physical Therapy Tx Note ---
Physical Therapy Tx Note - Treatment Note Tolerated: Good Total Time Spent With Patient: 15 Physical Therapy Tx Note: Detail (The patient was up in chair when PT arrived. The patient completed the following LE strengthening exercises: hip marching, LAQ, ankle pumps, hamstring curls, hip abduction, hip adductor squeezes and gluteal sets all x 10 reps.) Physical Therapy Problem List: Detail (1)Decreased R LE strength 2) Decreased standing balance 3) Impaired ambulation due to THR and decreased R LE strength 4) Assistance with ambulation.) Physical Therapy Goals: 1) The patient will ambulate with assistive device chau sehold distances with supervision for safety. 2) Will assess the patient's bed mobility. 3)Will assess the patient's balance using an objective balance test. 4) Increase R LE strength 1/3 muscle grade to improve stability of gait. 5)The patient will be independent with all transfers. Physical Therapy Plan: PT 1-2 times a day M-F for gait training, transfer training, LE strengthening and balance exercises.
[2019-02-19] MEDS: ATORVASTATIN 20 MG TABLET PO SCH (22:46)
[2019-02-20] MEDS: LEVOTHYROXINE SODIUM 50 MCG TABLET PO SCH (06:14)
[2019-02-20] MEDS: ACETAMINOPHEN 500 MG TABLET PO PRN (06:49)
[2019-02-20] MEDS: METOPROLOL SUCC 25 MG TAB.ER PO SCH (10:28)
[2019-02-20] MEDS: SERTRALINE HCL 50 MG TABLET PO SCH (10:28)
[2019-02-20] MEDS: CALCIUM CARB/VITAMIN D 500MG/200IU PO SCH (10:28)
[2019-02-20] MEDS: POTASSIUM CHLORIDE 10 MEQ TAB PO SCH (10:30)
[2019-02-20] MEDS: FOLIC ACID 1 MG TABLET PO SCH (10:30)
[2019-02-20] MEDS: APIXABAN 2.5MG TABLET PO SCH ×2 (10:31→23:17)
[2019-02-20] MEDS: DANAZOL 200 MG PO SCH (10:31)
[2019-02-20] MEDS: PROMACTA 75 MG PO SCH (10:31)
[2019-02-20] MEDS: ATORVASTATIN 20 MG TABLET PO SCH (23:14)
[2019-02-21] MEDS: LEVOTHYROXINE SODIUM 50 MCG TABLET PO SCH (07:04)
[2019-02-21] MEDS: VANCOMYCIN HCL 1 GM VIAL PO SCH ×3 (08:56→19:45)
[2019-02-21] MEDS: APIXABAN 2.5MG TABLET PO SCH ×2 (10:12→22:31)
[2019-02-21] MEDS: CALCIUM CARB/VITAMIN D 500MG/200IU PO SCH (10:12)
[2019-02-21] MEDS: FOLIC ACID 1 MG TABLET PO SCH (10:12)
[2019-02-21] MEDS: SERTRALINE HCL 50 MG TABLET PO SCH (10:13)
[2019-02-21] MEDS: DANAZOL 200 MG PO SCH (10:13)
[2019-02-21] MEDS: POTASSIUM CHLORIDE 10 MEQ TAB PO SCH (10:13)
[2019-02-21] MEDS: PROMACTA 75 MG PO SCH (10:13)
[2019-02-21] MEDS: METOPROLOL SUCC 25 MG TAB.ER PO SCH (10:13)
[2019-02-21] MEDS: ATORVASTATIN 20 MG TABLET PO SCH (22:32)
[2019-02-22] MEDS: VANCOMYCIN HCL 1 GM VIAL PO SCH ×3 (03:00→19:00)
[2019-02-22] MEDS: LEVOTHYROXINE SODIUM 50 MCG TABLET PO SCH (07:09)
[2019-02-22] MEDS: CALCIUM CARB/VITAMIN D 500MG/200IU PO SCH (09:33)
[2019-02-22] MEDS: POTASSIUM CHLORIDE 10 MEQ TAB PO SCH (09:34)
[2019-02-22] MEDS: METOPROLOL SUCC 25 MG TAB.ER PO SCH (09:34)
[2019-02-22] MEDS: DANAZOL 200 MG PO SCH (09:34)
[2019-02-22] MEDS: APIXABAN 2.5MG TABLET PO SCH ×2 (09:34→21:33)
[2019-02-22] MEDS: FOLIC ACID 1 MG TABLET PO SCH (09:34)
[2019-02-22] MEDS: SERTRALINE HCL 50 MG TABLET PO SCH (09:34)
[2019-02-22] MEDS: PROMACTA 75 MG PO SCH (09:35)
--- NOTE | 2019-02-22 10:59 | Physical Therapy Tx Note ---
Physical Therapy Tx Note - Treatment Note Tolerated: Fair Total Time Spent With Patient: 25 Physical Therapy Tx Note: Detail (The patient was up in chair when PT arrived. The patient was independent with sit to stand. The patient's balance was tested using Tinetti Assessment Tool and scored 13/28 which is in the high risk for falling category. The patient then ambulated with front wheeled walker with CG of one 35 feet x 1. The patient's gait pattern is charecterized by minimal wt. bearing on R LE and R knee is kept in a flexed postion. The patient had one incident of R knee buckling with weight bearing and became fearful of falling, requesting to sit down. The patient completed the following LE strengthening exercises in sitting: gluteal sets, unilateral hip abduction R and bilateral hip abduction, quad sets, LAQ, resisted hamstring curls, hip adductor squeezes all x 10 reps, standing R knee extension x 5 reps and wt. shifting onto R LE with maximal verbal and tactile cues. The patient became fatigued when completed standing SAQ and requested to sit. The patient was very fearful of falling both when standing for balance test, exercises and with ambulation. The patient continues to present with significant R LE weakness, however gluteus herminia contractions are strong. Gluteus Medius contraction continues to be minimal.) Physical Therapy Problem List: Detail (1)Decreased R LE strength 2) Decreased standing balance 3) Impaired ambulation due to THR and decreased R LE strength 4) Assistance with ambulation.) Physical Therapy Goals: 1) The patient will ambulate with assistive device household distances with supervision for safety. 2) Will assess the patient's bed mobility. 3)Will assess the patient's balance using an objective balance test. ( Goal Met). 4) Increase R LE strength 1/3 muscle grade to improve stability of gait. 5)The patient will be independent with all transfers. Physical Therapy Plan: PT 1-2 times a day M-F for gait training, transfer training, LE strengthening and balance exercises.
--- NOTE | 2019-02-22 14:52 | Occupational Therapy Tx Note ---
Occupational Therapy Tx Note - Treatment Note Tolerated: Good (S: Pt tolerated Tx well, limited by general weakness/decon ditioning. Verbalizes 1/3 hip precautions. O: OT donned iso precaution gown/gloves prior to Tx. Pt upright in chair upon therapist arrival, agreeable to therapy. UE yellow theraband exercises 4 reps x2 with therapist instructing Pt (with [id number]) on technique and posture: shld horizontal ab/adduction, bicep curls, tricep pulls, sword draws. Pt required rest break between each exercise d/t UE fatigue. OT educates Pt on hip precautions thoroughly with simple reasoning and demonstration. Pt verbalizes understanding and 3/3 precautions end of session, however poor follow through - as Pt not understanding why therapist says not to touch her toes. A: Pt demos decreased strength and functional endurance required for sit to stands and ADLs. Will benefit from further IP OT. Continue to educate on hip precautions.), Fair Total Time Spent With Patient: 26 (2 TE) Occupational Therapy Treatment Note: Detail (S: Pt tolerated Tx well, limited by general weakness/deconditioning. Verbalizes 1/3 hip precautions. O: OT donned iso precaution gown/gloves prior to Tx. Pt upright in chair upon therapist arrival, agreeable to therapy. UE yellow theraband exercises 4 reps x2 with therapist instructing Pt (with [id number]) on technique and posture: shld horizontal ab/adduction, bicep curls, tricep pulls, sword draws. Pt required rest break between each exercise d/t UE fatigue. OT educates Pt on hip precautions thoroughly with simple reasoning and demonstration. Pt verbalizes understanding and 3/3 precautions end of session, however poor follow through - as Pt not understanding why therapist says not to touch her toes. A: Pt demos decreased strength and functional endurance required for sit to stands and ADLs. Will benefit from further IP OT. Continue to educate on hip precautions.) Occupational Therapy Problem List: Detail (1. Min A for UB drsg 2. Weakness BUE's 3. Decreased endurance to safely complete self-care tasks) Occupational Therapy Goals: 1. Independent with UB drsg. 2. Increased endurance to safely complete self care tasks. 3. Grossly 4/5 BUE MMT Prognosis: Good Occupational Therapy Plan: OT to see patient 2-4x a week M-F to address UB weakness, decreased endurace for self-care tasks, and decreased indpendence with UB drsg.
[2019-02-22] MEDS: ATORVASTATIN 20 MG TABLET PO SCH (21:33)
[2019-02-23] MEDS: VANCOMYCIN HCL 1 GM VIAL PO SCH ×4 (00:19→17:54)
[2019-02-23] MEDS: LEVOTHYROXINE SODIUM 50 MCG TABLET PO SCH (06:09)
--- NOTE | 2019-02-23 10:05 | Physical Therapy Tx Note ---
Physical Therapy Tx Note - Treatment Note Tolerated: Fair Total Time Spent With Patient: 15 Physical Therapy Tx Note: Detail (The patient was seen for a car transfer per son's request. The patient performed a car transfer from wheelchair to car with CG of 1 and maximal verbal cues for proper technique including scooting all the way back before placing legs in the car and where to place her hands to push up. Due to cognition patient requires maximal verbal cues not to break THR precautions and for proper technique for car transfers.) Physical Therapy Problem List: Detail (1)Decreased R LE strength 2) Decreased standing balance 3) Impaired ambulation due to THR and decreased R LE strength 4) Assistance with ambulation.) Physical Therapy Goals: 1) The patient will ambulate with assistive device household distances with supervision for safety. 2) Will assess the patient's bed mobility. 3)Will assess the patient's balance using an objective balance test. ( Goal Met). 4) Increase R LE strength 1/3 muscle grade to improve stability of gait. 5)The patient will be independent with all transfers. Physical Therapy Plan: PT 1-2 times a day M-F for gait training, transfer training, LE strengthening and balance exercises.
[2019-02-23] MEDS: METOPROLOL SUCC 25 MG TAB.ER PO SCH (10:53)
[2019-02-23] MEDS: CALCIUM CARB/VITAMIN D 500MG/200IU PO SCH (10:53)
[2019-02-23] MEDS: FOLIC ACID 1 MG TABLET PO SCH (10:53)
[2019-02-23] MEDS: POTASSIUM CHLORIDE 10 MEQ TAB PO SCH (10:53)
[2019-02-23] MEDS: APIXABAN 2.5MG TABLET PO SCH ×2 (10:55→21:46)
[2019-02-23] MEDS: SERTRALINE HCL 50 MG TABLET PO SCH (10:55)
[2019-02-23] MEDS: PROMACTA 75 MG PO SCH (10:59)
[2019-02-23] MEDS: DANAZOL 200 MG PO SCH (10:59)
--- NOTE | 2019-02-23 12:03 | Occupational Therapy Tx Note ---
Occupational Therapy Tx Note - Treatment Note Tolerated: Good Total Time Spent With Patient: 47 (partial co-Tx with PT for car TF d/t need for multiple skilled hands for TF training for Pt with decreased cognition and RETA precautions (32 individual, 15 co Tx)) Occupational Therapy Treatment Note: Detail (S: Pt upright in bedside chair upon therapist arrival, agreeable to OT Tx. O: Pt doffs and dons clean sweater and button up shirt with light MIN assist for threading second arm. Pt verbalizes 1/3 hip precautions (no crossing legs), remembers there are 3, therapist re- educated Pt on hip precautions with simple explanation and demonstration, poor follow through throughout Tx. Sit to/from stand to FWW with MIN assist, Pt doffs/dons pants to/from knee level with alternating uni support on walker, therapist assist to doff from feet. Therapist foregoes education re: AE for LB dress as Pt has assist at baseline and demos inability to follow directions safely, putting her at risk to break hip precautions. MAX assist to don socks. Stand pivot TF with FWW from bedside chair to walker with CGA. Car TF training with PT. Therapist initially demos technique with simple instructions. MIN assist for stand pivot from WC to car with heavy verbal and tactile cueing, as Pt initially attempts to climb into car. PT guiding R leg while in to decrease interior rotation and bending >90* while OT assisting with upper body and Pt's hand placement for successful scooting and rotating buttocks. Practice x2, with increased follow through second attempt. Successful verbal cueing = sit down, scoot back (to middle console), legs in; with emphasis on "scoot back" before putting legs in. A: Pt would benefit from practicing car TF with son, PT hoping to trial this with son when he is here. Will also benefit from UE strengthening for UE compensation during functional TFs.) Occupational Therapy Problem List: Detail (1. Min A for UB drsg 2. Weakness BUE's 3. Decreased endurance to safely complete self-care tasks) Occupational Therapy Goals: 1. Independent with UB drsg. 2. Increased endurance to safely complete self care tasks. 3. Grossly 4/5 BUE MMT Occupational Therapy Plan: OT to see patient 2-4x a week M- to address UB weakness, decreased endurace for self-care tasks, and decreased indpendence with UB drsg.
--- NOTE | 2019-02-23 14:43 | Physical Therapy Tx Note ---
Physical Therapy Tx Note - Treatment Note Tolerated: Good Total Time Spent With Patient: 25 Physical Therapy Tx Note: Detail (The patient was awake and up in chair when PT arrived. The patient was independent with sit to stand transfer from varying surfaces. The patient required verbal cues to reach back for surface with stand to sit, including toilet transfer. The patient ambulated with front wheeled walker a distance of 14 feet x 1 and 22 feet x 1 with CG for safety and no episodes of knee buckling. The patient completed the following LE exercises including: LAQ, gluteal sets, hip abduction, hip adductor squeezes,heel to toe raises all x 10 to 15 reps.) Physical Therapy Problem List: Detail (1)Decreased R LE strength 2) Decreased standing balance 3) Impaired ambulation due to THR and decreased R LE strength 4) Assistance with ambulation.) Physical Therapy Goals: 1) The patient will ambulate with assistive device household distances with supervision for safety. 2) Will assess the patient's bed mobility. 3)Will assess the patient's balance using an objective balance test. ( Goal Met). 4) Increase R LE strength 1/3 muscle grade to improve stability of gait. 5)The patient will be independent with all transfers. Physical Therapy Plan: PT 1-2 times a day M-F for gait training, transfer training, LE strengthening and balance exercises.
[2019-02-23] MEDS ORDERED: AL HYDROX/MAG HYDROX 30ML UD PO ONE (17:56)
[2019-02-23] MEDS: ATORVASTATIN 20 MG TABLET PO SCH (21:46)
[2019-02-24] MEDS: VANCOMYCIN HCL 1 GM VIAL PO SCH ×5 (00:38→22:26)
[2019-02-24] MEDS: LEVOTHYROXINE SODIUM 50 MCG TABLET PO SCH (06:21)
[2019-02-24] MEDS: APIXABAN 2.5MG TABLET PO SCH ×2 (10:22→22:20)
[2019-02-24] MEDS: CALCIUM CARB/VITAMIN D 500MG/200IU PO SCH (10:22)
[2019-02-24] MEDS: DANAZOL 200 MG PO SCH (10:22)
[2019-02-24] MEDS: PROMACTA 75 MG PO SCH (10:22)
[2019-02-24] MEDS: FOLIC ACID 1 MG TABLET PO SCH (10:22)
[2019-02-24] MEDS: POTASSIUM CHLORIDE 10 MEQ TAB PO SCH (10:22)
[2019-02-24] MEDS: METOPROLOL SUCC 25 MG TAB.ER PO SCH (10:23)
[2019-02-24] MEDS: SERTRALINE HCL 50 MG TABLET PO SCH (10:24)
--- NOTE | 2019-02-24 11:16 | Physical Therapy Tx Note ---
Physical Therapy Tx Note - Treatment Note Tolerated: Good Total Time Spent With Patient: 25 Physical Therapy Tx Note: Detail (Patient states feeling "so so" today. Patient was reclined in chair upon TRACTOR MECHANIC APPRENTICE arrival. Patient transferred sit to and from stand SBA x1. Patient ambulated 30 feet with wheeled walker CGA x1. Patient performed the following seated exercises x15 reps each: marching, LAQ, isometric hamstring sets, glut squeezes, isometric hip abduction, hip adduction squeezes, heel raises, toe raises, and abdominal isometrics. Patient tolerated treatment well. Patient displays decreased strength and endurance with ambulation, abdominal isometrics, glut squeezes, LAQ, and isometric hamstring sets. Patient reports feeling tired after treatment. Patient was left seated in chair with call light within reach.) Physical Therapy Problem List: Detail (1)Decreased R LE strength 2) Decreased standing balance 3) Impaired ambulation due to THR and decreased R LE strength 4) Assistance with ambulation.) Physical Therapy Goals: 1) The patient will ambulate with assistive device household distances with supervision for safety. 2) Will assess the patient's bed mobility. 3)Will assess the patient's balance using an objective balance test. ( Goal Met). 4) Increase R LE strength 1/3 muscle grade to improve stability of gait. 5)The patient will be independent with all transfers. Prognosis: Good Physical Therapy Plan: PT 1-2 times a day M-F for gait training, transfer training, LE strengthening and balance exercises.
--- NOTE | 2019-02-24 15:06 | Occupational Therapy Tx Note ---
Occupational Therapy Tx Note - Treatment Note Tolerated: Good Total Time Spent With Patient: 43 (2 TE, 1 ADL) Occupational Therapy Treatment Note: Detail (S: Pt upright in chair upon therapist arrival, agreeable to OT Tx. O: Sit to/from stand with MIN assist, slight LOB therapist correct. Fxl mobility bedside chair to sink-side CGA with FWW. Verbal instruction for safe walker placement at sink and for verbal encouragement, as Pt very fearful about sink-side tasks d/t FOF - educated Pt on therapist precautionary measures for safety, including chair follow. Pt stands unsupported 3.5 min during sink-side teeth brushing with 2 slight LOB therapist correct. Pt requires short seated rest post teeth brushing. Pt completes toileting at [facility] over toilet with CGA for unsupported standing pant mgmt, therapist assist to pull to above knee level to maintain RETA precautions. Therapist assist for wiping [MOD assist toileting overall]. Pt verbalizes TWO of three precautions - crossing, bending past 90* at the waist. UB strengthening with therapist instruction for technique and posture for increased isolation of muscles and decrease risk for injury. In seated position, yellow theraband 5 reps x2: shld flexion, bicep curls, tricep pulls, horizontal ab/adduction, sword pulls. A: Pt demos increased awareness of hip precautions, however continues to demo fair follow through. Continues to be limited by decreased functional endurance and strength grossly, which limits safety and independence with ADLs and TFs.) Occupational Therapy Problem List: Detail (1. Min A for UB drsg 2. Weakness BUE's 3. Decreased endurance to safely complete self-care tasks) Occupational Therapy Goals: 1. Independent with UB drsg. 2. Increased endurance to safely complete self care tasks. 3. Grossly 4/5 BUE MMT Prognosis: Moderate Occupational Therapy Plan: OT to see patient 2-4x a week M-F to address UB weakness, decreased endurace for self-care tasks, and decreased indpendence with UB drsg.
[2019-02-24] MEDS: ATORVASTATIN 20 MG TABLET PO SCH (22:20)
[2019-02-25] MEDS: VANCOMYCIN HCL 1 GM VIAL PO SCH ×5 (00:34→23:25)
[2019-02-25] MEDS: ACETAMINOPHEN 500 MG TABLET PO PRN (02:35)
[2019-02-25] MEDS: LEVOTHYROXINE SODIUM 50 MCG TABLET PO SCH (06:12)
[2019-02-25 06:39] LABS: ABSOLUTE NEUTROPHIL COUNT 3.54; HEMOGLOBIN 7.3 gm/dl (11.6-16.0); MEAN CELL VOLUME 89.7 fl (81-97); MEAN CORPUSCULAR HGB CONC 28.1 g/dl (32-36); PLATELET COUNT 103 K/uL (130-400); RED CELL DISTRIBUTION WIDTH 23.9 % (11.5-14.5); WHITE BLOOD COUNT W/O DIFF 7.7 K/uL (4.2-12.2)
[2019-02-25 06:49] LABS: CREATININE 1.2 mg/dL (0.5-0.9)
[2019-02-25 06:57] LABS: MEAN CORPUSCULAR HEMOGLOBIN 25.1 pg (27-33)
[2019-02-25 06:59] LABS: HYPOCHROMIA 1+; PLATELET ESTIMATE NORMAL (NORMAL); POIKILOCYTOSIS 1+
[2019-02-25 07:00] LABS: ANISOCYTOSIS 2+; OVALOCYTES 1+; SCHISTOCYTES 1+
[2019-02-25 07:01] LABS: HELMET CELLS 1+
[2019-02-25] MEDS: METOPROLOL SUCC 25 MG TAB.ER PO SCH (09:50)
[2019-02-25] MEDS: FOLIC ACID 1 MG TABLET PO SCH (09:50)
[2019-02-25] MEDS: SERTRALINE HCL 50 MG TABLET PO SCH (09:51)
[2019-02-25] MEDS: POTASSIUM CHLORIDE 10 MEQ TAB PO SCH (09:51)
[2019-02-25] MEDS: FUROSEMIDE 20 MG TABLET PO SCH (09:51)
[2019-02-25] MEDS: APIXABAN 2.5MG TABLET PO SCH ×2 (09:51→23:24)
[2019-02-25] MEDS: CALCIUM CARB/VITAMIN D 500MG/200IU PO SCH (09:52)
[2019-02-25] MEDS: PROMACTA 75 MG PO SCH (09:54)
[2019-02-25] MEDS: DANAZOL 200 MG PO SCH (09:54)
--- NOTE | 2019-02-25 10:59 | Physical Therapy Tx Note ---
Physical Therapy Tx Note - Treatment Note Tolerated: Fair Total Time Spent With Patient: 30 Physical Therapy Tx Note: Detail (Patient states no new complaints. Patient was reclined in bed upon EXTENSION SERVICE ADVISOR arrival. Patient transferred supine to sit independently. Patient transferred sit to and from stand CGA x1. Patient ambulated 24 feet with wheeled walker CGA x1. Patient transferred sit to and from stand CGA x1. Patient ambulated 26 feet with wheeled walker CGA x1. P atient pulled down pants and brief independently. Patient transferred sit to and from stand CGA x1. Patient pulled up brief and pants independently. Patient required seated rest break due to fatigue. Patient transferred sit to and from stand CGA x1. Patient ambulated 13 feet with wheeled walker CGA x1. Patient transferred sit to supine independently. Patient performed the following exercises reclined in bed x10 reps each: ankle pumps, SAQ, SLR, isometric hip abduction, isometric hip adduction, and glut squeezes. Patient reports fatigue with exercises and ambulation this morning. Patient required several seated rest breaks with ambulation due to fatigue. Patient was left reclined in bed with call light within reach.) Physical Therapy Problem List: Detail (1)Decreased R LE strength 2) Decreased standing balance 3) Impaired ambulation due to THR and decreased R LE strength 4) Assistance with ambulation.) Physical Therapy Goals: 1) The patient will ambulate with assistive device household distances with supervision for safety. 2) Will assess the patient's bed mobility. 3)Will assess the patient's balance using an objective balance test. ( Goal Met). 4) Increase R LE strength 1/3 muscle grade to improve stability of gait. 5)The patient will be independent with all transfers. Prognosis: Good Physical Therapy Plan: PT 1-2 times a day M-F for gait training, transfer training, LE strengthening and balance exercises.
--- NOTE | 2019-02-25 14:09 | Physical Therapy Tx Note ---
Physical Therapy Tx Note - Treatment Note Tolerated: Good Total Time Spent With Patient: 35 Physical Therapy Tx Note: Detail (Pt sitting up in recliner upon arrival; awake/alert, cooperative for therapy. Still had lunch in front of her, partially eaten; did not want the rest of it. Performed 10 reps each B of ankle df/pf, straight leg raise, terminal knee extension, hip abduction, gluteal isometrics, hamstring isometrics, heel slides. Ambulated to bathroom w/front wheeled walker and CGA, VCs for pivoting to toilet and back to chair, CGA for self-management of clothing. Returned to bedside chair, asked to brush her teeth. Provided with toothpaste, brush, water, and basin. Pt brushed teeth independently and required assistance to manage items while sitting. Assisted pt to recline chair, placed bedside table in front with phone and call light in reach. Warm bath blanket on lap. No further needs identified; nrsg notified.) Physical Therapy Problem List: Detail (1)Decreased R LE strength 2) Decreased standing balance 3) Impaired ambulation due to THR and decreased R LE strength 4) Assistance with ambulation.) Physical Therapy Goals: 1) The patient will ambulate with assistive device household distances with supervision for safety. 2) Will assess the patient's bed mobility. 3)Will assess the patient's balance using an objective balance test. ( Goal Met). 4) Increase R LE strength 1/3 muscle grade to improve stability of gait. 5)The patient will be independent with all transfers. Prognosis: Good Physical Therapy Plan: PT 1-2 times a day M-F for gait training, transfer training, LE strengthening and balance exercises.
[2019-02-25] MEDS: ATORVASTATIN 20 MG TABLET PO SCH (23:24)
[2019-02-26] MEDS: VANCOMYCIN HCL 1 GM VIAL PO SCH ×4 (06:21→23:18)
[2019-02-26] MEDS: LEVOTHYROXINE SODIUM 50 MCG TABLET PO SCH (06:22)
[2019-02-26] MEDS: CALCIUM CARB/VITAMIN D 500MG/200IU PO SCH (09:18)
[2019-02-26] MEDS: METOPROLOL SUCC 25 MG TAB.ER PO SCH (09:19)
[2019-02-26] MEDS: POTASSIUM CHLORIDE 10 MEQ TAB PO SCH (09:19)
[2019-02-26] MEDS: APIXABAN 2.5MG TABLET PO SCH ×2 (09:19→21:07)
[2019-02-26] MEDS: FOLIC ACID 1 MG TABLET PO SCH (09:19)
[2019-02-26] MEDS: FUROSEMIDE 20 MG TABLET PO SCH (09:19)
[2019-02-26] MEDS: SERTRALINE HCL 50 MG TABLET PO SCH (09:19)
[2019-02-26] MEDS: PROMACTA 75 MG PO SCH (09:20)
[2019-02-26] MEDS: DANAZOL 200 MG PO SCH (09:20)
--- NOTE | 2019-02-26 10:52 | Occupational Therapy Tx Note ---
Occupational Therapy Tx Note - Treatment Note Tolerated: Good Total Time Spent With Patient: 20 (ther ex) Occupational Therapy Treatment Note: Detail (S: Pt up in recliner, finishing oral hygiene. O: Pt agreeable to UE strengthening. She completed 10 reps of the following UE exercises with yellow theraband and 10 reps with red theraband: scapular retraction, bicep curls, tricep extensions, shoulder flexion, shoulder extension, shoulder horizontal abduction, shoulder horizontal adduction. Pt reports fatigue in shoulders and required short rest breaks. A: Pt continues to improve UE endurance and she had no pain with exercises.) Occupational Therapy Problem List: Detail (1. Min A for UB drsg 2. Weakness BUE's 3. Decreased endurance to safely complete self-care tasks) Occupational Therapy Goals: 1. Independent with UB drsg. 2. Increased endurance to safely complete self care tasks. 3. Grossly 4/5 BUE MMT Prognosis: Good Occupational Therapy Plan: OT to see patient 2-4x a week M- to address UB weakness, decreased endurace for self-care tasks, and decreased indpendence with UB drsg.
--- NOTE | 2019-02-26 16:45 | Physical Therapy Tx Note ---
Physical Therapy Tx Note - Treatment Note Tolerated: Fair Total Time Spent With Patient: 30 Physical Therapy Tx Note: Detail (Patient was reclined in bed upon MIRROR PAINTER arrival. Patient transferred supine to sit independently. Patient states she's dizzy upon sitting. Patient transferred sit to and from stand CGA x1. Patient ambulated 5 feet with wheeled walker CGA x1. Patient transferred sit to and from stand CGA x1. Patient ambulated 6 feet with wheeled walker CGA x1. Patient performed sit to and from stand x2 CGA x1. Patient ambulated 6 feet with wheeled walker CGA x1. Patient performed the following exercises seated in chair x10 reps each: heel raises, toe raises, LAQ, marching, hip abduction with red theraband, isometric hip adduction, hamstring curls with yellow theraband, glut squeezes, and abdominal isometrics. Patient declined ambulation and stand ing exercises due to dizziness. Patient was left reclined in chair with call light within reach.) Physical Therapy Problem List: Detail (1)Decreased R LE strength 2) Decreased standing balance 3) Impaired ambulation due to THR and decreased R LE strength 4) Assistance with ambulation.) Physical Therapy Goals: 1) The patient will ambulate with assistive device household distances with supervision for safety. 2) Will assess the patient's bed mobility. 3)Will assess the patient's balance using an objective balance test. ( Goal Met). 4) Increase R LE strength 1/3 muscle grade to improve stability of gait. 5)The patient will be independent with all transfers. Prognosis: Good Physical Therapy Plan: PT 1-2 times a day M-F for gait training, transfer training, LE strengthening and balance exercises.
[2019-02-26] MEDS: ATORVASTATIN 20 MG TABLET PO SCH (21:06)
[2019-02-27] MEDS: ACETAMINOPHEN 500 MG TABLET PO PRN (02:46)
[2019-02-27] MEDS: LEVOTHYROXINE SODIUM 50 MCG TABLET PO SCH (06:29)
[2019-02-27] MEDS: VANCOMYCIN HCL 1 GM VIAL PO SCH ×3 (06:29→18:49)
[2019-02-27] MEDS: POTASSIUM CHLORIDE 10 MEQ TAB PO SCH (11:19)
[2019-02-27] MEDS: SERTRALINE HCL 50 MG TABLET PO SCH (11:19)
[2019-02-27] MEDS: CALCIUM CARB/VITAMIN D 500MG/200IU PO SCH (11:19)
[2019-02-27] MEDS: FUROSEMIDE 20 MG TABLET PO SCH (11:19)
[2019-02-27] MEDS: METOPROLOL SUCC 25 MG TAB.ER PO SCH (11:21)
[2019-02-27] MEDS: FOLIC ACID 1 MG TABLET PO SCH (11:23)
[2019-02-27] MEDS: APIXABAN 2.5MG TABLET PO SCH ×2 (11:23→22:47)
[2019-02-27] MEDS: DANAZOL 200 MG PO SCH (11:24)
[2019-02-27] MEDS: PROMACTA 75 MG PO SCH (11:24)
[2019-02-27] MEDS: ATORVASTATIN 20 MG TABLET PO SCH (22:47)
[2019-02-28] MEDS: VANCOMYCIN HCL 1 GM VIAL PO SCH ×4 (00:49→18:39)
[2019-02-28] MEDS: LEVOTHYROXINE SODIUM 50 MCG TABLET PO SCH (06:24)
[2019-02-28] MEDS: METOPROLOL SUCC 25 MG TAB.ER PO SCH (10:15)
[2019-02-28] MEDS: SERTRALINE HCL 50 MG TABLET PO SCH (10:16)
[2019-02-28] MEDS: FUROSEMIDE 20 MG TABLET PO SCH (10:16)
[2019-02-28] MEDS: FOLIC ACID 1 MG TABLET PO SCH (10:17)
[2019-02-28] MEDS: POTASSIUM CHLORIDE 10 MEQ TAB PO SCH (10:17)
[2019-02-28] MEDS: CALCIUM CARB/VITAMIN D 500MG/200IU PO SCH (10:17)
[2019-02-28] MEDS: APIXABAN 2.5MG TABLET PO SCH ×2 (10:24→22:13)
[2019-02-28] MEDS: DANAZOL 200 MG PO SCH (10:25)
[2019-02-28] MEDS: PROMACTA 75 MG PO SCH (10:25)
[2019-02-28] MEDS: ATORVASTATIN 20 MG TABLET PO SCH (22:13)
[2019-03-01] MEDS: VANCOMYCIN HCL 1 GM VIAL PO SCH ×5 (00:09→23:03)
[2019-03-01] MEDS: LEVOTHYROXINE SODIUM 50 MCG TABLET PO SCH (06:52)
--- NOTE | 2019-03-01 09:54 | Occupational Therapy Tx Note ---
Occupational Therapy Tx Note - Treatment Note Tolerated: Fair Total Time Spent With Patient: 45 (ADL) Occupational Therapy Treatment Note: Detail (S: Pt resting in bed, agreeable to shower this am. O: Supine to sit Indly. Pt doffed shirt and bra Indly. Sit to stand and amb to commode with 2 wheeled walker and CG assist. Pt doffed pants, briefs and slipper socks with mod assist as pt was not able to adhere to hip precautions without constant verbal cueing. Pt toileted with CG assist to stand. Pt amb to shower seat with 2 wheeled walker and CG assist and she was seated on shower bench with SBA. Pt completed showering with assist for back and lower legs/feet with continued verbal cueing to adhere to hip precautions. Pt completed sit to stand for alicia area with use of grab bar and min assist as pt was fearful of falling. Pt dried self with assist for back and lower legs/feet as well as CG assist to stand and dry alicia area and buttocks. Pt donned bra with assist to hook, shirt with verbal cues to fasten buttons, briefs and pants with assist to start over feet and CG assist to stand and farmworker pullet farm hips, and socks/tennis shoes with max assist. Pt able to brush hair Indly. Pt amb back to chair with 2 wheeled walker and CG assist. A: Pt requires constant verbal cues to adhere to hip precautions, she requires assist for showering and LE dressing due to decreased cognition and decreased recall of hip precautions, pt fatigued after self cares.) Occupational Therapy Problem List: Detail (1. Min A for UB drsg 2. Weakness BUE's 3. Decreased endurance to safely complete self-care tasks) Occupational Therapy Goals: 1. Independent with UB drsg. 2. Increased endurance to safely complete self care tasks. 3. Grossly 4/5 BUE MMT Prognosis: Moderate Occupational Therapy Plan: OT to see patient 2-4x a week M- to address UB weakness, decreased endurace for self-care tasks, and decreased indpendence with UB drsg.
[2019-03-01] MEDS: CALCIUM CARB/VITAMIN D 500MG/200IU PO SCH (10:41)
[2019-03-01] MEDS: METOPROLOL SUCC 25 MG TAB.ER PO SCH (10:42)
[2019-03-01] MEDS: POTASSIUM CHLORIDE 10 MEQ TAB PO SCH (10:42)
[2019-03-01] MEDS: APIXABAN 2.5MG TABLET PO SCH ×2 (10:42→21:46)
[2019-03-01] MEDS: SERTRALINE HCL 50 MG TABLET PO SCH (10:42)
[2019-03-01] MEDS: FUROSEMIDE 20 MG TABLET PO SCH (10:42)
[2019-03-01] MEDS: FOLIC ACID 1 MG TABLET PO SCH (10:42)
[2019-03-01] MEDS: PROMACTA 75 MG PO SCH (10:43)
[2019-03-01] MEDS: DANAZOL 200 MG PO SCH (10:43)
--- NOTE | 2019-03-01 14:26 | Physical Therapy Tx Note ---
Physical Therapy Tx Note - Treatment Note Tolerated: Good Total Time Spent With Patient: 15 Physical Therapy Tx Note: Detail (The patient was seen for car transfer prior to her appt. The patient ambulated from recliner to bathroom with front wheeled walker (7.5 feet x 1) with supervision for safety only and then to wheelchair 12 feet x 1. The patient was able to stand without support to handle her pants in bathroom. The patient completed a car transfer with CG of 1 for safety only and verbal cues for proper technique. The patient's son observed car transfer and how patient completed it with CG only. The patient left with son for appt.) Physical Therapy Problem List: Detail (1)Decreased R LE strength 2) Decreased standing balance 3) Impaired ambulation due to THR and decreased R LE strength 4) Assistance with ambulation.) Physical Therapy Goals: 1) The patient will ambulate with assistive device household distances with supervision for safety. 2) Will assess the patient's bed mobility. 3)Will assess the patient's balance using an objective balance test. ( Goal Met). 4) Increase R LE strength 1/3 muscle grade to improve stability of gait. 5)The patient will be independent with all transfers. Physical Therapy Plan: PT 1-2 times a day M-F for gait training, transfer training, LE strengthening and balance exercises.
[2019-03-01 18:51] LABS: ABSOLUTE NEUTROPHIL COUNT 4.15; HEMATOCRIT 28.9 % (35.0-47.0); HEMOGLOBIN 8.1 gm/dl (11.6-16.0); MEAN CORPUSCULAR HEMOGLOBIN 25.2 pg (27-33); PLATELET COUNT 79 K/uL (130-400); RED BLOOD COUNT 3.21 M/uL (3.80-5.40); RED CELL DISTRIBUTION WIDTH 24.2 % (11.5-14.5); WHITE BLOOD COUNT W/O DIFF 7.4 K/uL (4.2-12.2)
[2019-03-01 19:01] LABS: ANISOCYTOSIS 2+; CREATININE 1.2 mg/dL (0.5-0.9); HYPOCHROMIA 2+; PLATELET ESTIMATE DECREASED (NORMAL)
[2019-03-01] MEDS: ATORVASTATIN 20 MG TABLET PO SCH (21:46)
[2019-03-02] MEDS: LEVOTHYROXINE SODIUM 50 MCG TABLET PO SCH (06:30)
[2019-03-02] MEDS: VANCOMYCIN HCL 1 GM VIAL PO SCH ×3 (06:31→18:47)
--- NOTE | 2019-03-02 08:28 | Physician Progress Note ---
Subjective - Date Date of Progress Note: 03/02/19 - Admitting Diagnosis Diagnosis: Deconditioning d/t hip displacement - Subjective Nursing Care Plan Problem List Activity Intolerance (Swing Bed) Start: 02/18/19 14:54 Freq: Status: Active Protocol: Created 02/18/19 14:54 SAF (Rec: 02/18/19 14:54 SAF [email or web address]) Altered Peripheral Tissue Perfusion Start: 02/18/19 15:22 Freq: Status: Active Protocol: Created 02/18/19 15:22 SAF (Rec: 02/18/19 15:22 SAF [email or web address]-[email or web address]) Altered Thought Process (Fall Risk) Start: 02/18/19 15:00 Freq: Status: Active Protocol: Created 02/18/19 15:00 SAF (Rec: 02/18/19 15:00 SAF [email or web address]-1) Diarrhea Start: 02/21/19 01:46 Freq: Status: Active Protocol: Created 02/21/19 01:46 LPR (Rec: 02/21/19 01:46 LPR [email or web address]-1) High Risk: Post-Op Complications Start: 02/18/19 15:22 Freq: Status: Active Protocol: Created 02/18/19 15:22 SAF (Rec: 02/18/19 15:22 SAF [email or web address]-1) Impaired Mobility (Fall Risk) Start: 02/18/19 15:00 Freq: Status: Active Protocol: Created 02/18/19 15:00 SAF (Rec: 02/18/19 15:00 SAF [email or web address]-1) Impaired Skin Integrity Start: 02/18/19 15 :22 Freq: Status: Active Protocol: Created 02/18/19 15:22 SAF (Rec: 02/18/19 15:22 SAF [email or web address]-1) Knowledge Deficit (Swing Bed) Start: 02/18/19 14:54 Freq: Status: Active Protocol: Created 02/18/19 14:54 SAF (Rec: 02/18/19 14:54 SAF [email or web address]-1) Knowledge Deficit: Total Hip Replacement Start: 02/18/19 15:22 Freq: Status: Active Protocol: Created 02/18/19 15:22 SAF (Rec: 02/18/19 15:22 SAF ASTS-1) Pain Start: 02/18/19 15:22 Freq: Status: Active Protocol: Created 02/18/19 15:22 SAF (Rec: 02/18/19 15:22 SAF [email or web address]-1) Pain (Swing Bed) Start: 02/18/19 14:54 Freq: Status: Active Protocol: Created 02/18/19 14:54 SAF (Rec: 02/18/19 14:54 SAF [email or web address]-1) Risk for Injury (Fall Risk) Start: 02/18/19 15:00 Freq: Status: Active Protocol: Created 02/18/19 15:00 SAF (Rec: 02/18/19 15:00 SAF ASTS-1) Subjective: Evaluated the patient this morning at 8:22 am. She appears alert and her orientation is waxing and waning. She says that she is comfortable but has not had very good sleep at night. General - Cognitive Patterns Speech: Normal Thought Process: Intact Thought Content: Normal - Communication Select best description of speech pattern: Clear Speech Ability to express ideas and wants: Usually Understood Understanding verbal content: Understands - Mood and Behavior Patterns Appearance: Disheveled Mood: Normal Attitude: Cooperative Motor Activity: Calm Affect: Appropriate Hallucinations: Denies - Physical Functioning Activity Level: Up as tolerated Turning: With partial assist ROM Ability: Limited/Compromised Assistive Devices: Walker Activity Level Comment: pt is very unsteady falls backwards while standing upright, needs frequent reminders to hold on to wall bars and structures rather than trying to pull herself up with walker Ambulation Ability: Independent Bed Mobility: Dependent Transfer Ability: Independent Bathing Ability: Dependent Personal Hygiene: Dependent Dressing Ability: Independent Eating (Feeding) Ability: Independent Toileting Ability: Independent Administer Own Medication: Independent - Continence Bowel Pattern: Normal for Patient Bladder Pattern: Normal Urinary Incontinence: Functional Meds/Allergies - Allergies Allergies Allergy/AdvReac Type Severity Reaction Status Date / Time No Known Drug Allergies Allergy Verified 02/09/19 05:00 - Active Medications Current Medications Acetaminophen (Tylenol 500mg Tab) 500 mg PO Q6H PRN PRN Reason: PAIN - MILD (1-4) Last Admin: 02/27/19 02:46 Dose: 500 mg Documented by: Apixaban (Eliquis) 2.5 mg PO BID [facility] Last Admin: 03/01/19 21:46 Dose: 2.5 mg Documented by: Atorvastatin Calcium (Lipitor) 40 mg PO QHS [facility] Last Admin: 03/01/19 21:46 Dose: 40 mg Documented by: Calcium/Vitamin D (Calcium 500+D Tablet) 2 tab PO DAILY [facility] Last Admin: 03/01/19 10:41 Dose: 2 tab Documented by: Folic Acid () 1 mg PO DAILY [facility] Last Admin: 03/01/19 10:42 Dose: 1 mg Documented by: Furosemide (Lasix) 20 mg PO DAILY [facility] Last Admin: 03/01/19 10:42 Dose: 20 mg Documented by: Levothyroxine Sodium (Synthroid) 50 mcg PO DAILYTHY [facility] Last Admin: 03/02/19 06:30 Dose: 50 mcg Documented by: Metoprolol Succinate (Toprol Xl) 12.5 mg PO DAILY [facility] Last Admin: 03/01/19 10:42 Dose: 12.5 mg Documented by: Patient Own Med: (Danazol 200 Mg) 1 each PO DAILY [facility] Last Admin: 03/01/19 10:43 Dose: 1 each Documented by: Patient Own Med: (Promacta 75 Mg) 1 each PO DAILY [facility] Last Admin: 03/01/19 10:43 Dose: 1 each Documented by: Potassium Chloride (Klor-Con) 10 meq PO DAILY [facility] Last Admin: 03/01/19 10:42 Dose: 10 meq Documented by: Sertraline HCl (Zoloft) 25 mg PO DAILY [facility] Last Admin: 03/01/19 10:42 Dose: 25 mg Documented by: Vancomycin HCl (Vancomycin Hcl) 125 mg PO Q6HR [facility] Stop: 03/03/19 06:01 Last Admin: 03/02/19 06:31 Dose: 125 mg Documented by: Zinc Oxide (Desitin) 10 gm TOP ASDIR PRN PRN Reason: RASH Objective - Vital Signs Vital Signs: Vital Signs - Last 24 Hrs Temp Pulse Resp BP BP Pulse Ox 03/02/19 07:21 98.5 F 94 H 22 119/64 93 L 03/01/19 20:00 98.2 F 86 18 116/69 96 03/01/19 09:13 97.7 F 106/58 - General General Appearance: Alert, Cooperative, No acute distress - Head Head exam detail: Abrasion (above left eye), Contusion (above left eye) - Respiratory Respiratory exam: Normal lung sounds bilaterally - Cardiovascular Cardiovascular Exam: Regular rate, Normal rhythm, Systolic murmur Peripheral Pulses: 2+: Radial (R), Radial (L) - GI/Abdominal GI/Abdominal exam: Soft, Normal bowel sounds - Extremities Extremities exam: Normal inspection. negative: Tenderness - Neurological Neurological exam: Alert - Psychiatric Psychiatric exam: Normal affect, Normal mood - Skin Skin exam: Dry H&P Results - Labs Result Diagrams: 03/01/19 18:17 03/01/19 18:17 Labs Last 24 Hours: Laboratory Results - last 24 hr 03/01/19 03/01/19 03/01/19 18:17 18:17 Unknown WBC 7.4 RBC 3.21 L Hgb 8.1 L Hct 28.9 L MCV 90.0 MCH 25.2 L MCHC 28.0 L RDW 24.2 H Plt Count 79 L Neutrophils % 61.0 Band Neutrophils % 1.0 Eosinophils % Not Reportable Basophils % Not Reportable Absolute Neutrophils 4.15 Lymphocytes 11.0 L Monocytes 26.0 H Platelet Estimate Decreased Hypochromasia 2+ Anisocytosis 2+ Eosinophil Count 1.0 Sodium 145 Potassium 4.0 Chloride 107 Carbon Dioxide 24.0 Anion Gap 14.0 BUN 18 Creatinine 1.2 H Estimated GFR 45 Random Glucose 138 H Calcium 9.1 Iron 133 TIBC 423 H % Saturation 31 Stool Occult Blood Negative Discharge Potential - Discharge Needs Community Services Used Prior to Admission: Home Health Nurse Patient Discharge Plan Description: AFC/Assisted Living Community Services Needed at Discharge: Home Health Nurse, Occupational Therapy, Physical Therapy Discharge Needs Comment: [facility] Healthcare Plan - Swing Bed Certification Initial Certification Due: 02/18/19 14 Day Re-Cert Due: 03/04/19 44 Day Re-Cert Due: 04/03/19 74 Day Re-Cert Due: 05/03/19 - Detailed Diagnosis and Plan (1) Physical deconditioning Current Visit: Yes Status: Acute Base Code: R53.81 - OTHER MALAISE Comment: 03/02/19 - hx of right hip pain from recent total hip replacement with complication of dislocation and hematoma after multiple falls. - Difficulty with transfering from wheelchair and is an assist with ambulation. - PT: Patient able to complete car transfer and able tp transfer to restroom [facility] rolling walker. Continuing with gait training daily. - OT: Constat verbal cues reqired and moderate improvement in function. Therapy to continue 2-4 days/week as planned. (2) Chronic deep vein thrombosis (DVT) of left lower extremity Current Visit: No Status: Chronic Base Code: I82.502 - CHRONIC EMBOLISM AND THOMBOS UNSP DEEP VEINS OF L LOW EXTREM Comment: 03/02/19: - S/P IVC filter. - Warfarin held 2/2 hematoma formation. - Anticoagulated on Eliquis. 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 (5) Chronic anemia Current Visit: No Status: Acute Base Code: D64.9 - ANEMIA, UNSPECIFIED Comment: 01/30/19: - Hx of Autoimmune hemolytic anemia. - Hgb 8.1 (6) Depression Current Visit: Yes Status: Chronic Base Code: F32.9 - MAJOR DEPRESSIVE DISORDER, SINGLE EPISODE, UNSPECIFIED Comment: 03/02/19 -Zoloft 25mg daily. (7) Systolic and diastolic CHF, chronic Current Visit: No Status: Chronic Base Code: I50.42 - CHRONIC COMBINED SYSTOLIC AND DIASTOLIC HRT FAIL Comment: 03/02/19 - Reported EF 45-50% - Continue Metoprolol 12.5mg daily, Lasix 40mg daily and K+ 10meq daily (8) History of ITP Current Visit: Yes Status: Acute Base Code: Z86.2 - PRSNL HISTORY OF DIS OF THE BLD/BLD-FORM ORG/IMMUN MECHN Comment: 03/01/19: - Hx of ITP - Plts 103 --> 79 - Pt managed by Heme/Oncology. (9) DNR (do not resuscitate) Current Visit: No Status: Acute Base Code: Z66 - DO NOT RESUSCITATE Co mment: 03/02/19: - DNR on this admission.
--- NOTE | 2019-03-02 09:53 | Physical Therapy Tx Note ---
Physical Therapy Tx Note - Treatment Note Tolerated: Good Total Time Spent With Patient: 25 Physical Therapy Tx Note: Detail (The patient was brushing her teeth when PT arrived. The patient's LE strength was retested : L LE strength is 4+ to 5/5. R hip extensors 3/5, hip rotators and abductors 3-/5, adductors 3+/5. Improved hip extensors were noted. The patient completed the following strengthening exercises: standing R SAQ combined with hip extension x 10 reps, wt. shift onto R LE x 3 reps., hip abduction and extension x 10 reps, seated and standing gluteal sets, isolated hip abduction R. The patient ambulated with front wheeled walker with supervision for safety 50 feet x 1. The patient exhibits increased strength in R hip extensors and increased weight bearing on R LE when ambulating. The patient continues to fatigue quickly with R LE wt. bearing exercises.) Physical Therapy Problem List: Detail (1)Decreased R LE strength 2) Decreased standing balance 3) Impaired ambulation due to THR and decreased R LE strength 4) Assistance with ambulation.) Physical Therapy Goals: 1) The patient will ambulate with assistive device household distances with supervision for safety. 2) Will assess the patient's bed mobility. 3)Will assess the patient's balance using an objective balance test. ( Goal Met). 4) Increase R LE strength 1/3 muscle grade to improve stability of gait. 5)The patient will be independent with all transfers. Physical Therapy Plan: PT 1-2 times a day M-F for gait training, transfer training, LE strengthening and balance exercises.
[2019-03-02] MEDS: METOPROLOL SUCC 25 MG TAB.ER PO SCH (10:40)
[2019-03-02] MEDS: FUROSEMIDE 20 MG TABLET PO SCH (10:40)
[2019-03-02] MEDS: APIXABAN 2.5MG TABLET PO SCH ×2 (10:41→22:06)
[2019-03-02] MEDS: SERTRALINE HCL 50 MG TABLET PO SCH (10:41)
[2019-03-02] MEDS: PROMACTA 75 MG PO SCH (10:42)
[2019-03-02] MEDS: DANAZOL 200 MG PO SCH (10:42)
[2019-03-02] MEDS: FOLIC ACID 1 MG TABLET PO SCH (10:42)
[2019-03-02] MEDS: POTASSIUM CHLORIDE 10 MEQ TAB PO SCH (10:42)
[2019-03-02] MEDS: CALCIUM CARB/VITAMIN D 500MG/200IU PO SCH (10:42)
[2019-03-02] MEDS: ATORVASTATIN 20 MG TABLET PO SCH (22:06)
[2019-03-03] MEDS: VANCOMYCIN HCL 1 GM VIAL PO SCH ×2 (00:02→06:46)
[2019-03-03] MEDS: LEVOTHYROXINE SODIUM 50 MCG TABLET PO SCH (06:47)
[2019-03-03] MEDS: FOLIC ACID 1 MG TABLET PO SCH (10:09)
[2019-03-03] MEDS: CALCIUM CARB/VITAMIN D 500MG/200IU PO SCH (10:09)
[2019-03-03] MEDS: APIXABAN 2.5MG TABLET PO SCH ×2 (10:09→21:57)
[2019-03-03] MEDS: DANAZOL 200 MG PO SCH (10:10)
[2019-03-03] MEDS: FUROSEMIDE 20 MG TABLET PO SCH (10:10)
[2019-03-03] MEDS: POTASSIUM CHLORIDE 10 MEQ TAB PO SCH (10:10)
[2019-03-03] MEDS: PROMACTA 75 MG PO SCH (10:10)
[2019-03-03] MEDS: METOPROLOL SUCC 25 MG TAB.ER PO SCH (10:11)
[2019-03-03] MEDS: SERTRALINE HCL 50 MG TABLET PO SCH (10:12)
--- NOTE | 2019-03-03 11:35 | Physical Therapy Tx Note ---
Physical Therapy Tx Note - Treatment Note Tolerated: Good Total Time Spent With Patient: 30 Physical Therapy Tx Note: Detail (Patient states feeling alright today. Patient was reclined in chair upon SALES DEMONSTRATOR arrival. Patient transferred sit to and from stand x2 SBA x1. Patient ambulated 35 feet x2 with wheeled walker CGA x1. Patient transferred sit to and from stand SBA x1. Patient performed the following exercises x10 reps each: TKE standing, weight shifts at walker, standing heel raises, standing toe raises, LAQ, and seated hip abduction with red theraband R/L. Patient required several seated rest breaks with standing exercises due to fatigue. Patient declined further exercises due to fatigued. Patient was left reclined in chair with call light within reach.) Physical Therapy Problem List: Detail (1)Decreased R LE strength 2) Decreased standing balance 3) Impaired ambulation due to THR and decreased R LE strength 4) Assistance with ambulation.) Physical Therapy Goals: 1) The patient will ambulate with assistive device household distances with supervision for safety. 2) Will assess the patient's bed mobility. 3)Will assess the patient's balance using an objective balance test. ( Goal Met). 4) Increase R LE strength 1/3 muscle grade to improve stability of gait. 5)The patient will be independent with all transfers. Prognosis: Good Physical Therapy Plan: PT 1-2 times a day M-F for gait training, transfer training, LE strengthening and balance exercises.
--- NOTE | 2019-03-03 14:11 | Occupational Therapy Tx Note ---
Occupational Therapy Tx Note - Treatment Note Tolerated: Good Total Time Spent With Patient: 42 (2 ADL, 1 TE) Occupational Therapy Treatment Note: Detail (S: Pt in recliner upon therapist arrival, agreeable to OT Tx. Ok to see per LORENZA Servin. O: Therapist assess Pt's knowledge/follow thru of RETA precautions and prompts Pt to remove socks, Pt reports, "I shouldn't bend to the floor, I shouldn't bend past an L at my waist." Therapist prompts Pt to cross her legs and she states, "I shouldn't do that either." Pt doffs gown and dons button up shirt with MIN assist for orientation and pulling around her back, able to manage 2 buttons with increased time before requesting assist (assist for dressing at baseline). OT threads pants and doffs/dons socks, Pt stands with supervision to pull up pants to waist level without walker support, requires assist to manage fasteners. Recliner to [facility] over toilet with FWW and supervision. Pt wipes with uni support on walker, requires assist for thoroughness. OT engages Pt in upper body exercises for increased strength for functional TFs and ADLs: yellow theraband 10 reps x2 bicep curls, shld horizontal ab/adduction, tricep extensions, sword draws. SpO2 maintains >96%, HR ~100 throughout despite some SOB noted. Therapist educating Pt on technique and posture to isolate specific muscles and decrease risk for injury. A: Pt demos increased understanding and follow thru with RETA precautions, increased UB strength, increased balance during standing pant mgmt, and increased functional endurance grossly.) Occupational Therapy Problem List: Detail (1. Min A for UB drsg 2. Weakness BUE's 3. Decreased endurance to safely complete self-care tasks) Occupational Therapy Goals: 1. Independent with UB drsg. 2. Increased endurance to safely complete self care tasks. 3. Grossly 4/5 BUE MMT Prognosis: Good Occupational Therapy Plan: OT to see patient 2-4x a week M-F to address UB weakness, decreased endurace for self-care tasks, and decreased indpendence with UB drsg.
--- NOTE | 2019-03-03 14:15 | Rehab Discharge Summary ---
Patient Information - Patient Information Diagnosis: Deconditioning d/t hip displacement Ordered Treatment: OT Evaluate and Treat Past Medical/Surgical Hx: PAST MEDICAL/SURGICAL HISTORY Past Surgical History hysterectomy tonsils PMH - Respiratory Hx Respiratory Disorders Yes Hx Chronic Obstructive Yes Pulmonary Disease (COPD) PMH - Cardiovascular Hx Cardiovascular Disorders Yes Hx Deep Vein Thrombosis Yes: s/p IVC filter Hx Heart Attack Yes Comment: CAD, EF 45-50% PMH - Neuro Hx Neurological Disorders Yes Hx Cerebrovascular Accident Yes Hx Dementia Yes PMH - GI Hx Gastrointestinal Disorders No PMH - Hx Genitourinary Disorders No PMH - Endocrine Hx Endocrine Disorders No Hx Thyroid Disease Yes: hypo Comment: autoimmune hemolytic anemia, ITP PMH - Musculoskeletal Hx Musculoskeletal Disorders No Comment: deconditioning PMH - Psych Hx Psychiatric Problems No PMH - Hematology/Oncology Hx Hematology/Oncology No Disorders Premorbid Status: Detail (Pt is a resident at [facility] and has sustained frequent falls. [facility] staff assist with all self cares, including showering and dressing. Pt. reports she was ambulating "a little") Social History: Detail Precautions: [place], Fall, Other (R THR precautions.) Subjective Information - Subjective Information Per Patient Objective Data - Pain Pain Present: No - Mental Status Patient Orientation: Person - Visual Perception Appears within normal limits for therapeutic activities - ROM Within normal limits - Strength/Tone Within normal limits (UE strength increased grossly, 4/5 all B shld MMT, 4+/5 elbow flex/extension) - Coordination Appears within normal limits for therapeutic activities - Transfers Needs Assist (supervision assist sit-stand to FWW, improved balance since admit, previously CGA/MIN) - Balance Balance Sitting: Good Balance Standing: Fair - Sensation Intact - Gait Detail (Fxl mobility bedroom distances with FWW and good balance and safety awareness) - ADL's/IADL's Detail (Continues to require MIN assist for UB dress per baseline. Continues to require MIN-MOD assist for LB dressing to thread pants to knee level and to don socks d/t hip precautions, however pulls pants to waist with supervision and increasingly good balance without support on walker. Pt has progressed to tolera ting self-cares, e.g. teeth brushing, in standing position at sink-side.) Therapy Assessment - Therapy Assessment Detail (Pt demos increased understanding and follow thru with RETA precautions, increased UB strength needed for ADLs and fxl TFs, increased balance during standing pant mgmt and wiping during toileting, and increased functional endur ance grossly. Pt is at decreased risk for falls and further hip injury since admit. Rec. continued assist with dressing, and supervision during fxl mobility upon DC to [facility]. Continue to remind Pt not to bend past "L" at waist, cross legs, or twist leg inward, especially during car TFs.) Patient Education - Patient Education Teaching Topic: Exercise/Activity, Precautions Response: Return Demonstration, Reinforcement Needed, Verbalize Understanding Teaching Method: Discussion, Demonstration Teaching Recipient: Patient Barriers To Learning: Cognitive/Verbal Problem List - Problem List Physical Therapy Problem List: Detail (1)Decreased R LE strength 2) Decreased standing balance 3) Impaired ambulation due to THR and decreased R LE strength 4) Assistance with ambulation.) Occupational Therapy Problem List: Detail (1. Min A for UB drsg 2. Weakness BUE's 3. Decreased endurance to safely complete self-care tasks) Goals - Goals Physical Therapy Goals: 1) The patient will ambulate with assistive device household distances with supervision for safety. 2) Will assess the patient's bed mobility. 3)Will assess the patient's balance using an objective balance test. ( Goal Met). 4) Increase R LE strength 1/3 muscle grade to improve stability of gait. 5)The patient will be independent with all transfers. Occupational Therapy Goals: 1. Independent with UB drsg (has assist at baseline). MET: 2. Increased endurance to safely complete self care tasks. MET: 3. Grossly 4/5 BUE MMT. MET: 4. Increased adherance to RETA precautions Prognosis - Prognosis Good Plan - Plan Physical Therapy Plan: PT 1-2 times a day M-F for gait training, transfer training, LE strengthening and balance exercises. Occupational Therapy Plan: Pt to DC to [facility]. Rec. continued assist with dressing, and supervision during fxl mobility upon return to [facility]. Continue to remind Pt not to bend past "L" at waist, not to cross legs, or twist leg inward, especially during car TFs.
--- NOTE | 2019-03-03 15:35 | Rehab Evaluation ---
Patient Information - Patient Information Diagnosis: Deconditioning d/t hip displacement Ordered Treatment: PT Evaluate and Treat Status: Initial Evaluation Past Medical/Surgical Hx: PAST MEDICAL/SURGICAL HISTORY Past Surgical History hysterectomy tonsils PMH - Respiratory Hx Respiratory Disorders Yes Hx Chronic Obstructive Yes Pulmonary Disease (COPD) PMH - Cardiovascular Hx Cardiovascular Disorders Yes Hx Deep Vein Thrombosis Yes: s/p IVC filter Hx Heart Attack Yes Comment: CAD, EF 45-50% PMH - Neuro Hx Neurological Disorders Yes Hx Cerebrovascular Accident Yes Hx Dementia Yes PMH - GI Hx Gastrointestinal Disorders No PMH - Hx Genitourinary Disorders No PMH - Endocrine Hx Endocrine Disorders No Hx Thyroid Disease Yes: hypo Comment: autoimmune hemolytic anemia, ITP PMH - Musculoskeletal Hx Musculoskeletal Disorders No Comment: deconditioning PMH - Psych Hx Psychiatric Problems No PMH - Hematology/Oncology Hx Hematology/Oncology No Disorders Premorbid Status: Detail (Pt is a resident at [facility] and has sustained frequent falls. [facility] staff assist with all self cares, including showering and dressing. Pt. reports she was ambulating "a little") Social History: Detail Precautions: [place], Fall, Other (R THR precautions.) Subjective Information - Subjective Information Per Patient (The patient had no complaints of pain. The patient occasionally expressed fear of falling.) Objective Data - Mental Status Patient Orientation: Person, Place (The patient knew where she was, birthdate, current month and year. The patient did not know her age. The patient did not follow THR functionally, although she could identify them.) - ROM Not within normal limits (The patient's L LE AROM is WNL. R L hip is within total hip replacement precautions. All other R LE AROM is WNL.) - Strength/Tone Not within normal limits (The patient's LE strength is as follows: L LE strength is 4+ to 5/5. R hip extensors 3/5, hip rotators and abductors 3-/5, hip adductors 3+/5, knee musculature) Problem List - Problem List Physical Therapy Problem List: Detail (1)Decreased R LE strength 2) Decreased standing balance 3) Impaired ambulation due to THR and decreased R LE strength 4) Assistance with ambulation.) Occupational Therapy Problem List: Detail (1. Min A for UB drsg 2. Weakness BUE's 3. Decreased endurance to safely complete self-care tasks) Goals - Goals Physical Therapy Goals: 1) The patient will ambulate with assistive device household distances with supervision for safety. 2) Will assess the patient's bed mobility. 3)Will assess the patient's balance using an objective balance test. ( Goal Met). 4) Increase R LE strength 1/3 muscle grade to improve stability of gait. 5)The patient will be independent with all transfers. Occupational Therapy Goals: 1. Independent with UB drsg (has assist at baseline). MET: 2. Increased endurance to safely complete self care tasks. MET: 3. Grossly 4/5 BUE MMT. MET: 4. Increased adherance to RETA precautions Plan - Plan Physical Therapy Plan: PT 1-2 times a day M-F for gait training, transfer training, LE strengthening and balance exercises. Occupational Therapy Plan: Pt to DC to [facility]. Rec. continued assist with dressing, and supervision during fxl mobility upon return to [facility]. Continue to remind Pt not to bend past "L" at waist, not to cross legs, or twist leg inward, especially during car TFs.
--- NOTE | 2019-03-03 15:50 | Rehab Discharge Summary ---
Patient Information - Patient Information Diagnosis: Deconditioning d/t hip displacement Ordered Treatment: PT Evaluate and Treat Past Medical/Surgical Hx: PAST MEDICAL/SURGICAL HISTORY Past Surgical History hysterectomy tonsils PMH - Respiratory Hx Respiratory Disorders Yes Hx Chronic Obstructive Yes Pulmonary Disease (COPD) PMH - Cardiovascular Hx Cardiovascular Disorders Yes Hx Deep Vein Thrombosis Yes: s/p IVC filter Hx Heart Attack Yes Comment: CAD, EF 45-50% PMH - Neuro Hx Neurological Disorders Yes Hx Cerebrovascular Accident Yes Hx Dementia Yes PMH - GI Hx Gastrointestinal Disorders No PMH - Hx Genitourinary Disorders No PMH - Endocrine Hx Endocrine Disorders No Hx Thyroid Disease Yes: hypo Comment: autoimmune hemolytic anemia, ITP PMH - Musculoskeletal Hx Musculoskeletal Disorders No Comment: deconditioning PMH - Psych Hx Psychiatric Problems No PMH - Hematology/Oncology Hx Hematology/Oncology No Disorders Premorbid Status: Detail (Pt is a resident at [facility] and has sustained frequent falls. [facility] staff assist with all self cares, including showering and dressing. Pt. reports she was ambulating "a little") Social History: Detail Precautions: Burke, Fall, Other (R THR precautions.) Subjective Information - Subjective Information Per Patient (The patient had no complaints of pain. The patient did complain of occasional fear of falling.) Objective Data - Mental Status Patient Orientation: Person, Place (The patient knew her birthdate, current month and year and place. The patient did not know her age. The patient could indentify THR precautions but did not follow them functionally.) - ROM Within normal limits (All LE AROM was WNL and R hip was Within Total Hip Precautions.) - Strength/Tone Not within normal limits (L LE strength was generally 4+to 5/5. R hip extensors 3/5, hip rotators and abductors 3-/5, hip adductors 3+/5, knee musculature 4/5 and ankle musculature 4 to 4+/5.) - Bed Mobility Independent (The patient was independent with supine to and from sit transfer.) - Transfers Independent (The patient was independent with sit to and from stand transfer and supervision for safety only with toilet transfer. The patient required CG and verbal cues to complete a car transfer.) - Balance Balance Sitting: Good Balance Standing: Fair (The patient's balance as measured using the Tinetti's Assessment Tool was which is in the high risk for falling category ( initially -not a signicant clinical change).) - Gait Detail (The patient ambulated with front wheeled walker with supervision/CG for safety a distance of a maximal distance of 50 feet. The patient exhibited improved weight bearing on R LE.) Therapy Assessment - Therapy Assessment Detail (The patient was independent to CG with mobility. The patient continues to exhibit R gluteal weakness, however hip extensor contractions were stronger. Hip abductors continued to be weaker. The patient overall had improved R LE weight bearing during ambulation and was able to stand with R knee extension and hip extension with tactile cues. Ongoing PT is recommended to continue to increased LE strength and improve ambulation ability.) Patient Education - Patient Education Teaching Topic: Exercise/Activity (The patient was instructed in LE streng thening exercises and was able to complete when cued verbally.) Response: Return Demonstration Teaching Method: Discussion, Demonstration, Handout Teaching Recipient: Family Barriers To Learning: Age Related Problem List - Problem List Physical Therapy Problem List: Detail (1)Decreased R LE strength 2) Decreased standing balance 3) Impaired ambulation due to THR and decreased R LE strength 4) Assistance with ambulation.) Occupational Therapy Problem List: Detail (1. Min A for UB drsg 2. Weakness BUE's 3. Decreased endurance to safely complete self-care tasks) Goals - Goals Physical Therapy Goals: 1) The patient will ambulate with assistive device household distances with supervision for safety. (Goal Met). 2) Will assess the patient's bed mobility (Goal Met). 3)Will assess the patient's balance using an objective balance test. ( Goal Met). 4) Increase R LE strength 1/3 muscle grade to improve stability of gait.(Goal partially met). 5)The patient will be independent with all transfers.(Goal Partially Met-supervision for safety) Occupational Therapy Goals: 1. Independent with UB drsg (has assist at baseline). MET: 2. Increased endurance to safely complete self care tasks. MET: 3. Grossly 4/5 BUE MMT. MET: 4. Increased adherance to RETA precautions Plan - Plan Physical Therapy Plan: The patient is discharging to assistive living facility. The patient is to receive Home PT services. Occupational Therapy Plan: Pt to DC to [facility]. Rec. continued assist with dressing, and supervision during fxl mobility upon return to [facility]. Continue to remind Pt not to bend past "L" at waist, not to cross legs, or twist leg inward, especially during car TFs.
[2019-03-03] MEDS: ATORVASTATIN 20 MG TABLET PO SCH (21:57)
[2019-03-04] MEDS: LEVOTHYROXINE SODIUM 50 MCG TABLET PO SCH (07:56)
[2019-03-04 08:59] LABS: INR 1.1; PROTHROMBIN TIME (PATIENT) 11.5 SECONDS (9.5-12.1)
--- NOTE | 2019-03-04 10:59 | Discharge Summary ---
Providers Discharge Summary Date: 03/04/19 Date of admission: 02/18/19 14:13 Attending physician: KALANI KWONG Primary care physician: LAUREL ROLDAN D.O. Consults: Consult Orders 02/18/19 15:11 Consult - Case Management NOW Comment: Reason For Exam: Discharge plans Physical Exam - Vital Signs Vital Signs: Vital Signs - Last 24 Hrs Temp Pulse Resp BP Pulse Ox 03/04/19 08:00 97.4 F L 86 15 131/68 98 03/03/19 20:00 98.1 F 93 H 16 104/42 96 - General General Appearance: Alert, Cooperative, No acute distress - Head Head exam detail: Abrasion (above left eye), Contusion (above left eye) - Respiratory Respiratory exam: Normal lung sounds bilaterally - Cardiovascular Cardiovascular Exam: Regular rate, Normal rhythm, Systolic murmur Peripheral Pulses: 2+: Radial (R), Radial (L) - GI/Abdominal GI/Abdominal exam: Soft, Normal bowel sounds - Extremities Extremities exam: Normal inspection. negative: Tenderness - Neurological Neurological exam: Alert - Psychiatric Psychiatric exam: Normal affect, Normal mood - Skin Skin exam: Dry Hospitalization - Hospitalization Admission Diagnosis: Deconditioning d/t hip displacement - Problem List (1) Physical deconditioning Current Visit: Yes Status: Acute Base Code: R53.81 - OTHER MALAISE Comment: 03/04/19 - hx of right hip pain from recent total hip replacement with complication of dislocation and hematoma after multiple falls. - Difficulty with transfering from wheelchair and is an assist with ambulation. - PT: Patient able to complete car transfer and able tp transfer to restroom with rolling walker. Continuing with gait training daily. - OT: Constat verbal cues reqired and moderate improvement in function. Therapy to continue 2-4 days/week as planned. 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 - Warfarin held 2/2 hematoma formation. - Anticoagulated on Eliquis. (3) Anticoagulated Current Visit: Yes Status: Acute Base Code: Z79.01 - CORRECTION (CURRENT) USE OF ANTICOAGULANTS Comment: 03/04/19 -Continue Eliquis 2.5mg PO BID (4) CAD (coronary artery disease) Current Visit: No Status: Acute Base Code: I25.10 - ATHSCL HEART DISEASE OF [place] CORONARY ARTERY W/O ANG PCTRS Comment: 03/04/19: - Hx of NSTEMI - Continue with BB, Nitrostat. (5) Chronic anemia Current Visit: No Status: Acute Base Code: D64.9 - ANEMIA, UNSPECIFIED Comment: 02/01/19: - Hx of Autoimmune hemolytic anemia. - Hgb 8.1 (6) Depression Current Visit: Yes Status: Chronic Base Code: F32.9 - MAJOR DEPRESSIVE DISORDER, SINGLE EPISODE, UNSPECIFIED Comment: 03/04/19 -Zoloft 25mg daily. (7) Systolic and diastolic CHF, chronic Current Visit: No Status: Chronic Base Code: I50.42 - CHRONIC COMBINED SYSTOLIC AND DIASTOLIC HRT FAIL Comment: 03/04/19 - Reported EF 45-50% - Continue Metoprolol 12.5mg daily, Lasix 40mg daily and K+ 10meq daily (8) History of ITP Current Visit: Yes Status: Acute Base Code: Z86.2 - PRSNL HISTORY OF DIS OF THE BLD/BLD-FORM ORG/IMMUN MECHNSM Comment: 03/01/19: - Hx of ITP - Plts 103 --> 79 - Pt managed by Heme/Oncology. (9) DNR (do not resuscitate) Current Visit: No Status: Acute Base Code: Z66 - DO NOT RESUSCITATE Comment: 03/04/19: - DNR on this admission. - Hospitalization Course Hospital Course: Delano Sousa is an 88 y.o. F who was [facility] for PT/OT d/t physical deconditioning. She recently discharged from the [facility] on 02/01/19 back to the assisted living facility ([facility]) where she has been living. Since d/c, she has had 2 hospitalizations at [facility]. She was admitted from 02/09/19 to 02/12/19 after a fall, had right hip hematoma, forehead laceration. She was discharged back to [facility] on 02/12/19. She then had another fall which resulted in a right hip dislocation. She then returned to [facility] and was inpatient there from 02/13/19 to 02/17/19. PMHx: DVT in LLE, Anemia, Autoimmune hemolytic anemia, ITP, HTN, HLD, hypothyroidism, Murmur, Alzheimer's disease, depression, acute CVA, PCP: Dr. Roldan 02/19/19 1230 Pt is sitting up in recliner chair. She is alert and appropriate. She denies having any pain. Denies sleep difficulties. Verified with pt's son that she signs her own DNR paperwork for which son agreed. DNR form signed by pt with witness present. She reports that she would like to get back home. Staff reports that she will c/o dizziness occasionally. 03/02 - 03/04: The patient is awake, alert and oriented. She is ambulating with assistance and was using the restroom on evaluation this morning. She has no new complaints at this time. All of her home medications are to be resumed. The patient is to continue care at [facility] and follow up with her primary care doctor within 1 week of discharge. Procedures: Cardiology Procedures 02/24/19 19:11 EKG ONCE Abnormal Labs: Abnormal Lab Results 02/20/19 02/25/19 02/25/19 Range/Units 22:50 06:20 06:20 RBC 2.90 L (3.80-5.40) M/uL Hgb 7.3 L (11.6-16.0) gm/dl Hct 26.0 L (35.0-47.0) % MCH 25.1 L (27-33) pg MCHC 28.1 L (32-36) g/dl RDW 23.9 H (11.5-14.5) % Plt Count 103 L (130-400) K/uL Lymphocytes 12.0 L (16-45) % Monocytes 35.0 H (0-9) % Chloride 108 H (98-107) mmol/L Creatinine 1.2 H (0.5-0.9) mg/dL Random Glucose (74-109) mg/dL Calcium 8.5 L (8.8-10.2) mg/dL TIBC (105-326) ug/dL Stl C.difficile Tox A&B Detected H (NOT DETECT) 03/01/19 03/01/19 Range/Units 18:17 18:17 RBC 3.21 L (3.80-5.40) M/uL Hgb 8.1 L (11.6-16.0) gm/dl Hct 28.9 L (35.0-47.0) % MCH 25.2 L (27-33) pg MCHC 28.0 L (32-36) g/dl RDW 24.2 H (11.5-14.5) % Plt Count 79 L (130-400) K/uL Lymphocytes 11.0 L (16-45) % Monocytes 26.0 H (0-9) % Chloride (98-107) mmol/L Creatinine 1.2 H (0.5-0.9) mg/dL Random Glucose 138 H (74-109) mg/dL Calcium (8.8-10.2) mg/dL TIBC 423 H (105-326) ug/dL Stl C.difficile Tox A&B (NOT DETECT) Discharge Medications - Discharge Medications Home Medications: Ambulatory Orders Acetaminophen [Tylenol 500Mg Tab] 1 tab PO Q8HR PRN 12/13/18 [Last Taken 1 Day Ago ~02/08/19] Alendronate Sodium 70 mg PO WEEKLY 12/13/18 [Last Taken 1 Day Ago ~02/08/19] Calcium Carbonate/Vitamin D3 [Calcium 600 + Vit D Tablet] 1 each PO DAILY 12/13/18 [Last Taken 1 Day Ago ~02/08/19] Cyanocobalamin (Vitamin B-12) [Vitamin B12] 5,000 mcg PO DAILY 12/13/18 [Last Taken 1 Day Ago ~02/08/19] Danazol 200 mg PO DAILY 12/13/18 [Last Taken 1 Day Ago ~02/08/19] Folic Acid 1 mg PO DAILY 12/13/18 [Last Taken 1 Day Ago ~02/08/19] Levothyroxine Sodium 50 mcg PO DAILY 12/13/18 [Last Taken 1 Day Ago ~02/08/19] Metoprolol Succinate 12.5 mg PO DAILY 12/13/18 [Last Taken 1 Day Ago ~02/08/19] Multivitamin [Multiple Vitamins] 1 each PO DAILY 12/13/18 [Last Taken 1 Day Ago ~02/08/19] Sertraline HCl [Zoloft] 50 mg PO DAILY 12/13/18 [Last Taken 1 Day Ago ~02/08/19] Furosemide 40 mg PO DAILY 12/17/18 [Last Taken 1 Day Ago ~02/08/19] Potassium Chloride 10 meq PO DAILY 12/17/18 [Last Taken 1 Day Ago ~02/08/19] Prednisone [Prednisone 1Mg] 2.5 mg PO DAILYWM 14 Days #35 tablet 02/01/19 [Last Taken 1 Day Ago ~02/08/19] Zinc Oxide [Desitin] 10 gm TOP ASDIR PRN tube 02/01/19 [Last Taken 1 Day Ago ~02/08/19] Eltrombopag Olamine [Promacta] 50 mg PO DAILY 02/09/19 [Last Taken 1 Day Ago ~02/08/19] Warfarin Sodium [Coumadin] 4 mg PO [id number] 02/09/19 [Last Taken 1 Day Ago ~02/08/19] Discharge Plan - Discharge Instructions Activity at Discharge: Increase Activity as Tolerated Diet at Discharge: Regular Diet Additional Instructions: [facility] will see you at home. They will contact you to schedule the first visit within 24-48 hours of discharge. Quality Measures - Quality Measures Quality Measures: Advance Directives, Coronary Artery Disease: Antiplatelet Therapy, Documentation of Current Medications in Medical Record, Elder Maltreatment Screen and Follow-Up Plan, Heart Failure, Screening for High Blood Pressure and F/U Documented - Current Medications Quality Measure: Measure #130: Documentation of Current Medications Documentation of Current Medications: <Current Medications Documented/Reviewed> [G8427] - Blood Pressure Screening Quality Measure: Screening for High Blood Pressure and Follow-Up Documented Does Patient Have Any of the Following: Active Dx of HTN Blood Pressure Classification: Normal BP Reading Systolic Measurement: 106 Diastolic Measurement: 58 Screening for High Blood Pressure: Patient Exclusion, Hx of HTN [G9744] - Coronary Artery Disease Quality Measure: Measure #6: Coronary Artery Disease (CAD) Antiplatelet Therapy: <ASA or clopidogrel prescribed> [4086F] - Heart Failure (LAURIE/ARB Therapy) Quality Measure: Heart Failure Left Ventricular Systolic Function: Unknown LAURIE Inhibitor or ARB Therapy for LVSD: Not Eligible - Heart Failure (Beta-elder Therapy) Quality Measure: Heart Failure Left Ventricular Systolic Function: Unknown Beta-Elder Therapy for LVEF < 40%: Not Eligible - Advance Directives Quality Measure: Measure #47: Care Plan Advance Directives Established: No Advance Directives Information Provided To Patient: No Advance Directives on File: Yes Living Will: Yes Power of Plastic Outfitter: Yes Power of Plastic Outfitter Name: Enrique Sousa [phone] Advance Care Planning: <Care Plan/Decision Maker Documented; Discussed & Documented> [5322F] - Elder Abuse Suspicion Index Screening: Elder Abuse Suspicion Index Screening Rely on people for bathing, dressing, shopping, banking, etc: Yes Prevented from getting food, clothes, medication, etc: No Made to feel shamed or threatened by someone: No Forced to sign papers or use money against will: No Feel afraid, touched in ways not wanted or hurt physically: No Poor eye contact, withdrawn, malnourished, cuts or bruises: No Screening Result: Negative result EASI Reference Information: Antonella GLORIA, Sisi C, Abdullahi D, Araceli Trujillo.Development and validation of a tool to assist physicians identification of elder abuse: The Elder Abuse Suspicion Index (EASI ). Journal of Elder Abuse and Neglect, 2008; 20 (3): 276-300. - Elder Maltreatment Screen Quality Measures: Elder Maltreatment Screen and Follow-Up Plan Elder Maltreatment Screen: <Negative, No Follow-Up Plan Required> [G2610]
[2019-03-04] MEDS: METOPROLOL SUCC 25 MG TAB.ER PO SCH (11:54)
[2019-03-04] MEDS: CALCIUM CARB/VITAMIN D 500MG/200IU PO SCH (11:55)
[2019-03-04] MEDS: APIXABAN 2.5MG TABLET PO SCH (11:55)
[2019-03-04] MEDS: SERTRALINE HCL 50 MG TABLET PO SCH (11:55)
[2019-03-04] MEDS: POTASSIUM CHLORIDE 10 MEQ TAB PO SCH (11:56)
[2019-03-04] MEDS: FOLIC ACID 1 MG TABLET PO SCH (11:56)
[2019-03-04] MEDS: PROMACTA 75 MG PO SCH (11:56)
[2019-03-04] MEDS: FUROSEMIDE 20 MG TABLET PO SCH (11:56)
[2019-03-04] MEDS: DANAZOL 200 MG PO SCH (11:56)
== END 2019-03-04 13:55 | DRG 947 ==
LOC: MEDSURG 02-18 14:13
PROVIDERS: ADMIT Internal Medicine; ATTEND Internal Medicine
DX: R53.81 Other malaise (principal); I63.89 Other cerebral infarction; S73.004A Unspecified dislocation of right hip, initial encounter; I82.4Z2 Acute embolism and thrombosis of unspecified deep veins of left distal lower extremity; D59.1 Other autoimmune hemolytic anemias; I50.42 Chronic combined systolic (congestive) and diastolic (congestive) heart failure; D69.3 Immune thrombocytopenic purpura; I25.10 Atherosclerotic heart disease of native coronary artery without angina pectoris; R42 Dizziness and giddiness; D64.9 Anemia, unspecified; I10 Essential (primary) hypertension; E78.5 Hyperlipidemia, unspecified; E03.9 Hypothyroidism, unspecified; R01.1 Cardiac murmur, unspecified; G30.9 Alzheimer's disease, unspecified; F02.80 Dementia in other diseases classified elsewhere, unspecified severity, without behavioral disturbance, psychotic disturbance, mood disturbance, and anxiety; F32.9 Major depressive disorder, single episode, unspecified; I25.2 Old myocardial infarction; Z66 Do not resuscitate; Z79.01 Long term (current) use of anticoagulants
CPT/HCPCS: 80048; 82272; 83550; 85027; 85610; 87493; 93005; 97110; 99306; 99309; 99310; 99316

== ENCOUNTER 2019-04-02 18:47 | Emergency (ER) | payer MEDICARE ==
[2019-04-02] MEDS ORDERED: IPRATROPIUM/ALBUTEROL (0.5MG/3MG) NEB INH ONE (19:01)
--- NOTE | 2019-04-02 19:06 | Emergency Department Record ---
History of Present Illness - General Chief Complaint: Shortness of breath Stated Complaint: FEVER, WHEEZING Time Seen by Provider: 04/02/19 18:53 Source: Patient, Family Mode of Arrival: Wheelchair Limitations: No limitations - History of Present Illness Initial Comments: 88 yo female presents to ED for evaluation of low-grade fever and "wheezing" that began this morning, resolved upon arrival to the ED for evaluation. Patient reports that she "feels fine" on examination. Family reports that the patient was wheezing on the phone earlier this evening prompting visit to the ED. Patient denies history of COPD or asthma, however review of the patient's previous records reveals that the patient does have a history of COPD. Patient denies using albuterol at home, reports mild non-productive cough symptoms. MD Complaint: Cough, Shortness of breath Onset/Timin -: Days(s) Severity: Moderate Consistency: Intermittent Improves With: Nothing Worsens With: Nothing Known History Of: COPD Associated Symptoms: Denies other symptoms Treatments Prior to Arrival: None - Related Data Home Oxygen Therapy: No Home Medications Medication Instructions Recorded Confirmed Last Taken Apixaban [Eliquis] 2.5 mg PO BID 04/02/19 04/02/19 Unknown Atorvastatin Calcium 40 mg PO QHS 04/02/19 04/02/19 Unknown Nitroglycerin 0.4MG [Nitrostat 1 tab PO ASDIR PRN 04/02/19 04/02/19 Unknown 0.4MG] Previous Rx's Medication Instructions Recorded Zinc Oxide [Desitin] 10 gm TOP ASDIR PRN tube 02/01/19 Allergies Allergy/AdvReac Type Severity Reaction Status Date / Time No Known Drug Allergies Allergy Verified 02/09/19 05:00 Review of Systems Constitutional: Reports: Fever. Denies: Chills, Malaise, Night sweats Eyes: Denies: Eye discharge, Eye pain ENT: Denies: Congestion, Ear pain, Epistaxis Respiratory: Reports: Cough, Wheezes. Denies: Dyspnea Cardiovascular: Denies: Chest pain, Dyspnea on exertion, Palpitations Endocrine: Denies: Fatigue, Heat or cold intolerance Gastrointestinal: Denies: Abdominal pain, Nausea, Vomiting Genitourinary: Denies: Incontinence, Retention Musculoskeletal: Denies: Arthralgia, Back pain Skin: Denies: Bruising, Change in color Neurological: Denies: Abnormal gait, Confusion, Headache, Seizure Psychiatric: Denies: Anxiety Hematological/Lymphatic: Denies: Anemia, Blood Clots Past Medical History - SOCIAL HISTORY Smoking Status: Never smoker - RESPIRATORY Hx Respiratory Disorders: Yes Hx COPD: Yes - CARDIOVASCULAR Hx Deep Vein Thrombosis: Yes (s/p IVC filter) Comment:: CAD, EF 45-50% - NEURO Hx Dementia: Yes - GI Hx GI Disorders: No - Hx Genitourinary Disorders: No - ENDOCRINE Hx Thyroid Disease: Yes (hypo) Comment:: autoimmune hemolytic anemia, ITP - MUSCULOSKELETAL Comment:: deconditioning - PSYCH Hx Psych Problems: No - HEMATOLOGY/ONCOLOGY Hx Hematology/Oncology Disorders: No Family Medical History Hx Dementia: Father, Brother/Sister Hx Diabetes: Grandparents Hx Heart Disease: Father Physical Exam - General General Appearance: Alert, Oriented x3, Cooperative, No acute distress Limitations: No limitations - Head Head exam: Atraumatic, Normocephalic, Normal inspection Head exam detail: negative: Abrasion, Contusion, Malcolm's sign, General tenderness, Hematoma, Laceration - Eye Eye exam: Normal appearance. negative: Conjunctival injection, Periorbital swelling, Periorbital tenderness, Scleral icterus - ENT Ear exam: negative: Auricular hematoma, Auricular trauma Nasal Exam: negative: Active bleeding, Discharge, Dried blood, Foreign body Mouth exam: negative: Drooling, Laceration, Muffled voice, Tongue elevation - Neck Neck exam: Normal inspection. negative: Meningismus, Tenderness - Respiratory Respiratory exam: Decreased breath sounds. negative: Rales, Respiratory distress, Rhonchi, Stridor - Cardiovascular Cardiovascular Exam: Regular rate, Normal rhythm, Systolic murmur - GI/Abdominal GI/Abdominal exam: Soft. negative: Rebound, Rigid, Tenderness - Rectal Rectal exam: Deferred - exam: Deferred - Extremities Extremities exam: negative: Calf tenderness, Pedal edema, Tenderness - Back Back exam: Denies: CVA tenderness (R), CVA tenderness (L) - Neurological Neurological exam: Alert, Oriented X3. negative: Motor sensory deficit - Psychiatric Psychiatric exam: Normal affect, Normal mood - Skin Skin exam: Normal color. negative: Abrasion Type of lesion: negative: abrasion Course - Reevaluation(s) Reevaluation #1: 04/02/19 20:48 CXR: mild-moderate left sided pleural effusion Patient reassessed, resting comfortably at this time. Patient does experience intermittent episodes of SOB that resolve in 1-2 minutes, oxygenation 95%-98% during episodes. Discussed with family that we can review all results when labs are completed for disposition plan. Reevaluation #2: 04/02/19 22:21 Laboratory studies were reviewed and appear grossly unremarkable for an acute process except for the following: Hgb 9.0 (up from 7.2 03/31/19) GFR 32 (baseline 39) BNP >35,000 Troponin 0.488 Patient and her family members were updated on all results. After reviewing all results, recommended transfer to [facility] for consultation wi th the patient's belt cutter (Amanda) for likely CHF and elevated Troponin. Family members (DPOA) report that admission to [facility] results in worsening confusion and dementia, causes numerous problems for the patient. Following discussion and shared decision making, family would prefer to take the patient back to [facility] as she does not have evidence for pneumonia (family's main concern). Family also reports that the patient's Troponin is chronically elevated since October of this year. Patient is resting comfortably at this time, will discharge the patient back to [facility] with instructions to return to the ED for any sustained reoccurrence of MARLON (longer than 2-3 minutes as patient's duration usually resolve after this time frame). Family is in agreement with the plan of care as discussed. Will hold on increasing the patient's lasix due to family's feelings about lowering the medication and due to patient's CRF. Following discussion with the patient and family memebers regarding transfer, family (DPOA) reports that they want to take the patient back to [facility] AMA at this time. Risks of , permanent impairment, or worsening of their current condition were discussed as well as the benefit of transfer for cardiac evaluation and likely echo for further evaluation of their presenting symptoms. Family (DPOA) verbalizes understanding of all risks and benefits, desires to leave AMA despite these risks. Based on my examination, the patient is alert, oriented, and answers all questions appropriately but does suffer from dementia. Patients family was present for the duration of our discussion and is making the decision to take the patient back to [facility] at this time. Family was encouraged to return to the ED immediately if the patient's symptoms worsen. Medical Decision Making - Lab Data Result diagrams: 04/02/19 20:20 04/02/19 20:20 Disposition Disposition: Discharge Clinical Impression: Elevated troponin CHF (congestive heart failure) Qualifiers: Heart failure type: unspecified Heart failure chronicity: unspecified Qualified Code(s): I50.9 - Heart failure, unspecified Anemia Qualifiers: Anemia type: unspecified type Qualified Code(s): D64.9 - Anemia, unspecified Chronic renal disease Qualifiers: Chronic kidney disease stage: stage 3 (moderate) Qualified Code(s): N18.3 - Chronic kidney disease, stage 3 (moderate) Disposition: Against Medical Advice Condition: (2) Stable Instructions: Heart Failure (ED) Additional Instructions: Return to ED if your symptoms worsen or if you have any concerns. Follow-up with your family doctor in 3-5 days as directed. Follow-up with Dr. Pineda/Kian Friday as discussed. Forms: Patient Portal Access Time of Disposition: 22:28 Quality - Quality Measures Quality Measures: N/A - Blood Pressure Screening Does Patient Have Any of the Following: No Blood Pressure Classification: Normal BP Reading Systolic Measurement: 116 Diastolic Measurement: 72 Screening for High Blood Pressure: < Normal BP, F/U Not Required > [G8783]
[2019-04-02 20:33] LABS: ABSOLUTE NEUTROPHIL COUNT 2.32; HEMATOCRIT 31.2 % (35.0-47.0); MEAN CELL VOLUME 90.4 fl (81-97); MEAN CORPUSCULAR HGB CONC 28.8 g/dl (32-36); PLATELET COUNT 91 K/uL (130-400); RED BLOOD COUNT 3.45 M/uL (3.80-5.40); RED CELL DISTRIBUTION WIDTH 23.3 % (11.5-14.5); WHITE BLOOD COUNT W/O DIFF 4.3 K/uL (4.2-12.2)
[2019-04-02 21:05] LABS: ANISOCYTOSIS 3+; HYPOCHROMIA 1+; PLATELET ESTIMATE DECREASED (NORMAL); POLYCHROMASIA 1+; SCHISTOCYTES 1+
[2019-04-02 21:15] LABS: BLOOD UREA NITROGEN 30 mg/dL (8-23); CREATININE 1.6 mg/dL (0.5-0.9); EST GLOMERULAR FILTRATION RATE 32 mL/min
[2019-04-02 21:16] LABS: TOTAL PROTEIN 6.2 g/dL (6.6-8.7)
[2019-04-02 21:18] LABS: GLUCOSE,RANDOM 111 mg/dL (74-109)
[2019-04-02 21:21] LABS: ALB/GLOB RATIO 1.3 (1.1-1.8); ALBUMIN 3.5 g/dL (4.0-5.0); ALKALINE PHOSPHATASE 65 U/L (35-104)
--- NOTE | 2019-04-06 12:12 | RADIOLOGY REPORT ---
STUDY: Two-view chest. CLINICAL HISTORY: Cough and weakness. TECHNIQUE: AP and lateral views of the chest were obtained. COMPARISON: 12/13/2018 FINDINGS: Dextroconvex scoliosis is present within the thoracic spine. There are chronic-appearing compression deformities within the mid thoracic spine with associated increased kyphosis. The heart is enlarged. The mediastinum and pulmonary vasculature appear normal. The lungs are hyperinflated consistent with underlying COPD. There is a small to moderate size left pleural effusion which is new from the previous examination. There is associated mild left basilar atelectasis. There is minor blunting of the right lateral costophrenic angle. There are no visible acute pulmonary infiltrates. There are multiple old right rib fractures. IMPRESSION: 1. Small to moderate left pleural effusion with associated basilar atelectasis. 2. Tiny right pleural effusion. 3. Cardiomegaly. 4. Additional chronic findings as above. MTDD
== END 2019-04-02 22:40 | disposition left against medical advice (07) ==
LOC: ER 18:47
DX: I50.9 Heart failure, unspecified (principal); R79.89 Other specified abnormal findings of blood chemistry; D64.9 Anemia, unspecified; I25.10 Atherosclerotic heart disease of native coronary artery without angina pectoris; N18.3 Chronic kidney disease, stage 3 (moderate); F03.90 Unspecified dementia, unspecified severity, without behavioral disturbance, psychotic disturbance, mood disturbance, and anxiety; Z79.01 Long term (current) use of anticoagulants
CPT/HCPCS: 71046; 80053; 83880; 84484; 85027; 94640; 99285

== ENCOUNTER 2019-04-05 08:38 | Inpatient (IN) | payer MEDICARE ==
--- NOTE | 2019-04-05 08:59 | Emergency Department Record ---
History of Present Illness - General Chief Complaint: Altered Mental Status Time Seen by Provider: 04/05/19 08:41 Source: Patient, EMS Mode of Arrival: EMS Limitations: Altered mental status - History of Present Illness Initial Comments: The patient is here due to becoming unresponsive at [facility] an hour prior to presenting to the ER. She was doing well last evening and early this AM and was placed in a chair at [facility] and then later was found unresponsive. The patient now is awake and denying any pain or discomfort. She is sleepy but arousable. The patient presently is denying any pain or SOB. She does have a hx of COPD and was here 3 days ago in the ER and had a pleural effusion identified. The patient was to be transferred to [facility] for evaluation but family declined and took her back to [facility] AMA. Complaint: Altered mental status, Confusion Onset/Timin -: Hour(s) Severity: Mild Consistency: Intermittent Context: Unknown Associated Symptoms: Denies other symptoms - Related Data Previous Rx's Medication Instructions Recorded Zinc Oxide [Desitin] 10 gm TOP ASDIR PRN tube 02/01/19 Allergies Allergy/AdvReac Type Severity Reaction Status Date / Time No Known Drug Allergies Allergy Verified 02/09/19 05:00 Travel Screening - Travel/Exposure Within Last 30 Days Have you traveled within the last 30 days?: No Review of Systems Constitutional: Denies: Chills, Fever, Malaise Eyes: Denies: Eye discharge ENT: Denies: Congestion Respiratory: Reports: Dyspnea. 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) Comment:: CAD, EF 45-50% - NEURO Hx Neuro Disorders: Yes Hx Dementia: Yes - GI Hx GI Disorders: No - Hx Genitourinary Disorders: No - ENDOCRINE Hx Endocrine Disorders: No Hx Thyroid Disease: Yes (hypo) Comment:: autoimmune hemolytic anemia, ITP - MUSCULOSKELETAL Hx Musculoskeletal Disorders: No Comment:: deconditioning - PSYCH Hx Psych Problems: No - HEMATOLOGY/ONCOLOGY Hx Hematology/Oncology Disorders: No Family Medical History Any Significant Family History?: Yes Hx Dementia: Father, Brother/Sister Hx Diabetes: Grandparents Hx Heart Disease: Father Physical Exam - General General Appearance: Mild distress Limitations: Altered mental status (The patient does open her eyes to voice and has equal hand grasps. She denies any pain or discomfort but her speech is slurred.) - Head Head exam: Atraumatic, Normocephalic - Eye Eye exam: Normal appearance, PERRL. negative: Conjunctival injection - ENT ENT exam: Mucous membranes dry - Neck Neck exam: Normal inspection, Full ROM. negative: Tenderness - Respiratory Respiratory exam: Accessory muscle use (mild.), Decreased breath sounds. negative: Normal lung sounds bilaterally - Cardiovascular Cardiovascular Exam: Regular rate, Normal rhythm, Normal heart sounds - GI/Abdominal GI/Abdominal exam: Soft, Normal bowel sounds. negative: Tenderness - Extremities Extremities exam: Pedal edema (Trace bilaterally. ) - Neurological Neurological exam: Abnormal gait (Chronic.), Altered (The patient does open her eyes to voice.), Motor sensory deficit (There is a mild L facial droop and her L hand grasp is slightly decreased compared to the R.). negative: Alert, Normal gait, Oriented X3 (The patient is only oriented to voice. ) Course Vital Signs 04/05/19 08:40 Temperature 97.9 F Pulse Rate 92 H Respiratory 18 Rate Blood Pressure 121/71 Pulse Ox 97 - Reevaluation(s) Reevaluation #1: I did discuss the case with the patient's son Enrique. He was updated as to the events and did state clearly the patient is a DNR. 04/05/19 09:04 Reevaluation #2: The patient's condition has not changed. She is still only answering yes and no to questions and does not have normal speech per her son. She seems to be moving all 4 ext equally but is quite confused. I did discuss the workup with the patient's son who is the patient's DPOA and he would like the patient admitted to the hospital but be DNR. It seems the patient is in heart failure and has had a recent [place]. She at baseline is confused and is unable to walk on her own so presently the confusing and speech issues seem to be new. The patient may have had a CVA but due to the overall poor health it is very difficult to determine that. With all the medical issues the patient has the DPOA does not want any aggressive treatment like a heart catheterization or Stroke evaluation with contrast. 04/05/19 10:45 Reevaluation #3: I did discuss the case with Dr. Du and he agrees to the admission and is aware the patient is DNR. 04/05/19 10:56 Medical Decision Making - Data Complexity MDM Data: Labs Ordered and/or Reviewed, X-Ray Ordered and/or Reviewed, EKG Ordered and/or Reviewed - Lab Data Result diagrams: 04/05/19 09:20 04/05/19 09:20 - EKG Data -: EKG Interpreted by Me EKG: No Acute Changes, Unchanged From Previous - Radiology Data Radiology results: Report reviewed (CXR: CMG, L sided effusion vs atelectasis vs infiltrate. Head CT: Neg for acute changes.) Disposition Disposition: Admit Clinical Impression: Physical deconditioning, Elevated troponin, Chronic renal disease, Confusion Disposition: Still a Patient at [facility] Decision to Admit: Admit from ER Decision to Admit Date: 04/05/19 Decision to Admit Time: 10:58 Accepting Physician: Ana Laura Time Discussed w/Accepting Physician: 10:58 Condition: (2) Stable Forms: Patient Portal Access Time of Disposition: 10:58 Quality - Quality Measures Quality Measures: N/A - Blood Pressure Screening View Details: Yes Does Patient Have Any of the Following: No Blood Pressure Classification: Pre-Hypertensive BP Reading Systolic Measurement: 121 Diastolic Measurement: 71 Screening for High Blood Pressure: < Pre-Hypertensive BP, F/U Documented > [G8950] Pre-Hypertensive Follow-up Interventions: Referral to alternative/primary care provider.
[2019-04-05] MEDS ORDERED: IPRATROPIUM/ALBUTEROL (0.5MG/3MG) NEB INH ONE (09:03)
[2019-04-05 09:24] LABS: ARTERIAL BLOOD GAS pH 7.48 (7.35-7.45)
[2019-04-05 09:25] LABS: ARTERIAL BLD GAS O2 SATURATION 90.9 % (95-98); ARTERIAL BLOOD GAS BASE EXCESS -0.1 mmol/L (-2 - 3); ARTERIAL BLOOD GAS PCO2 31.1 mmHg (35-48)
[2019-04-05 09:26] LABS: ALLEN TEST PASS
[2019-04-05 09:29] LABS: ABSOLUTE NEUTROPHIL COUNT 1.98; HEMATOCRIT 28.8 % (35.0-47.0); MEAN CELL VOLUME 90.9 fl (81-97); MEAN CORPUSCULAR HEMOGLOBIN 25.2 pg (27-33); MEAN CORPUSCULAR HGB CONC 27.8 g/dl (32-36); PLATELET COUNT 97 K/uL (130-400); RED BLOOD COUNT 3.17 M/uL (3.80-5.40); RED CELL DISTRIBUTION WIDTH 22.8 % (11.5-14.5); WHITE BLOOD COUNT W/O DIFF 3.6 K/uL (4.2-12.2)
[2019-04-05 09:41] LABS: BILIRUBIN,TOTAL 0.4 mg/dL (0.2-1.0); CREATININE 1.6 mg/dL (0.5-0.9); INR 1.2; PARTIAL THROMBOPLASTIN TIME 35.2 SECONDS (24.5-39.1); PROTHROMBIN TIME (PATIENT) 12.2 SECONDS (9.5-12.1)
[2019-04-05 09:45] LABS: PLATELET ESTIMATE NORMAL (NORMAL)
[2019-04-05 09:46] LABS: ALB/GLOB RATIO 1.6 (1.1-1.8); ALBUMIN 3.7 g/dL (4.0-5.0); ANISOCYTOSIS 2+; HYPOCHROMIA 1+; POLYCHROMASIA 1+
[2019-04-05 09:51] LABS: CKMB 3.6 ng/mL (<3.77)
[2019-04-05] MEDS ORDERED: FUROSEMIDE IV 40MG/4ML VIAL IVP ONE (10:22)
[2019-04-05] MEDS ORDERED: CEFTRIAXONE SODIUM 1 GM in 0.9 % SODIUM CHLORIDE 100ML 100 ML IVPB ONE (10:57)
[2019-04-05] MEDS ORDERED: AZITHROMYCIN 500 MG TABLET PO SCH (14:15)
[2019-04-05] MEDS: ACETAMINOPHEN 1,000 MG/100 ML BTL IVPB SCH ×3 (14:41→23:56)
[2019-04-05] MEDS ORDERED: FLU VAC QS 2019-20 (INPT, 6MO+) 60MCG/0.5ML IM ONE (18:38)
[2019-04-05] MEDS ORDERED: PNEUM 13-VAL/PF 0.5 ML IM ONE (18:42)
[2019-04-05] MEDS ORDERED: APIXABAN 2.5MG TABLET PO SCH (22:00)
[2019-04-05] MEDS ORDERED: CEFTRIAXONE 1GM/50ML BAG 1 GM/50 ML BAG IVPB SCH (23:00)
[2019-04-06] MEDS ORDERED: ZINC OXIDE 28.35 GM TUBE TOP ONE (01:37)
--- NOTE | 2019-04-06 04:57 | RADIOLOGY REPORT ---
EXAM: CHEST, SINGLE FRONTAL VIEW HISTORY: DIFFICULTY IN BREATHING, ALTERED MENTAL STATUS. TECHNIQUE: A single frontal view of the chest was obtained. Comparison: Prior two views of the chest dated 04/02/19. FINDINGS: Persistent marked cardiomegaly is demonstrated. Decrease in respiratory effort noted. Increasing central left pulmonary opacities are present. Persistent small left pleural effusion with basilar atelectasis versus consolidation. Persistent lateral right pleural thickening. IMPRESSION: 1. INCREASING CENTRAL LEFT GROUND GLASS AIR SPACE DISEASE AND/OR ATELECTASIS. 2. PERSISTENT SMALL LEFT PLEURAL EFFUSION WITH BASILAR COMPRESSIVE ATELECTASIS VERSUS CONSOLIDATION. JOB NUMBER: [id number] [facility]
--- NOTE | 2019-04-06 05:02 | CT SCAN REPORT ---
EXAM: HEAD CT WITHOUT IV CONTRAST HISTORY: MENTAL STATUS CHANGES, UNRESPONSIVE, INTERMITTENT CONFUSION. TECHNIQUE: CT of the head was conducted without IV contrast with reconstruction of the coronal and sagittal planes. Comparison: Prior head CT 02/09/19. Hand dominance: Left. FINDINGS: No acute intracranial hemorrhage, midline shift or mass effect is identified. Again demonstrated are scattered areas of decreased attenuation about the deep white matter to include a stable appearing remote infarct involving the left parietal region, as well as bilateral occipital regions. No acute infarct evident. Calcified atherosclerosis is noted. The osseous structures appear intact. The paranasal sinuses and mastoid air cells are well aerated. Mild inferior right maxillary sinus mucosal thickening present. Calcified atherosclerosis is present. IMPRESSION: 1. NO ACUTE INTRACRANIAL HEMORRHAGE, MIDLINE SHIFT, OR MASS EFFECT. 2. 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 JOB NUMBER: [id number] [facility]
[2019-04-06] MEDS: ACETAMINOPHEN 1,000 MG/100 ML BTL IVPB SCH (06:03)
[2019-04-06] MEDS ORDERED: LEVOTHYROXINE SODIUM 50 MCG TABLET PO SCH (07:00)
[2019-04-06] MEDS ORDERED: ZINC OXIDE 28.35 GM TUBE TOP PRN (08:07)
--- NOTE | 2019-04-06 08:11 | History and Physical Report ---
DATE: 04/05/2019 CHIEF COMPLAINT: Dyspnea and decreased level of consciousness. HISTORY OF PRESENT ILLNESS: This 88-year-old female presented from [facility] with dementia, shortness of breath, difficulty to wake up, and was recently seen in our ER approximately 3 days prior with an elevated troponin. Refused transport to [facility] for further treatment and evaluation. Her hemoglobin in the ER today was 8.0. CT of her head was negative. Chest x-ray showing cardiomegaly, left pleural effusion, increasing infiltrate in the left lung. PAST MEDICAL HISTORY: Dementia. 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 PAST SURGICAL HISTORY: Hysterectomy, tonsillectomy. ALLERGIES: No known drug allergies. MEDICATIONS: 1. Alendronate 70 mg once a week. 2. Atorvastatin 40 mg at h.s. 3. Besivance suspension 0.6% 1 drop 3 times a day. That has been stopped by the eye doctor. 4. Calcium with vitamin D 2 tablets daily. 5. Danazol 200 mg 1 b.i.d. 6. She is on Durezol 0.05% for 14 days 4 times a day in the operated eye. Ending date is 04/15/2019. 7. Eliquis 2.5 mg b.i.d. 8. Folic acid 1000 mg a day. 9. Lasix 40 mg a day. 10. Eye vitamins one a day. 11. Levothyroxine 50 mcg daily. 12. Metoprolol succinate 25 mg daily. 13. Potassium chloride 10 mEq daily. 14. Promacta 50 mg daily. 15. Vitamin B12, 500 mcg daily. 16. Nasal spray 2 squirts each nostril as needed for nasal congestion. 17. Nitroglycerin sublingual p.r.n. 18. Tylenol 500 mg q.6 h. p.r.n. pain. 19. Zinc oxide to the topical areas of rash p.r.n. FAMILY/PSYCHOSOCIAL HISTORY: Father, brother, and sister have dementia. diabetes with the grandparents. Father has heart disease. She never smoked. No alcohol or drug use. REVIEW OF SYSTEMS: HEENT: No upper respiratory infection symptoms, cough, cold, or congestion. Cardiovascular: She is difficult to read for chest pain because she has dementia. She does not admit to chest pain. She is short of breath and breathing fast. Gastrointestinal: No nausea, vomiting, diarrhea, black stools, or bloody stools. Genitourinary: No dysuria. She is incontinent of urine. Musculoskeletal: Moving all 4 extremities. Neurological: No signs of a stroke but decreased level of talking and personality per the family. Endocrine: She has hypothyroidism. No diabetes. Integument: No rash, ulcers, change in moles, or yellow skin. PHYSICAL EXAMINATION: VITALS: Height 5 feet 5 inches, weight 140 pounds. Blood pressure 122/85, pulse 87, pulse ox 98% on room air. HEENT: Pupils are equal, round, and reactive to light and accommodation. Extraocular muscles are intact. Throat is clear. Nose is clear. She has decreased level of consciousness. She is breathing fast. NECK: Supple. No jugular venous distention. No hepatojugular reflux. No carotid bruits. Thyroid is smooth. CARDIOVASCULAR: Regular rate and rhythm with some PVCs. RESPIRATORY: Rales and rhonchi in the left lung. ABDOMEN: Soft, nontender. No hepatosplenomegaly, no masses, no tenderness. Bowel sounds are active. EXTREMITIES: 1+ pedal edema. BREASTS: Exam deferred. GYNECOLOGICAL: Exam deferred. RECTAL: Exam deferred. NEUROLOGIC: Decreased level of consciousness. Confusion. She is only oriented to name, not time or place. Cranial nerves II-XII intact. No gross defects. Sensation normal, strength normal. Deep tendon reflexes equal bilaterally with Babinski negative. IMPRESSION: 1. Left middle lobe pneumonia. 2. Dementia. 3. Hypothyroidism. 4. Status post myocardial infarction. 5. Congestive heart failure. 6. Cardiomyopathy. 7. Chronic renal insufficiency. 8. She is a Do Not Resuscitate. MTDD
[2019-04-06] MEDS ORDERED: CEFEPIME HCL 2 GM in 0.9 % SODIUM CHLORIDE 100ML 100 ML IVPB SCH (09:00)
--- NOTE | 2019-04-06 09:09 | Physician Progress Note ---
Subjective - Date Date of Physician Progress Note: 04/06/19 Objective - Vital Signs Vital Signs: Vital Signs - Last 24 Hrs Temp Pulse Pulse Resp BP BP Pulse Ox 04/06/19 08:42 98.7 F 70 16 149/74 86 L 04/06/19 04:52 97.9 F 81 18 136/63 97 04/06/19 04:50 97 04/06/19 01:58 97.5 F L 65 20 123/65 95 04/05/19 21:00 83 18 04/05/19 20:41 98.2 F 77 18 103/47 97 04/05/19 18:30 98.0 F 96 H 20 116/70 99 04/05/19 17:40 97 04/05/19 16:00 109 H 20 04/05/19 14:30 98.5 F 79 16 143/64 93 L 04/05/19 12:15 87 20 122/85 98 04/05/19 12:10 98.5 F 86 20 153/71 96 04/05/19 10:35 80 20 138/67 95 04/05/19 09:37 90 20 95 - General General Appearance: Moderate distress Limitations: Altered mental status (-pt turns toward voices, moaning and responding to some yes/no questions, not able to swallow) - Head Head exam: Atraumatic, Normocephalic - Eye Eye exam: Normal appearance. negative: Conjunctival injection - ENT ENT exam: Mucous membranes dry - Neck Neck exam: Full ROM, Other (JVD, pt is slumping to the left). negative: Tenderness - Respiratory Respiratory exam: Accessory muscle use (mod), Decreased breath sounds. negative: Normal lung sounds bilaterally - Cardiovascular Cardiovascular Exam: Irregular rhythm, JVD, Systolic murmur Peripheral Pulses: 2+: Radial (R), Radial (L), Dorsalis Pedis (R), Dorsalis Pedis (L) - GI/Abdominal GI/Abdominal exam: Soft, Normal bowel sounds. negative: Tenderness - Extremities Extremities exam: Joint swelling (left arm), Pedal edema (Trace bilaterally. ). negative: Normal capillary refill (decreased ) - Neurological Neurological exam: Altered (The patient does open her eyes to voice.), Motor sensory deficit (There is a mild L facial droop and her L hand grasp is slightly decreased compared to the R.). negative: Abnormal gait (Chronic.), Alert, Normal gait, Oriented X3 (The patient is only oriented to voice. ) - Psychiatric Psychiatric exam: Flat affect - Skin Skin exam: Dry, Mottled Assessment and Plan - Assessment and Plan (1) Confusion Current Visit: Yes Status: Acute Base Code: R41.0 - DISORIENTATION, UNSPECIFIED Comment: 04/06/19 -pt is not opening her eyes, not moving arms but does wiggle her toes -pt is responding to some yes/no questions with moans but is not able to talk, shrug, nor is she moving her head -Son Cain has been notifed of pt continued decline and he has been updated of the need hurry his morning visit -Hospice has been notified and [facility] is managing needs and probable transport back to [facility] for end of life care (2) CAP (community acquired pneumonia) Current Visit: Yes Status: Acute Base Code: J18.9 - PNEUMONIA, UNSPECIFIED ORGANISM Comment: 04/06/19 -CAP noted on CXR -ABX changed to cover pseudomonas as pt is an [facility] resident, recent inpt and rehab recipient and progressive decline in health -pt is not able to take anything orally, will continue IV ABX in hospice for comfort (3) CHF (congestive heart failure) Current Visit: No Status: Acute Qualifiers: Heart failure type: unspecified Heart failure chronicity: unspecified Qualified Code(s): I50.9 - Heart failure, unspecified Base Code: I50.9 - HEART FAILURE, UNSPECIFIED Comment: 04/06/19 (4) Hospice care Current Visit: Yes Status: Acute Base Code: Z51.5 - ENCOUNTER FOR PALLIATIVE CARE Comment: 04/06/19 -Hospice care intiated Results - Labs Result Diagrams: 04/05/19 09:20 04/05/19 09:20 Labs Last 24 Hours: Laboratory Results - last 24 hr 04/05/19 04/05/19 04/05/19 09:15 09:20 09:20 WBC 3.6 L RBC 3.17 L Hgb 8.0 L Hct 28.8 L MCV 90.9 MCH 25.2 L MCHC 27.8 L RDW 22.8 H Plt Count 97 L Neutrophils % 60.0 Eosinophils % Not Reportable Basophils % Not Reportable Absolute Neutrophils 1.98 Lymphocytes 16.0 Monocytes 24.0 H Platelet Estimate Normal Polychromasia 1+ Hypochromasia 1+ Anisocytosis 2+ PT 12.2 H INR 1.2 APTT 35.2 Puncture Site Right wrist pCO2 31.1 L pO2 64.0 L HCO3 23.0 Oxyhemoglobin Not Reportable ABG pH 7.48 H ABG O2 Saturation 90.9 L ABG Base Excess -0.1 Kvng Test Pass Carboxyhemoglobin Not Reportable Methemoglobin Not Reportable Actual Respiration Rate 20.0 H FiO2 Sodium Potassium Chloride Carbon Dioxide Anion Gap BUN Creatinine Estimated GFR Random Glucose Calcium Total Bilirubin AST ALT Alkaline Phosphatase Creatine Kinase CK-MB (CK-2) Troponin T NT-Pro-B Natriuret Pep Total Protein Albumin Globulin Albumin/Globulin Ratio 04/05/19 04/05/19 04/05/19 09:20 09:20 15:28 WBC RBC Hgb Hct MCV MCH MCHC RDW Plt Count Neutrophils % Eosinophils % Basophils % Absolute Neutrophils Lymphocytes Monocytes Platelet Estimate Polychromasia Hypochromasia Anisocytosis PT INR APTT Puncture Site pCO2 pO2 HCO3 Oxyhemoglobin ABG pH ABG O2 Saturation ABG Base Excess Kvng Test Carboxyhemoglobin Methemoglobin Actual Respiration Rate FiO2 Sodium 145 Potassium 4.1 Chloride 105 Carbon Dioxide 23.0 Anion Gap 17.0 H BUN 28 H Creatinine 1.6 H Estimated GFR 32 Random Glucose 91 Calcium 9.0 Total Bilirubin 0.40 AST 33 ALT 28 Alkaline Phosphatase 72 Creatine Kinase 522 H CK-MB (CK-2) 3.6 Troponin T 0.385 H* 0.356 H* NT-Pro-B Natriuret Pep 62045.00 H Total Protein 6.0 L Albumin 3.7 L Globulin 2.3 Albumin/Globulin Ratio 1.6 04/05/19 23:00 WBC RBC Hgb Hct MCV MCH MCHC RDW Plt Count Neutrophils % Eosinophils % Basophils % Absolute Neutrophils Lymphocytes Monocytes Platelet Estimate Polychromasia Hypochromasia Anisocytosis PT INR APTT Puncture Site pCO2 pO2 HCO3 Oxyhemoglobin ABG pH ABG O2 Saturation ABG Base Excess Kvng Test Carboxyhemoglobin Methemoglobin Actual Respiration Rate FiO2 Sodium Potassium Chloride Carbon Dioxide Anion Gap BUN Creatinine Estimated GFR Random Glucose Calcium Total Bilirubin AST ALT Alkaline Phosphatase Creatine Kinase CK-MB (CK-2) Troponin T Cancelled NT-Pro-B Natriuret Pep Total Protein Albumin Globulin Albumin/Globulin Ratio - Imaging and Cardiology CT scan - head Status: Report reviewed Chest x-ray Status: Report reviewed DVT/PE Assessment - Risk for VTE Risk for VTE: Yes Risk Level: High Risk Assessment Date: 04/06/19 Risk Assessment Time: 09:42 VTE Orders Placed or Will Be Placed: No VTE Reason for No Prophylaxis: Contraindicated - Active Medicaitons Current Medications: Current Medications Apixaban (Eliquis) 2.5 mg PO BID ADRIEL Furosemide (Lasix Iv) 40 mg IVP DAILY ADRIEL Acetaminophen (Ofirmev) 1,000 mg in 100 mls @ 400 mls/hr IVPB Q6H ADRIEL Last Admin: 04/06/19 06:03 Dose: Not Given Documented by: Azithromycin 500 mg/ Sodium (Chloride) 250 mls @ 250 mls/hr IVPB Q24H ADRIEL CEFEPIME HCL 2 gm/ Sodium (Chloride) 100 mls @ 200 mls/hr IVPB Q24H ADRIEL Levothyroxine Sodium (Synthroid) 50 mcg PO DAILYTHY ADRIEL Lisinopril (Zestril) 2.5 mg PO DAILY ADRIEL Metoprolol Succinate (Toprol Xl) 12.5 mg PO DAILY ADRIEL Promacta 50mg 1 each PO DAILY ADRIEL Potassium Chloride (Klor-Con) 10 meq PO DAILY ADRIEL Zinc Oxide (Desitin) 5 gm TOP ASDIR PRN PRN Reason: RASH AMI Plan - Labs Result Diagrams: 04/05/19 09:20 04/05/19 09:20
[2019-04-06] MEDS ORDERED: METOPROLOL SUCC 25 MG TAB.ER PO SCH (10:00)
[2019-04-06] MEDS ORDERED: POTASSIUM CHLORIDE 10 MEQ TAB PO SCH (10:00)
[2019-04-06] MEDS ORDERED: LISINOPRIL 5 MG TABLET PO SCH (10:00)
[2019-04-06] MEDS ORDERED: PROMACTA 50 MG PO SCH (10:00)
[2019-04-06] MEDS ORDERED: FUROSEMIDE IV 40MG/4ML VIAL IVP SCH (10:00)
--- NOTE | 2019-04-06 10:23 | Discharge Summary ---
Providers Discharge Summary Date: 04/06/19 Date of admission: 04/05/19 11:53 Expected Date of Discharge: 04/06/19 Attending physician: KALANI KWONG Primary care physician: LAUREL ROLDAN D.O. Physical Exam - Vital Signs Vital Signs: Vital Signs - Last 24 Hrs Temp Pulse Pulse Resp BP BP Pulse Ox 04/06/19 08:42 98.7 F 70 16 149/74 86 L 04/06/19 04:52 97.9 F 81 18 136/63 97 04/06/19 04:50 97 04/06/19 01:58 97.5 F L 65 20 123/65 95 04/05/19 21:00 83 18 04/05/19 20:41 98.2 F 77 18 103/47 97 04/05/19 18:30 98.0 F 96 H 20 116/70 99 04/05/19 17:40 97 04/05/19 16:00 109 H 20 04/05/19 14:30 98.5 F 79 16 143/64 93 L 04/05/19 12:15 87 20 122/85 98 04/05/19 12:10 98.5 F 86 20 153/71 96 04/05/19 10:35 80 20 138/67 95 - General General Appearance: Moderate distress Limitations: Altered mental status (-pt turns toward voices, moaning and responding to some yes/no questions, not able to swallow) - Head Head exam: Atraumatic, Normocephalic - Eye Eye exam: Normal appearance. negative: Conjunctival injection - ENT ENT exam: Mucous membranes dry - Neck Neck exam: Full ROM, Other (JVD, pt is slumping to the left). negative: Tenderness - Respiratory Respiratory exam: Accessory muscle use (mod), Decreased breath sounds. negative: Normal lung sounds bilaterally - Cardiovascular Cardiovascular Exam: Irregular rhythm, JVD, Systolic murmur Peripheral Pulses: 2+: Radial (R), Radial (L), Dorsalis Pedis (R), Dorsalis Pedis (L) - GI/Abdominal GI/Abdominal exam: Soft, Normal bowel sounds. negative: Tenderness - Extremities Extremities exam: Joint swelling (left arm), Pedal edema (Trace bilaterally. ). negative: Normal capillary refill (decreased ) - Neurological Neurological exam: Altered (The patient does open her eyes to voice.), Motor sensory deficit (There is a mild L facial droop and her L hand grasp is slightly decreased compared to the R.). negative: Abnormal gait (Chronic.), Alert, Normal gait, Oriented X3 (The patient is only oriented to voice. ) - Psychiatric Psychiatric exam: Flat affect - Skin Skin exam: Dry, Mottled Hospitalization - Hospitalization Admission Diagnosis: 1. Acute Confusion with Recent [place] - Problem List/Discharge Diagnosis (1) Confusion Current Visit: Yes Status: Acute Base Code: R41.0 - DISORIENTATION, UNSPECIFIED Comment: 04/06/19 -pt is not opening her eyes, not moving arms but does wiggle her toes -pt is responding to some yes/no questions with moans but is not able to talk, shrug, nor is she moving her head -Son Cain has been notifed of pt continued decline and he has been updated of the need hurry his morning visit -Hospice has been notified and [employer] is managing needs and probable transport back to [facility] for end of life care (2) CAP (community acquired pneumonia) Current Visit: Yes Status: Acute Base Code: J18.9 - PNEUMONIA, UNSPECIFIED ORGANISM Comment: 04/06/19 -CAP noted on CXR -ABX changed to cover pseudomonas as pt is an [facility] resident, recent inpt and rehab recipient and progressive decline in health -pt is not able to take anything orally, will continue IV ABX in hospice for comfort -spoke with Hospice Yvette Silver RN, and updated on pt current condition, she encouraged to stop ABX and she will order comfort measures to start immediately at arrival (3) CHF (congestive heart failure) Current Visit: No Status: Acute Discharge Diagnosis: Heart failure type: unspecified Heart failure chronicity: unspecified Qualified Code(s): I50.9 - Heart failure, unspecified Base Code: I50.9 - HEART FAILURE, UNSPECIFIED Comment: 04/06/19 -ECHO completed 04/05/19 EF 20-25%, multi valve stenosis -BNP 80995 -Left arm edema +3 noted, no change with addition of lasix, JVD noted (4) Hospice care Current Visit: Yes Status: Acute Base Code: Z51.5 - ENCOUNTER FOR PALLIATIVE CARE Comment: 04/06/19 -Hospice care intiated - Hospitalization Course Disposition: Hospice; pt to live @facility Procedures: Imaging and X-Rays 04/05/19 08:47 CHEST 1 VIEW [RAD] Stat 04/05/19 09:39 HEAD WO CONTRAST [CT] Stat Cardiology Procedures 04/05/19 08:47 [place] NOW EKG NOW 04/05/19 12:11 [place] .Continuous EKG QDX2@0600 04/05/19 12:31 Echo W/CF & Cardiac Doppler NOW Abnormal Labs: Abnormal Lab Results 04/05/19 04/05/19 04/05/19 Range/Units 09:15 09:20 09:20 WBC 3.6 L (4.2-12.2) K/uL RBC 3.17 L (3.80-5.40) M/uL Hgb 8.0 L (11.6-16.0) gm/dl Hct 28.8 L (35.0-47.0) % MCH 25.2 L (27-33) pg MCHC 27.8 L (32-36) g/dl RDW 22.8 H (11.5-14.5) % Plt Count 97 L (130-400) K/uL Monocytes 24.0 H (0-9) % PT 12.2 H (9.5-12.1) SECONDS pCO2 31.1 L (35-48) mmHg pO2 64.0 L (83-108) mmHg ABG pH 7.48 H (7.35-7.45) ABG O2 Saturation 90.9 L (95-98) % Actual Respiration Rate 20.0 H (10-18) /MIN Anion Gap (7-16) BUN (8-23) mg/dL Creatinine (0.5-0.9) mg/dL Creatine Kinase (26-192) U/L Troponin T (0-0.010) ng/mL NT-Pro-B Natriuret Pep (<450) pg/mL Total Protein (6.6-8.7) g/dL Albumin (4.0-5.0) g/dL 04/05/19 04/05/19 04/05/19 Range/Units 09:20 09:20 15:28 WBC (4.2-12.2) K/uL RBC (3.80-5.40) M/uL Hgb (11.6-16.0) gm/dl Hct (35.0-47.0) % MCH (27-33) pg MCHC (32-36) g/dl RDW (11.5-14.5) % Plt Count (130-400) K/uL Monocytes (0-9) % PT (9.5-12.1) SECONDS pCO2 (35-48) mmHg pO2 (83-108) mmHg ABG pH (7.35-7.45) ABG O2 Saturation (95-98) % Actual Respiration Rate (10-18) /MIN Anion Gap 17.0 H (7-16) BUN 28 H (8-23) mg/dL Creatinine 1.6 H (0.5-0.9) mg/dL Creatine Kinase 522 H (26-192) U/L Troponin T 0.385 H* 0.356 H* (0-0.010) ng/mL NT-Pro-B Natriuret Pep 52921.00 H (<450) pg/mL Total Protein 6.0 L (6.6-8.7) g/dL Albumin 3.7 L (4.0-5.0) g/dL Condition at Discharge: (4) Poor Discharge Medications - Discharge Medications Home Medications: Ambulatory Orders Zinc Oxide [Desitin] 10 gm TOP ASDIR PRN tube 02/01/19 [Last Taken 1 Day Ago ~02/08/19] Zinc Oxide [Desitin] 5 gm TOP ASDIR PRN tube 04/06/19 [Last Taken Unknown] Discharge Plan - Discharge Instructions Activity at Discharge: Other (pt back to [facility] with hospice) Diet at Discharge: Other (pt no longer able to swallow) Quality Measures - Quality Measures Quality Measures: Advance Directives, Coronary Artery Disease: Antiplatelet Therapy, Documentation of Current Medications in Medical Record, Elder Maltreatment Screen and Follow-Up Plan, Heart Failure, Screening for High Blood Pressure and F/U Documented - Current Medications Quality Measure: Measure #130: Documentation of Current Medications Documentation of Current Medications: <Current Medications Documented/Reviewed> [G8427] - Blood Pressure Screening Quality Measure: Screening for High Blood Pressure and Follow-Up Documented Does Patient Have Any of the Following: Active Dx of HTN Blood Pressure Classification: Pre-Hypertensive BP Reading Systolic Measurement: 122 Diastolic Measurement: 85 Screening for High Blood Pressure: Patient Exclusion, Hx of HTN [G9744] - Coronary Artery Disease Quality Measure: Measure #6: Coronary Artery Disease (CAD) Antiplatelet Therapy: Not Prescribed for Medical Reason [4086F with 1P] Medical Reason for NOT Prescribing Antiplatelet: Other Medical Reason (hospice) - Heart Failure (LAURIE/ARB Therapy) Quality Measure: Heart Failure Left Ventricular Systolic Function: LV Ejection Fraction less than 40% [3021F] LAURIE Inhibitor or ARB Therapy for LVSD: Not Prescribed for Medical Reason [4010F with 1P] Medical Reason for NOT Prescribing: Other Medical Reason (hospice) - Heart Failure (Beta-elder Therapy) Quality Measure: Heart Failure Left Ventricular Systolic Function: LV Ejection Fraction less than 40% [3021F] Beta-Elder Therapy for LVEF < 40%: Not Prescribed Reason Documented [G8451] Reason for NOT Prescribing: Other Medical Reason (hospice) - Advance Directives Quality Measure: Measure #47: Care Plan Advance Directives Established: No Advance Directives Information Provided To Patient: No Advance Directives on File: Yes Living Will: Yes Power of Harness Builder: Yes Power of Harness Builder Name: Enrique Sousa [phone] Advance Care Planning: <Care Plan/Decision Maker Documented; Discussed & Documented> [1123F] - Elder Abuse Suspicion Index Screening: Elder Abuse Suspicion Index Screening Rely on people for bathing, dressing, shopping, banking, etc: Yes Prevented from getting food, clothes, medication, etc: No Made to feel shamed or threatened by someone: No Forced to sign papers or use money against will: No Feel afraid, touched in ways not wanted or hurt physically: No Poor eye contact, withdrawn, malnourished, cuts or bruises: No Screening Result: Negative result EASI Reference Information: Antonella GLORIA, Sisi C, Abdullahi D, Araceli Trujillo.Development and validation of a tool to assist physicians identification of elder abuse: The Elder Abuse Suspicion Index (EASI ). Journal of Elder Abuse and Neglect, 2008; 20 (3): 276-300. - Elder Maltreatment Screen Quality Measures: Elder Maltreatment Screen and Follow-Up Plan Elder Maltreatment Screen: <Negative, No Follow-Up Plan Required> [G8779]
[2019-04-06] MEDS ORDERED: AZITHROMYCIN 500 MG in 0.9 % SODIUM CHLORIDE 250ML 250 ML IVPB SCH (16:00)
== END 2019-04-06 11:50 | disposition hospice, inpatient (51) | DRG 947 ==
LOC: ER 08:38 → MEDSURG 11:53
PROVIDERS: ADMIT Emergency Medicine; ATTEND Internal Medicine
DX: R41.0 Disorientation, unspecified (principal); I21.9 Acute myocardial infarction, unspecified; J18.9 Pneumonia, unspecified organism; D59.1 Other autoimmune hemolytic anemias; I42.9 Cardiomyopathy, unspecified; I50.9 Heart failure, unspecified; Z51.5 Encounter for palliative care; F03.90 Unspecified dementia, unspecified severity, without behavioral disturbance, psychotic disturbance, mood disturbance, and anxiety; N18.9 Chronic kidney disease, unspecified; R79.89 Other specified abnormal findings of blood chemistry; J44.9 Chronic obstructive pulmonary disease, unspecified; I25.10 Atherosclerotic heart disease of native coronary artery without angina pectoris; R32 Unspecified urinary incontinence; E03.9 Hypothyroidism, unspecified; Z66 Do not resuscitate; Z86.718 Personal history of other venous thrombosis and embolism; Z95.828 Presence of other vascular implants and grafts
CPT/HCPCS: 36600; 70450; 71045; 80053; 82375; 82550; 82553; 82803; 83880; 84484; 85027; 85610; 85730; 93005; 93010; 93306; 94640; 94760; 96365; 96374; 99223; 99233; 99285; J0696; J1940